=== PATIENT | female | born 1955 | race African-American/Black ===

== ENCOUNTER 2017-09-28 11:20 | Day surgery (SDC) | payer OTHER ==
--- OUTSIDE RECORDS SUMMARY | 2017-09-28 12:01 | XMS REPORT ---
:1955 Author Organization eClinicalWorks Care Team Providers Name Role Phone Landeros, Na Provider Role Unavailable Allergies, Adverse Reactions, Alerts Substance Reaction Event Type Sulfamethoxazole itch Drug Allergy Ciprofloxacin itch Drug Allergy Problems Problem Type Condition Code Onset Dates Condition Status Assessment Depression with anxiety F41.8 Active Assessment Diabetic neuropathy, painful E11.40 Active Assessment Urinary tract infection, site not N39.0 Active specified Assessment Rectal bleeding K62.5 Active Assessment Unspecified Escherichia coli [E. B96.20 Active coli] as the cause of diseases classified elsewhere Assessment Nicotine dependence F17.200 Active Assessment Allergic rhinitis J30.9 Active Assessment COPD (chronic obstructive pulmonary J44.9 Active disease) Assessment Hyperlipidemia E78.5 Active Problem Allergic rhinitis J30.9 Active Assessment Hypertension I10 Active Problem Hyperlipidemia E78.5 Active Assessment Type 2 diabetes E11.9 Active Problem Type 2 diabetes E11.9 Active Problem Snoring R06.83 Active Problem Glaucoma H40.9 Active Problem Rectal bleeding K62.5 Active Problem Urinary tract infection, site not N39.0 Active specified Problem Urinary incontinence R32 Active Problem Depression with anxiety F41.8 Active Problem Stress incontinence N39.3 Active Problem Degeneration of lumbar or M51.37 Active lumbosacral intervertebral disc Problem Encounter for screening colonoscopy Z12.11 Active Problem History of colon polyps Z86.010 Active Problem Diabetic neuropathy, painful E11.40 Active Problem Unspecified Escherichia coli [E. B96.20 Active coli] as the cause of diseases classified elsewhere Assessment History of colon polyps Z86.010 Active Problem Nicotine dependence F17.200 Active Assessment Encounter for screening colonoscopy Z12.11 Active Problem Dermatitis L30.9 Active Problem Microscopic hematuria R31.2 Active Problem ASCUS of cervix with negative high R87.610 Active risk HPV Problem COPD (chronic obstructive pulmonary J44.9 Active disease) Problem Hypertension I10 Active Problem Insomnia G47.00 Active Problem Vitamin D deficiency E55.9 Active Medications Medication Code Code Instructions Start End Date Status Dosage System Date Alcohol Prep NDC 0 twice a day MayAugust 16, Active as directed Pads 2017 2019 Glucometer ND 0 n/s n/s use as MayAugust 21, Active one directed 2017 Breo Ellipta ND 86027351919 100-25 MCG/INH Sep 20, Active 1 puff Inhalation Once 2017 a day Prometrium ND 93069185747 100 MG Orally Active 2 capsules Once a day at bedtime Cozaar ND 20236564905 100 MG Active 1 EACH ONCE A DAY ORALLY Effexor XR ND 35356654292 150 MG Orally Active 1 capsule Once a day with food blood glucose NDC 0 n/s n/s twice a MayAugust 16, Active one test strip day 2017 Lyrica ND 67988447805 75 MG Orally Active 1 capsule 1 Twice a day to 3 hours before bedtime in the evening Albuterol ND 90794887690 (5 MG/ML) 0.5% Active 1 ml as Sulfate Inhalation needed every 6 hrs Augmentin [facility] 82525617402 875-125 MG May Active 1 tablet Orally every 12 2017 hrs Chantix ND 94522209244 1 MG Orally MaySep 20, Active 1 tablet Continuing Twice a day 2017 Month Quinten Vitamin D3 ND 58070787948 50,000 PO once Active one tab a week Duexis [facility] 19181695685 800-26.6 MG Active 1 tablet Orally Three times a day Spiriva ND 24990059026 18 MCG Active 1 capsule HandiHaler Inhalation Once a day Metformin HCl ND 16407667917 850 MG Active 1 EACH 3 TIMES A DAY ORALLY Chantix [facility] 98973984501 0.5 MG X 11 & 1 Active not defined Starting Month MG X 42 Orally Quinten Simvastatin ND 08932899180 10 MG Orally Active 1 tablet in Once a day the evening ProAir HFA ND 70798299400 108 (90 Base) Active 2 puffs as MCG/ACT needed Inhalation every 6 hrs Lancets Super NDC 0 n/s finger May Active one Thin stick once 2017 HydrOXYzine ND 39678531750 25 MG Orally Active 1 capsule Pamoate every 8 hrs as needed Results No Known Results Summary Purpose eClinicalWorks Submission
--- OUTSIDE RECORDS SUMMARY | 2017-09-28 12:01 | XMS REPORT ---
:1955 Author Organization eClinicalWorks Care Team Providers Name Role Phone Zainab Hull Provider Role Unavailable Allergies, Adverse Reactions, Alerts Substance Reaction Event Type Sulfamethoxazole itch Drug Allergy Ciprofloxacin itch Drug Allergy Problems Problem Type Condition Code Onset Dates Condition Status Problem Allergic rhinitis J30.9 Active Assessment Stress incontinence N39.3 Active Problem Hyperlipidemia E78.5 Active Assessment Microhematuria R31.29 Active Problem Type 2 diabetes E11.9 Active [...] as the cause of diseases classified elsewhere Problem Nicotine dependence F17.200 Active Problem Dermatitis L30.9 Active Problem Microscopic hematuria R31.2 Active Problem ASCUS of cervix with negative high R87.610 Active risk HPV Problem COPD (chronic obstructive pulmonary J44.9 Active disease) Problem Hypertension I10 Active Problem Insomnia G47.00 Active Problem Vitamin D deficiency E55.9 Active Medications Medication Code Code Instructions Start End Status Dosage System Date Date Duexis [facility] 24653597280 800-26.6 MG Active 1 tablet Orally Three times a day Cozaar [facility] 72114508218 100 MG Active 1 EACH ONCE A DAY ORALLY HydrOXYzine ND 06083888354 25 MG Orally Active 1 capsule Pamoate every 8 hrs as needed Gabapentin ND 11723175410 300 MG Orally June 12, Active 1 capsule Twice a day 2018 before bedtime ProAir HFA [facility] 19656287768 108 (90 Base) Active 2 puffs as MCG/ACT needed Inhalation every 6 hrs Vitamin D3 [facility] 61558459408 50,000 PO once Active one tab a week Lancets Super NDC 0 n/s finger May Active one Thin stick once 2017 Chantix ND 11307181573 0.5 MG X 11 & 1 Active not defined Starting Month MG X 42 Orally Quinten Glucometer NDC 0 n/s n/s use as May Active one directed 2017 blood glucose NDC 0 n/s n/s twice a May Active one test strip day 2017 Breo Ellipta ND 14753965992 100-25 MCG/INH Sep 20, Active 1 puff Inhalation Once 2017 a day Spiriva ND 56849066250 18 MCG Active 1 capsule HandiHaler Inhalation Once a day Albuterol ND 47141441616 (5 MG/ML) 0.5% Active 1 ml as Sulfate Inhalation needed every 6 hrs Prometrium ND 97971797428 100 MG Orally Active 2 capsules Once a day at bedtime Chantix ND 88620361838 1 MG Orally MaySep 20, Active 1 tablet Continuing Twice a day 2017 Month Quinten Alcohol Prep NDC 0 twice a day May Active as directed Pads 2017 Effexor XR ND 44054384281 150 MG Orally Active 1 capsule Once a day with food Simvastatin ND 83838713725 10 MG Orally Active 1 tablet in Once a day the evening Metformin HCl ND 40746736318 850 MG Active 1 EACH 3 TIMES A DAY ORALLY Results Name Result Date Reference Range Unit Abnormality Flag URINALYSIS AUTO W/O SCOPE (15207) ----EDWARDO neg [id number] ----NIT neg [id number] ----PROTEIN neg [id number] ----pH 5.0 20170613 ----GLUCOSE neg [id number] ----KETONES neg [id number] ----SPECIFIC GRAVITY 1.020 [id number] ----BLO 2+ [id number] PVR ----PVR 12 [id number] Summary Purpose eClinicalWorks Submission
--- OUTSIDE RECORDS SUMMARY | 2017-09-28 12:01 | XMS REPORT ---
:1955 Author Organization eClinicalWorks Care Team Providers Name Role Phone Landeros, Na Provider Role Unavailable Allergies No Known Allergies Problems Problem Type Condition Code Onset Dates Condition Status Problem Type 2 diabetes E11.9 Active Problem Snoring R06.83 Active Problem Glaucoma H40.9 Active Problem Rectal bleeding K62.5 Active Problem Urinary incontinence R32 Active Problem Urinary tract infection, site not N39.0 Active specified Problem Depression with anxiety F41.8 Active Problem Degeneration of lumbar or M51.37 Active lumbosacral intervertebral disc Problem Stress incontinence N39.3 Active Problem Encounter for screening colonoscopy Z12.11 Active [...] I10 Active Problem Insomnia G47.00 Active Problem Allergic rhinitis J30.9 Active Assessment Diabetic neuropathy, painful E11.40 Active Problem Vitamin D deficiency E55.9 Active Problem Hyperlipidemia E78.5 Active Medications Medication Code Code Instructions Start End Date Status Dosage System Date Gabapentin ND 85841839936 300 MG Orally June 12, Active 1 capsule Twice a day 2018 before bedtime Lyrica ND 30102390605 75 MG Orally Inactive 1 capsule Twice a day 1 to 3 hours before bedtime in the evening Results No Known Results Summary Purpose eClinicalWorks Submission
--- OUTSIDE RECORDS SUMMARY | 2017-09-28 12:01 | XMS REPORT | Continuity of Care Document ---
:1955 Author Organization Interface Problems Problem Status Onset Date Classification Date Comments Source Reported Medications Medication Details Route Status Patient Ordering Order Source Instructions Provider Date Allergies, Adverse Reactions, Alerts Substance Category Reaction Severity Reaction Status Date Comments Source type Reported Immunizations Immunization Date Given Site Status Last Updated Comments Source Results Order Results Value Reference Date Interpretation Comments Source Name Range Vital Signs Vital Sign Value Date Comments Source Encounters Location Location Encounter Encounter Reason Attending ADM DC Status Source Details Type Number For Provider Date Date Visit Outpatient [id number] ZACK 07/12 [facility] [place] [id number] ZACK 08/18 [facility] [place] Procedures Procedure Code Date Perfomer Comments Source
--- OUTSIDE RECORDS SUMMARY | 2017-09-28 12:01 | XMS REPORT | Clinical Summary ---
:1955 Author Organization [facility] Address [address] [place] [address] Phone Care Team Providers Name Role Phone Unavailable Primary Care Provider Unavailable Allergies Active Allergy Reactions Severity Noted Date Comments Sulfa (Sulfonamide Antibiotics) Rash Low 05/06/2014 Current Medications Prescription Sig. Disp. Refills Start Date End Date Status simvastatin (ZOCOR) Take 20 mg by mouth Active 20 MG tablet nightly. metFORMIN Take 850 mg by mouth Active (GLUCOPHAGE) 850 MG 2 (two) times daily tablet with breakfast and dinner. gabapentin Take 300 mg by mouth Active (NEURONTIN) 300 MG 3 (three) times capsule daily. levofloxacin Take 750 mg by mouth Active (LEVAQUIN) 750 MG daily. tablet budesonide-formotero Inhale 2 puffs by Active l (SYMBICORT) 80-4.5 mouth via inhaler 2 mcg/actuation (two) times daily. inhaler albuterol HFA Inhale 1 puff by Active (VENTOLIN HFA) 90 mouth via inhaler mcg/actuation every 6 (six) hours inhaler as needed for Wheezing. venlafaxine Take 75 mg by mouth Active (EFFEXOR) 75 MG 2 (two) times daily. tablet lisinopril Take 5 mg by mouth Active (PRINIVIL,ZESTRIL) 5 daily. MG tablet ipratropium Take 500 mcg by Active (ATROVENT) 0.02 % nebulization 4 nebulizer solution (four) times daily. albuterol Take 2.5 mg by Active (PROVENTIL) 2.5 nebulization. mg/0.5 mL Nebu nebulizer solution albuterol HFA 2 puffs q 4 hrs for 1 Inhaler 0 05/07/2014 Active (PROAIR HFA) 90 two days, then prn mcg/actuation inhaler Active Problems Problem Noted Date COPD exacerbation (HCC) 05/06/2014 Social History Tobacco Use Types Packs/Day Years Used Date Current Every Day Smoker Cigarettes 0.5 Alcohol Use Drinks/Week oz/Week Comments No Sex Assigned at Date Recorded Not on file Last Filed Vital Signs Not on file Plan of Treatment Not on file Results Not on fileafter 09/27/2016
--- OUTSIDE RECORDS SUMMARY | 2017-09-28 12:02 | XMS REPORT ---
:1955 Author Organization eClinicalWorks Care Team Providers Name Role Phone Zainab Hull Provider Role Unavailable Allergies No Known Allergies [...] G47.00 Active Problem Allergic rhinitis J30.9 Active Problem Vitamin D deficiency E55.9 Active Problem Hyperlipidemia E78.5 Active Medications No Known Medications Results No Known Results Summary Purpose eClinicalWorks Submission
--- OUTSIDE RECORDS SUMMARY | 2017-09-28 12:02 | XMS REPORT ---
:1955 Author Organization eClinicalWorks Care Team Providers Name Role Phone Landeros, Na Provider Role Unavailable Allergies, Adverse Reactions, Alerts Substance Reaction Event Type Sulfamethoxazole itch Drug Allergy Ciprofloxacin itch Drug Allergy Problems Problem Type Condition Code Onset Dates Condition Status Assessment Depression with anxiety F41.8 Active Assessment Rectal bleeding K62.5 Active Assessment Nicotine dependence F17.200 Active Assessment Allergic rhinitis J30.9 Active Assessment Diabetic neuropathy, painful E11.40 Active Assessment COPD (chronic obstructive pulmonary J44.9 Active disease) Assessment Hyperlipidemia E78.5 Active Assessment Hypertension I10 Active Problem Allergic rhinitis J30.9 Active Assessment Type 2 diabetes E11.9 Active Problem Hyperlipidemia E78.5 Active Problem Type 2 diabetes E11.9 Active [...] Start End Status Dosage System Date Date Vitamin D3 NDC 77549959697 50,000 PO once Active one tab a week Metformin HCl ND 77777238981 850 MG Active 1 EACH 2 TIMES A DAY ORALLY Glucometer ND 0 n/s n/s use as May Active one directed 2017 Effexor XR ND 89932713121 150 MG Orally Active 1 capsule Once a day with food Alcohol Prep NDC 0 twice a day May Active as directed Pads 2017 Chantix ND 45986980099 1 MG Orally Active 1 tablet Continuing Twice a day Month Quinten Spiriva [facility] 83325403026 18 MCG Active 1 capsule HandiHaler Inhalation Once a day Duexis [facility] 24279982503 800-26.6 MG Active 1 tablet Orally Three times a day blood glucose ND 0 n/s n/s twice a May Active one test strip day 2017 Prometrium ND 87293157578 100 MG Orally Active 2 capsules Once a day at bedtime Gabapentin ND 38089190259 300 MG Orally June 12, Active 1 capsule Twice a day 2017 before bedtime Montelukast ND 80645170409 10 MG Orally August 21, Active 1 tablet in Sodium Once a day 2017 the evening Nasonex ND 85753345191 50 MCG/ACT August 21, Active 2 sprays in Nasally Once a 2017 each day nostril Cozaar [facility] 11742180782 100 MG Active 1 EACH ONCE A DAY ORALLY Lyrica ND 32142919924 75 MG Orally Active 1 capsule 1 Twice a day to 3 hours before bedtime in the evening HydrOXYzine ND 58923420978 25 MG Orally Active 1 capsule Pamoate every 8 hrs as needed Chantix [facility] 78283898247 0.5 MG X 11 & 1 Active not defined Starting Month MG X 42 Orally Quinten ProAir HFA [facility] 53992456180 108 (90 Base) Active 2 puffs as MCG/ACT needed Inhalation every 6 hrs Albuterol ND 95502746431 (5 MG/ML) 0.5% Active 1 ml as Sulfate Inhalation needed every 6 hrs Lancets Super ND 0 n/s finger May Active one Thin stick once 2017 Simvastatin ND 98273669037 10 MG Orally Active 1 tablet in Once a day the evening Breo Ellipta ND 45689688259 100-25 MCG/INH Active 1 puff Inhalation Once a day Results No Known Results Summary Purpose eClinicalWorks Submission
--- OUTSIDE RECORDS SUMMARY | 2017-09-28 12:02 | XMS REPORT ---
:1955 Author Organization eClinicalWorks Care Team Providers Name Role Phone Kurtis Zainab Provider Role Unavailable Allergies, Adverse Reactions, Alerts Substance Reaction Event Type Sulfamethoxazole itch Drug Allergy Ciprofloxacin itch Drug Allergy Problems Problem Type Condition Code Onset Dates Condition Status Assessment Stress incontinence N39.3 Active Problem Allergic rhinitis J30.9 Active Assessment Microhematuria R31.29 Active Problem Hyperlipidemia E78.5 Active Problem Type [...] Start End Status Dosage System Date Date Albuterol [facility] 52167433206 (5 MG/ML) 0.5% Active 1 ml as Sulfate Inhalation needed every 6 hrs Chantix ND 23120604535 0.5 MG X 11 & 1 Active not defined Starting Month MG X 42 Orally Quinten Vitamin D3 ND 64857409039 50,000 PO once Active one tab a week Alcohol Prep NDC 0 twice a day May Active as directed Pads 2017 Gabapentin ND 03073524880 300 MG Orally June 12, Active 1 capsule Twice a day 2017 before bedtime Chantix ND 20885908324 1 MG Orally Active 1 tablet Continuing Twice a day Month Quinten Lyrica [facility] 72766227688 75 MG Orally Active 1 capsule 1 Twice a day to 3 hours before bedtime in the evening HydrOXYzine [facility] 41504706628 25 MG Orally Active 1 capsule Pamoate every 8 hrs as needed ProAir HFA [facility] 72905070558 108 (90 Base) Active 2 puffs as MCG/ACT needed Inhalation every 6 hrs Simvastatin [facility] 86201397301 10 MG Orally Active 1 tablet in Once a day the evening Montelukast ND 43336795867 10 MG Orally August 21, Active 1 tablet in Sodium Once a day 2017 the evening Nasonex ND 27083269045 50 MCG/ACT August 21, Active 2 sprays in Nasally Once a 2017 each day nostril Cozaar [facility] 53565129889 100 MG Active 1 EACH ONCE A DAY ORALLY Effexor XR [facility] 91634766094 150 MG Orally Active 1 capsule Once a day with food Prometrium [facility] 94904954499 100 MG Orally Active 2 capsules Once a day at bedtime Duexis [facility] 93132604336 800-26.6 MG Active 1 tablet Orally Three times a day Spiriva [facility] 21176462727 18 MCG Active 1 capsule HandiHaler Inhalation Once a day Metformin HCl [facility] 14512071314 850 MG Active 1 EACH 2 TIMES A DAY ORALLY Lancets Super NDC 0 n/s finger May Active one Thin stick once 2017 blood glucose NDC 0 n/s n/s twice a May Active one test strip day 2017 Breo Ellipta [facility] 31438489047 100-25 MCG/INH Active 1 puff Inhalation Once a day Results Name Result Date Reference Range Unit Abnormality Flag URINALYSIS AUTO W/O SCOPE (85215) ----EDWARDO neg [id number] ----NIT neg [id number] ----PROTEIN neg [id number] ----pH 6.0 [id number] ----BLO 1+ [id number] ----GLUCOSE neg [id number] ----BILIRUBIN neg [id number] ----KETONES neg [id number] ----SPECIFIC GRAVITY <+1.005 [id number] Summary Purpose eClinicalWorks Submission
[2017-09-28] MEDS ORDERED: NA CHLORIDE 0.9% 1,000 ML ONE (12:23)
[2017-09-28] MEDS ORDERED: PROPOFOL 200 MG/20 ML VIAL IV ONE ×2 (14:16)
[2017-09-28 15:43] VITALS: BP 163/84; TEMP 97.9; O2SAT 96
--- NOTE | 2017-09-29 02:24 | OP ---
Surgeon: aDmian Latif MD Procedure To Be Performed: Esophagogastroduodenoscopy and colonoscopy. Indication For Procedure: For the upper, it is longstanding GERD, dyspepsia, diarrhea. For the lowe r, it is diarrhea, bowel habit change as well as a screening. Plan For Anesthesia: Monitored anesthesia care. Complexity: Average. Technique: After obtaining informed consent from the patient and explaining risks and complications which include, but are not limited to bleeding, perforation, infection, and anesthesia complication, the patient was placed in a left lateral position for the upper endoscopy and sedation was given. Th e scope was advanced into the mouth and carefully guided up to the fourth portion of the duodenum. A fter the completion of examination, the scope and equipment were withdrawn and upper endoscopy proced ure terminated in a safe manner. Findings: Normal upper and mid esophagus. In the distal esophagus, a small hiatal hernia was seen. Stomach: Mild patchy erythema seen in the body and antrum. Biopsies taken. Duodenum: The bulb, second, third, and fourth portion appeared normal. Small bowel biopsies were ta oma. Next, we proceeded with a colonoscopy. The patient's bed was rotated so that she is in the ideal col onoscopy position. Digital rectal exam was performed. The scope was advanced into the rectum. Subs equently, it was carefully guided up until the cecum. The cecum was identified by the appendiceal or ifice and ileocecal valve. The scope was gradually withdrawn while carefully examining the mucosa. The scope withdrawal time was 16 minutes. Quality of bowel prep was 2+2+2 is equal to 6 x 9. Findings: The entire colonic mucosa very mild pigmentation was seen, possible melanosis. Random bio psies were taken due to diarrhea to rule out microscopic colitis. Several small diverticula seen in the sigmoid. There were numerous polyps seen in the colon, 4 in the transverse colon, 2 at the hepat ic flexure, 2 flat polyps in the cecum. All of these range in size from 4 mm to 6 mm. These were re moved with hot biopsies. In the proximal ascending colon, a large sessile polyp around 1.5 cm to 1.7 cm was visualized. This was first injected by tattoo for lift and then complete resection was done with the help of snare polypectomy. The polypectomy site was clean, however, to prevent any risk of bleeding, a clip was prophylactically also placed successfully. Retroflexion revealed grade 1 paid intern al hemorrhoids. Complications: None. Tolerance To Anesthesia: Excellent. Postoperative Diagnoses: Multiple polyps, diverticulosis. Plan: 1.Await pathology results. 2.Follow up in the GI clinic in 2 weeks. 3.Avoid blood thinners, NSAIDs for the next 7 days. 4.We will need staged colonoscopy in 6 months due to multiple polyps for concern of residual polyp a nd missed polyps. US/MODL Voice ID: [id number] Report ID: [id number]
== END 2017-09-28 16:03 | disposition home or self-care (01) ==
LOC: OR 11:20
PROVIDERS: ATTEND Internal Medicine Gastroenterology
PROC: 0DBK8ZX Excision of Ascending Colon, Via Natural or Artificial Opening Endoscopic, Diagnostic (ICD-10-PCS; 2017-09-28)
PROC: 0DBE8ZX Excision of Large Intestine, Via Natural or Artificial Opening Endoscopic, Diagnostic (ICD-10-PCS; 2017-09-28)
PROC: 0DB98ZX Excision of Duodenum, Via Natural or Artificial Opening Endoscopic, Diagnostic (ICD-10-PCS; 2017-09-28)
PROC: 0DB78ZX Excision of Stomach, Pylorus, Via Natural or Artificial Opening Endoscopic, Diagnostic (ICD-10-PCS; 2017-09-28)
PROC: 0DBH8ZX Excision of Cecum, Via Natural or Artificial Opening Endoscopic, Diagnostic (ICD-10-PCS; principal; 2017-09-28 13:30)
PROC: 0DBL8ZX Excision of Transverse Colon, Via Natural or Artificial Opening Endoscopic, Diagnostic (ICD-10-PCS; 2017-09-28 13:30)
DX: D12.0 Benign neoplasm of cecum (principal); D12.2 Benign neoplasm of ascending colon; D12.3 Benign neoplasm of transverse colon; K29.70 Gastritis, unspecified, without bleeding; K44.9 Diaphragmatic hernia without obstruction or gangrene; K57.90 Diverticulosis of intestine, part unspecified, without perforation or abscess without bleeding; E66.9 Obesity, unspecified; K21.9 Gastro-esophageal reflux disease without esophagitis; R19.7 Diarrhea, unspecified; Z86.010 Personal history of colon polyps; R10.13 Epigastric pain; Z79.84 Long term (current) use of oral hypoglycemic drugs; R19.4 Change in bowel habit; K92.1 Melena; I10 Essential (primary) hypertension; E11.9 Type 2 diabetes mellitus without complications; E78.00 Pure hypercholesterolemia, unspecified; F17.210 Nicotine dependence, cigarettes, uncomplicated
CPT/HCPCS: 82962; 88305; 88312; J7030

== ENCOUNTER 2017-10-30 03:16 | Observation (INO) | payer OTHER ==
--- OUTSIDE RECORDS SUMMARY | 2017-10-30 03:19 | XMS REPORT ---
[...] Active one directed 2017 Breo Ellipta ND 31303453253 100-25 MCG/INH Sep 20, Active 1 puff Inhalation Once 2017 a day Prometrium ND 03828408195 100 MG Orally Active 2 capsules Once a day at bedtime Cozaar ND 99034906671 100 MG Active 1 EACH ONCE A DAY ORALLY Effexor XR ND 45475390870 150 MG Orally Active 1 capsule Once a day with food blood glucose NDC 0 n/s n/s twice a MayAugust 16, Active one test strip day 2017 Lyrica ND 31545520834 75 MG Orally Active 1 capsule 1 Twice a day to 3 hours before bedtime in the evening Albuterol ND 53237658961 (5 MG/ML) 0.5% Active 1 ml as Sulfate Inhalation needed every 6 hrs Augmentin [facility] 63070063501 875-125 MG May Active 1 tablet Orally every 12 2017 hrs Chantix ND 60749069134 1 MG Orally MaySep 20, Active 1 tablet Continuing Twice a day 2017 Month Quinten Vitamin D3 ND 77667658601 50,000 PO once Active one tab a week Duexis [facility] 51934577379 800-26.6 MG Active 1 tablet Orally Three times a day Spiriva ND 77337564405 18 MCG Active 1 capsule HandiHaler Inhalation Once a day Metformin HCl ND 50413010559 850 MG Active 1 EACH 3 TIMES A DAY ORALLY Chantix [facility] 65074728702 0.5 MG X 11 & 1 Active not defined Starting Month MG X 42 Orally Quinten Simvastatin ND 90446835247 10 MG Orally Active 1 tablet in Once a day the evening ProAir HFA ND 65982455334 108 (90 Base) Active 2 puffs as MCG/ACT needed Inhalation every 6 hrs Lancets Super NDC 0 n/s finger May Active one Thin stick once 2017 HydrOXYzine ND 11746986802 25 MG Orally Active 1 capsule Pamoate every 8 hrs as needed Results No Known Results Summary Purpose eClinicalWorks Submission
--- OUTSIDE RECORDS SUMMARY | 2017-10-30 03:19 | XMS REPORT | Continuity of Care Document ---
[...] Number For Provider Date Date Visit Outpatient [id number] ZACK 07/12 [facility] [place] Outpatient [id number] ZACK 08/18 [facility] [place] Procedures Procedure Code Date Perfomer Comments Source
--- OUTSIDE RECORDS SUMMARY | 2017-10-30 03:19 | XMS REPORT | Clinical Summary ---
:1955 Author Organization [facility] Address [address] [place] [address] Phone Care Team Providers Name Role Phone [...] Not on file Results Not on fileafter 10/29/2016
--- OUTSIDE RECORDS SUMMARY | 2017-10-30 03:19 | XMS REPORT ---
[...] Dosage System Date Date Vitamin D3 NDC 60011258583 50,000 PO once Active one tab a week Metformin HCl ND 91651370379 850 MG Active 1 EACH 2 TIMES A DAY ORALLY Glucometer ND 0 n/s n/s use as May Active one directed 2017 Effexor XR ND 81941367701 150 MG Orally Active 1 capsule Once a day with food Alcohol Prep NDC 0 twice a day May Active as directed Pads 2017 Chantix ND 10966473578 1 MG Orally Active 1 tablet Continuing Twice a day Month Quinten Spiriva [facility] 81273460010 18 MCG Active 1 capsule HandiHaler Inhalation Once a day Duexis [facility] 80396914377 800-26.6 MG Active 1 tablet Orally Three times a day blood glucose ND 0 n/s n/s twice a May Active one test strip day 2017 Prometrium ND 94367712191 100 MG Orally Active 2 capsules Once a day at bedtime Gabapentin ND 81359621987 300 MG Orally June 12, Active 1 capsule Twice a day 2017 before bedtime Montelukast ND 44678998464 10 MG Orally August 21, Active 1 tablet in Sodium Once a day 2017 the evening Nasonex ND 46335877726 50 MCG/ACT August 21, Active 2 sprays in Nasally Once a 2017 each day nostril Cozaar [facility] 15321608184 100 MG Active 1 EACH ONCE A DAY ORALLY Lyrica ND 93969275443 75 MG Orally Active 1 capsule 1 Twice a day to 3 hours before bedtime in the evening HydrOXYzine ND 58757530748 25 MG Orally Active 1 capsule Pamoate every 8 hrs as needed Chantix [facility] 87940143736 0.5 MG X 11 & 1 Active not defined Starting Month MG X 42 Orally Quinten ProAir HFA [facility] 62290822988 108 (90 Base) Active 2 puffs as MCG/ACT needed Inhalation every 6 hrs Albuterol ND 68198731971 (5 MG/ML) 0.5% Active 1 ml as Sulfate Inhalation needed every 6 hrs Lancets Super ND 0 n/s finger May Active one Thin stick once 2017 Simvastatin ND 38894404352 10 MG Orally Active 1 tablet in Once a day the evening Breo Ellipta ND 76134884198 100-25 MCG/INH Active 1 puff Inhalation Once a day Results No Known Results Summary Purpose eClinicalWorks Submission
--- OUTSIDE RECORDS SUMMARY | 2017-10-30 03:19 | XMS REPORT ---
[...] Date Status Dosage System Date Gabapentin ND 39081329996 300 MG Orally June 12, Active 1 capsule Twice a day 2018 before bedtime Lyrica ND 17467943833 75 MG Orally Inactive 1 capsule Twice a day 1 to 3 hours before bedtime in the evening Results No Known Results Summary Purpose eClinicalWorks Submission
--- OUTSIDE RECORDS SUMMARY | 2017-10-30 03:19 | XMS REPORT ---
[...] End Status Dosage System Date Date Duexis [facility] 25432924298 800-26.6 MG Active 1 tablet Orally Three times a day Cozaar [facility] 48586451090 100 MG Active 1 EACH ONCE A DAY ORALLY HydrOXYzine ND 97441548003 25 MG Orally Active 1 capsule Pamoate every 8 hrs as needed Gabapentin ND 51670672730 300 MG Orally June 12, Active 1 capsule Twice a day 2018 before bedtime ProAir HFA [facility] 71068036472 108 (90 Base) Active 2 puffs as MCG/ACT needed Inhalation every 6 hrs Vitamin D3 [facility] 15186544439 50,000 PO once Active one tab a week Lancets Super NDC 0 n/s finger May Active one Thin stick once 2017 Chantix ND 34591021823 0.5 MG X 11 & 1 Active not defined Starting Month MG X 42 Orally Quinten Glucometer NDC 0 n/s n/s use as May Active one directed 2017 blood glucose NDC 0 n/s n/s twice a May Active one test strip day 2017 Breo Ellipta ND 41110889585 100-25 MCG/INH Sep 20, Active 1 puff Inhalation Once 2017 a day Spiriva ND 78465328079 18 MCG Active 1 capsule HandiHaler Inhalation Once a day Albuterol ND 99770929142 (5 MG/ML) 0.5% Active 1 ml as Sulfate Inhalation needed every 6 hrs Prometrium ND 63884808202 100 MG Orally Active 2 capsules Once a day at bedtime Chantix ND 31975673166 1 MG Orally MaySep 20, Active 1 tablet Continuing Twice a day 2017 Month Quinten Alcohol Prep NDC 0 twice a day May Active as directed Pads 2017 Effexor XR ND 77154233249 150 MG Orally Active 1 capsule Once a day with food Simvastatin ND 92828487427 10 MG Orally Active 1 tablet in Once a day the evening Metformin HCl ND 20442834683 850 MG Active 1 EACH 3 TIMES A DAY ORALLY Results Name Result Date Reference Range Unit Abnormality Flag URINALYSIS AUTO W/O SCOPE (11517) ----EDWARDO neg [id number] ----NIT neg [id number] ----PROTEIN neg [id number] ----pH 5.0 20170613 ----GLUCOSE neg [id number] ----KETONES neg [id number] ----SPECIFIC GRAVITY 1.020 [id number] ----BLO 2+ [id number] PVR ----PVR 12 [id number] Summary Purpose eClinicalWorks Submission
--- OUTSIDE RECORDS SUMMARY | 2017-10-30 03:19 | XMS REPORT ---
[...] End Status Dosage System Date Date Albuterol [facility] 47977978683 (5 MG/ML) 0.5% Active 1 ml as Sulfate Inhalation needed every 6 hrs Chantix ND 46786176056 0.5 MG X 11 & 1 Active not defined Starting Month MG X 42 Orally Quinten Vitamin D3 ND 21386467082 50,000 PO once Active one tab a week Alcohol Prep NDC 0 twice a day May Active as directed Pads 2017 Gabapentin ND 68718669562 300 MG Orally June 12, Active 1 capsule Twice a day 2017 before bedtime Chantix ND 27677579839 1 MG Orally Active 1 tablet Continuing Twice a day Month Quinten Lyrica [facility] 43568420000 75 MG Orally Active 1 capsule 1 Twice a day to 3 hours before bedtime in the evening HydrOXYzine [facility] 62669934450 25 MG Orally Active 1 capsule Pamoate every 8 hrs as needed ProAir HFA [facility] 18561019651 108 (90 Base) Active 2 puffs as MCG/ACT needed Inhalation every 6 hrs Simvastatin [facility] 79991148402 10 MG Orally Active 1 tablet in Once a day the evening Montelukast ND 31736941996 10 MG Orally August 21, Active 1 tablet in Sodium Once a day 2017 the evening Nasonex ND 55938251804 50 MCG/ACT August 21, Active 2 sprays in Nasally Once a 2017 each day nostril Cozaar [facility] 05707561762 100 MG Active 1 EACH ONCE A DAY ORALLY Effexor XR [facility] 70922521461 150 MG Orally Active 1 capsule Once a day with food Prometrium [facility] 73753710670 100 MG Orally Active 2 capsules Once a day at bedtime Duexis [facility] 96245398573 800-26.6 MG Active 1 tablet Orally Three times a day Spiriva [facility] 36846245092 18 MCG Active 1 capsule HandiHaler Inhalation Once a day Metformin HCl [facility] 22639117037 850 MG Active 1 EACH 2 TIMES A DAY ORALLY Lancets Super NDC 0 n/s finger May Active one Thin stick once 2017 blood glucose NDC 0 n/s n/s twice a May Active one test strip day 2017 Breo Ellipta [facility] 18142598349 100-25 MCG/INH Active 1 puff Inhalation Once a day Results Name Result Date Reference Range Unit Abnormality Flag URINALYSIS AUTO W/O SCOPE (84945) ----EDWARDO neg [id number] ----NIT neg [id number] ----PROTEIN neg [id number] ----pH 6.0 20170912 ----BLO 1+ [id number] ----GLUCOSE neg [id number] ----BILIRUBIN neg [id number] ----KETONES neg [id number] ----SPECIFIC GRAVITY <+1.005 [id number] Summary Purpose eClinicalWorks Submission
--- OUTSIDE RECORDS SUMMARY | 2017-10-30 03:20 | XMS REPORT ---
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 lumbosacral intervertebral disc Problem Microscopic hematuria R31.2 Active Problem Depression with anxiety F41.8 Active Problem ASCUS of cervix with negative high R87.610 Active risk HPV Problem Encounter for screening colonoscopy Z12.11 Active Problem History of colon polyps Z86.010 Active Problem COPD with acute lower respiratory J44.0 Active infection Problem Stress incontinence N39.3 Active Problem Dermatitis L30.9 Active Problem Nicotine dependence F17.200 Active Problem SOB (shortness of breath) on R06.02 Active exertion Problem Urinary incontinence R32 Active Problem Diabetic neuropathy, painful E11.40 Active Problem Unspecified Escherichia coli [E. B96.20 Active coli] as the cause of diseases classified elsewhere Problem Rectal bleeding K62.5 Active Problem Urinary tract infection, site not N39.0 Active specified Problem COPD (chronic obstructive pulmonary J44.9 Active disease) Problem Hypertension I10 Active Problem Insomnia G47.00 Active Problem Vitamin D deficiency E55.9 Active Problem Glaucoma H40.9 Active Problem Snoring R06.83 Active Problem Allergic rhinitis J30.9 Active Problem Hyperlipidemia E78.5 Active Medications Medication Code Code Instructions Start End Status Dosage System Date Date Alcohol Prep NDC 0 twice a day May Active as directed Pads 2017 Gabapentin NDC 79398435994 300 MG Orally June 12, Active 1 capsule Twice a day 2017 before bedtime HydrOXYzine ND 96625235138 25 MG Orally Active 1 capsule Pamoate every 8 hrs as needed Duexis [facility] 11480684316 800-26.6 MG Active 1 tablet Orally Three times a day Nasonex ND 80514411068 50 MCG/ACT August 21, Active 2 sprays in Nasally Once a 2017 each day nostril Azithromycin ND 72218523432 500 MG Orally Oct 08Oct Active one tablet Once a day 2017 Ipratropium-Albu ND 41183670360 0.5-2.5 (3) Oct 08, Active 3 ml terol MG/3ML 2018 Inhalation every 6 hrs Lancets Super ND 0 n/s finger May Active one Thin stick once 2017 Albuterol ND 32433317896 (5 MG/ML) 0.5% Active 1 ml as Sulfate Inhalation needed every 6 hrs Simvastatin ND 97340179100 10 MG Orally Active 1 tablet in Once a day the evening Breo Ellipta ND 70669196003 100-25 MCG/INH Active 1 puff Inhalation Once a day ProAir HFA [facility] 45843033959 108 (90 Base) Active 2 puffs as MCG/ACT needed Inhalation every 6 hrs PredniSONE ND 67734208655 20 MG Orally Oct 08Oct Active 1 tablet Twice a day for 2017 06, 5 days and then 2017 daily for 5 days Doxycycline ND 64096839238 100 MG Orally Oct 08Oct Active 1 tablet Hyclate Twice a day 2017 blood glucose [facility] 0 n/s n/s twice a May Active one test strip day 2017 Chantix Starting [facility] 88684856011 0.5 MG X 11 & 1 Active not defined Month Quinten MG X 42 Orally Metformin HCl [facility] 80145305738 850 MG Active 1 EACH 2 TIMES A DAY ORALLY Prometrium ND 37568981428 100 MG Orally Active 2 capsules Once a day at bedtime Vitamin D3 ND 31898379597 50,000 PO once Active one tab a week Lyrica ND 01497957528 75 MG Orally Active 1 capsule 1 Twice a day to 3 hours before bedtime in the evening Cozaar ND 59559917794 100 MG Active 1 EACH ONCE A DAY ORALLY Chantix ND 32074286187 1 MG Orally Active 1 tablet Continuing Month Twice a day Quinten Spiriva ND 35713883873 18 MCG Active 1 capsule HandiHaler Inhalation Once a day Effexor XR [facility] 79359036799 150 MG Orally Active 1 capsule Once a day with food Montelukast [facility] 91827888843 10 MG Orally August 21, Active 1 tablet in Sodium Once a day 2017 the evening Results No Known Results Summary Purpose eClinicalWorks Submission
--- OUTSIDE RECORDS SUMMARY | 2017-10-30 03:20 | XMS REPORT ---
[...] J30.9 Active Problem Hyperlipidemia E78.5 Active Medications No Known Medications Results No Known Results Summary Purpose eClinicalWorks Submission
[2017-10-30 03:52] LABS: Absolute Lymphocytes (CBC) 3.9 K/uL (0.7-4.9); Absolute Monocytes 0.4 K/uL (0.1-1.3); Absolute Neutrophil 2.7 K/uL (1.8-8.0); Basophils % 1.1 % (0-1.3); Eosinophils % 1.7 % (0-4.4); Hematocrit 36.9 % (36.0-45.0); Lymphocytes % 54.3 % (15.3-44.8); MCH 31.2 pg (27.0-35.0); MCV 90.2 fL (80-100); MPV 10.9 fL (7.6-11.3); Monocytes % 5.8 % (3.3-12.3); RBC Red Blood Cell Count 4.09 M/uL (3.86-4.86)
[2017-10-30 03:55] LABS: Protime INR 0.93
[2017-10-30 04:10] LABS: ALT/SGPT 21 U/L (12-78); AST/SGOT 11 U/L (15-37); Albumin 3.4 g/dL (3.4-5.0); Alkaline Phosphatase 76 U/L (45-117); BUN Blood Urea Nitrogen 18 mg/dL (7-18); Bicarbonate 27 mmol/L (21-32); Bilirubin Direct < 0.1 mg/dL (0-0.2); Bilirubin Total 0.2 mg/dL (0.2-1.0); CKMB Creatine Kinase MB < 1.0 ng/mL (0.3-3.6); Creatine Phosphokinase 92 U/L (26-192); Glucose Level 211 mg/dL (74-106); Magnesium 1.8 mg/dL (1.8-2.4); NT PRO-BNP 52 pg/mL (<125); Potassium 3.5 mmol/L (3.5-5.1); Protein, Total 6.8 g/dL (6.4-8.2); Sodium Level 142 mmol/L (136-145); Troponin (Emerg Dept Use Only) < 0.02 ng/mL (0.0-0.045)
--- NOTE | 2017-10-30 06:46 | ER ---
Nurse's Notes [facility] Name: Patricia Shoemaker Age: 62 yrs Sex: Female : 1955 Arrival Date: 10/30/2017 Time: 03:19 Bed 6 Private MD: Diagnosis: Chest pain, unspecified Presentation: 10/30 03:19 Presenting complaint: Patient states: Chest pain started 0245. pt increased with deep ak1 breathing in. pt with wet cough X2. rates pain 5/10. Transition of care: patient was not received from another setting of care. Onset of symptoms was October 30, 2017. Risk Assessment: Do you want to hurt yourself or someone else? Patient reports no desire to harm self or others. Initial Sepsis Screen: Does the patient meet any 2 criteria? No. Patient's initial sepsis screen is negative. Does the patient have a suspected source of infection? No. Patient's initial sepsis screen is negative. Care prior to arrival: 324mg aspirin given in route by EMS. 03:19 Method Of Arrival: EMS: [facility] ak1 03:19 Acuity: MICKI 3 ak1 Triage Assessment: 03:22 General: Appears in no apparent distress. Behavior is calm, cooperative. Pain: ak1 Complains of pain in chest. EENT: No signs and/or symptoms were reported regarding the EENT system. Neuro: No deficits noted. Cardiovascular: Reports chest pain, Capillary refill < 3 seconds. Respiratory: Reports cough that is Onset: The symptoms/episode began/occurred yesterday. GI: No signs and/or symptoms were reported involving the gastrointestinal system. : No signs and/or symptoms were reported regarding the genitourinary system. Derm: No signs and/or symptoms reported regarding the dermatologic system. Musculoskeletal: No signs and/or symptoms reported regarding the musculoskeletal system. Historical: - Allergies: 03:22 Sulfa (Sulfonamide Antibiotics); ak1 - Home Meds: 04:26 Spiriva with HandiHaler 18 mcg inhalation CpDv 1 cap once daily [Active]; venlafaxine ak1 150 mg oral cp24 1 cap once daily [Active]; Zyrtec 10 mg Oral cap [Active]; pantoprazole 40 mg oral TbEC 1 tab once daily [Active]; simvastatin 20 mg Oral tab 1 tab once daily [Active]; Lyrica 75mg Oral 1 cap 2 times per day [Active]; metformin 850 mg Oral tab 1 tab 2 times per day [Active]; losartan 100 mg oral tab 1 tab once daily [Active]; hydroxyzine pamoate 25 mg Oral cap PRN [Active]; montelukast 10 mg oral tab 1 tab once daily [Active]; Breo Ellipta 100-25 mcg/dose inhalation dsdv 1 puff once daily [Active]; ProAir HFA inhalation inhalation [Active]; Albuterol Nebulizer [Active]; - PMHx: 03:22 Diabetes - NIDDM; COPD; Hyperlipidemia; Hypertension; ak1 - PSHx: 03:22 Tubal ligation; BACK; colonoscopy; ak1 - Immunization history:: Adult Immunizations unknown. - Social history:: Smoking status: unknown. - Ebola Screening: : No symptoms or risks identified at this time. Screenin:24 Abuse screen: Denies threats or abuse. Denies injuries from another. Nutritional ak1 screening: No deficits noted. Tuberculosis screening: No symptoms or risk factors identified. Fall Risk None identified. Assessment: 03:24 Pain: Pain does not radiate. ak1 03:54 Reassessment: Patient appears in no apparent distress at this time. Patient and/or ak1 family updated on plan of care and expected duration. Pain level reassessed. Patient is alert, oriented x 3, equal unlabored respirations, skin warm/dry/pink. pt sent family home to obtain medication list. pt requested ice chips. pt resp even, unlabored. chest pain has since resolved. will continue to monitor. Patient states symptoms have improved. Pain: Complains of pain in xyphoid area and mid-sternal area. 04:26 Reassessment: family at bedside with home medications. pt resp even, unlabored. pt ak1 denies pain at this time. will continue to monitor. . 04:44 Reassessment: pt informed of wait for 4 hours cardiac repeat lab work at 0730. ERP ak1 agreed to pt having breakfast. pt family to bring pt something to eat. will continue to monitor. 06:33 Reassessment: Patient appears in no apparent distress at this time. Patient and/or ak1 family updated on plan of care and expected duration. Pain level reassessed. Patient is alert, oriented x 3, equal unlabored respirations, skin warm/dry/pink. Patient denies pain at this time. Patient states symptoms have improved. 06:47 Reassessment: pt informed of admission status, hospitalist at bedside. . ak1 07:01 Reassessment: report given to Robson Cantrell RN and Barbra Bone RN. ak1 07:43 Reassessment: Patient appears in no apparent distress at this time. Patient and/or sg family updated on plan of care and expected duration. Pain level reassessed. attempt to call report, Shannan Bearden reports " we didn't know anything about getting a new patient. Let me find a nurse." pt updated on delay for admission, pt stated understanding. will attempt to call report in 10 mins. Vital Signs: 03:22 BP 136 / 93; Pulse 86; Resp 18; Temp 98.2(O); Pulse Ox 97% on R/A; Weight 127.01 kg ak1 (R); Height 5 ft. 5 in. (165.10 cm) (R); Pain 5/10; 04:09 BP 145 / 93; Pulse 96; Resp 18; Pulse Ox 96% on R/A; ak1 05:25 BP 126 / 68; Pulse 83; Resp 14; Pulse Ox 97% on R/A; Pain 0/10; ak1 06:34 BP 139 / 84; Pulse 75; Resp 14; Pulse Ox 98% on R/A; Pain 0/10; ak1 07:57 BP 135 / 80; Pulse 77; Resp 14; Temp 98.2; Pulse Ox 99% on R/A; Pain 0/10; sg 03:22 Body Mass Index 46.59 (127.01 kg, 165.10 cm) ak1 ED Course: 03:19 Patient arrived in ED. ak1 03:21 Triage completed. ak1 03:22 Arm band placed on Patient placed in an exam room, on a stretcher, on engine monitor, ak1 on pulse oximetry, Patient notified of wait time. 03:23 Antonio Wang MD is Attending Physician. tw4 03:24 Patient has correct armband on for positive identification. Bed in low position. Call ak1 light in reach. Side rails up X 1. playground monitor on. Pulse ox on. NIBP on. Door closed. Lights dimmed. Warm blanket given. 03:25 Fiorella Groves, RN is Primary Nurse. ak1 03:25 Maintain EMS IV. Dressing intact. Site clean \\T\\ dry. Gauge \\T\\ site: 20g left AC. Patient ak 1 maintains SpO2 saturation greater than 95% on room air. 03:40 X-ray completed. Portable x-ray completed in exam room. Patient tolerated procedure kw well. 04:27 XRAY Chest (1 view) Sent. ak1 04:45 No provider procedures requiring assistance completed. ak1 06:06 XRAY Chest (1 view) In Process Unspecified. EDMS 06:45 Ethan Walter DO is Hospitalizing Provider. tw4 06:47 Patient admitted, IV remains in place. ak1 07:42 Assisted to bathroom. sg 07:42 Repeat lab(s) drawn. by me, sent to lab. Urine collected: clean catch specimen, clear, sg sent to lab. Administered Medications: No medications were administered Outcome: 06:38 Condition: stable ak1 06:38 Instructed on the need for admit. 06:46 Decision to Hospitalize by Provider. tw4 08:00 Admitted to Tele accompanied by [facility], via wheelchair, room 415, with chart, Report sg called to JAVIER Segura 08:00 Condition: stable 08:00 Instructed on the need for admit, safety practices, Demonstrated understanding of instructions. 08:05 Patient left the ED. rn Signatures: Dispatcher [employer] Robson Cunningham, Kenji Correa RN, MD MD rn Whitley, Kimberlee kw Krenek, Amber, RN RN ak Antonio Wang MD MD tw4
--- NOTE | 2017-10-30 06:46 | EDPHYS ---
Physician Documentation [facility] Name: Patricia Shoemaker Age: 62 yrs Sex: Female : 1955 Arrival Date: 10/30/2017 Time: 03:19 Bed 6 Private MD: ED Physician Antonio Wang HPI: 10/30 04:45 This 62 yrs old Black Female presents to ER via EMS with complaints of Chest Pain. tw4 04:45 The patient or guardian reports chest pain that is located primarily in the anterior tw4 chest wall, left. Onset: just prior to arrival, today. The pain radiates to left back. Associated signs and symptoms: The patient has no apparent associated signs or symptoms. The chest pain is described as a pressure. Duration: The patient or guardian reports a single episode, that is now resolved. Modifying factors: The symptoms are alleviated by nothing. the symptoms are aggravated by nothing. Severity of pain: At its worst the pain was moderate in the emergency department the pain is unchanged. The patient has not experienced similar symptoms in the past. Historical: - Allergies: 03:22 Sulfa (Sulfonamide Antibiotics); ak1 - Home Meds: 04:26 Spiriva with HandiHaler 18 mcg inhalation CpDv 1 cap once daily [Active]; venlafaxine ak1 150 mg oral cp24 1 cap once daily [Active]; Zyrtec 10 mg Oral cap [Active]; pantoprazole 40 mg oral TbEC 1 tab once daily [Active]; simvastatin 20 mg Oral tab 1 tab once daily [Active]; Lyrica 75mg Oral 1 cap 2 times per day [Active]; metformin 850 mg Oral tab 1 tab 2 times per day [Active]; losartan 100 mg oral tab 1 tab once daily [Active]; hydroxyzine pamoate 25 mg Oral cap PRN [Active]; montelukast 10 mg oral tab 1 tab once daily [Active]; Breo Ellipta 100-25 mcg/dose inhalation dsdv 1 puff once daily [Active]; ProAir HFA inhalation inhalation [Active]; Albuterol Nebulizer [Active]; - PMHx: 03:22 Diabetes - NIDDM; COPD; Hyperlipidemia; Hypertension; ak1 - PSHx: 03:22 Tubal ligation; BACK; colonoscopy; ak1 - Immunization history:: Adult Immunizations unknown. - Social history:: Smoking status: unknown. - Ebola Screening: : No symptoms or risks identified at this time. ROS: 04:45 Constitutional: Negative for fever, chills, and weight loss, Respiratory: Negative for tw4 shortness of breath, cough, wheezing, and pleuritic chest pain, Abdomen/GI: Negative for abdominal pain, nausea, vomiting, diarrhea, and constipation, Back: Negative for injury and pain, MS/Extremity: Negative for injury and deformity, Skin: Negative for injury, rash, and discoloration, Neuro: Negative for headache, weakness, numbness, tingling, and seizure. 04:45 Cardiovascular: Positive for chest pain, Negative for edema, orthopnea, palpitations, paroxysmal nocturnal dyspnea. Exam: 04:45 Constitutional: This is a well developed, well nourished patient who is awake, alert, tw4 and in no acute distress. Head/Face: Normocephalic, atraumatic. Chest/axilla: Normal chest wall appearance and motion. Nontender with no deformity. No lesions are appreciated. Cardiovascular: Regular rate and rhythm with a normal S1 and S2. No gallops, murmurs, or rubs. Normal PMI, no JVD. No pulse deficits. Respiratory: Lungs have equal breath sounds bilaterally, clear to auscultation and percussion. No rales, rhonchi or wheezes noted. No increased work of breathing, no retractions or nasal flaring. Abdomen/GI: Soft, non-tender, with normal bowel sounds. No distension or tympany. No guarding or rebound. No evidence of tenderness throughout. Back: No spinal tenderness. No costovertebral tenderness. Full range of motion. MS/ Extremity: Pulses equal, no cyanosis. Neurovascular intact. Full, normal range of motion. Neuro: Awake and alert, GCS 15, oriented to person, place, time, and situation. Cranial nerves II-XII grossly intact. Motor strength 5/5 in all extremities. Sensory grossly intact. Cerebellar exam normal. Normal gait. Vital Signs: 03:22 BP 136 / 93; Pulse 86; Resp 18; Temp 98.2(O); Pulse Ox 97% on R/A; Weight 127.01 kg ak1 (R); Height 5 ft. 5 in. (165.10 cm) (R); Pain 5/10; 04:09 BP 145 / 93; Pulse 96; Resp 18; Pulse Ox 96% on R/A; ak1 05:25 BP 126 / 68; Pulse 83; Resp 14; Pulse Ox 97% on R/A; Pain 0/10; ak1 06:34 BP 139 / 84; Pulse 75; Resp 14; Pulse Ox 98% on R/A; Pain 0/10; ak1 07:57 BP 135 / 80; Pulse 77; Resp 14; Temp 98.2; Pulse Ox 99% on R/A; Pain 0/10; sg 03:22 Body Mass Index 46.59 (127.01 kg, 165.10 cm) ak1 MDM: 03:23 Patient medically screened. tw4 04:45 Differential diagnosis: acute myocardial infarction, acute pericarditis, anxiety, tw4 coronary artery disease pulmonary embolus, unstable angina. Data reviewed: vital signs, nurses notes. 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 Test interpretation: by ED physician or midlevel provider: ECG. Counseling: I had a detailed discussion with the patient and/or guardian regarding: the historical points, exam findings, and any diagnostic results supporting the discharge/admit diagnosis. 10/30 03:23 Order name: Basic Metabolic Panel; Complete Time: 04:15 10/30 03:23 Order name: CBC with Diff; Complete Time: 04:15 10/30 03:23 Order name: Ckmb; Complete Time: 04:15 10/30 03:23 Order name: CPK; Complete Time: 04:15 10/30 03:23 Order name: LFT's; Complete Time: 04:15 10/30 03:23 Order name: Magnesium; Complete Time: 04:15 10/30 03:23 Order name: NT PRO-BNP; Complete Time: 04:15 10/30 03:23 Order name: PT-INR; Complete Time: 04:15 10/30 03:23 Order name: Ptt, Activated; Complete Time: 04:15 10/30 03:23 Order name: Troponin (emerg Dept Use Only); Complete Time: 04:15 10/30 03:23 Order name: XRAY Chest (1 view) tw10/30 07:16 Order name: Troponin (emerg Dept Use Only) 10/30 07:43 Order name: Urine Dipstick--Ancillary (enter results) 10/30 08:01 Order name: Urine Dipstick-Ancillary [facility] 10/30 03:23 Order name: EKG; Complete Time: 03:24 tw4 10/30 03:23 Order name: Cardiac monitoring; Complete Time: 03:25 tw4 10/30 03:23 Order name: EKG - Nurse/Tech; Complete Time: 03:33 tw4 10/30 03:23 Order name: IV Saline Lock; Complete Time: 03:34 tw4 10/30 03:23 Order name: Labs collected and sent; Complete Time: 03:34 tw4 10/30 03:23 Order name: O2 Per Protocol; Complete Time: 03:25 tw4 10/30 03:23 Order name: O2 Sat Monitoring; Complete Time: 03:25 tw4 10/30 03:23 Order name: Urine Dipstick-Ancillary (obtain specimen); Complete Time: 07:38 tw4 EC:45 Rate is 80 beats/min. Rhythm is regular. QRS [place] is Normal. GA interval is normal. QRS tw4 interval is normal. QT interval is normal. No Q waves. T waves are Normal. No ST changes noted. Clinical impression: Normal ECG. Interpreted by me. Reviewed by me. Administered Medications: No medications were administered Disposition: 10/30/17 06:46 Hospitalization ordered by Ethan Walter for Observation. Preliminary diagnosis is Chest pain, unspecified. - Bed requested for Telemetry/MedSurg (observation). - Status is Observation. rn - Condition is Stable. - Problem is new. - Symptoms have improved. UTI on Admission? No Signatures: Dispatcher [employer] EDWA AvelinaKaren ortega Kenji Mclaughlin MD MD rn Krenek, Amber, RN RN ak1 Antonio Wang MD MD tw4 Corrections: (The following items were deleted from the chart) 07:16 06:46 Hospitalization Ordered by Ethan Walter DO for Observation. Preliminary bd diagnosis is Chest pain, unspecified. Bed requested for Telemetry/MedSurg (observation). Status is Observation. Condition is Stable. Problem is new. Symptoms have improved. UTI on Admission? No. tw4 08:05 07:16 10/30/2017 06:46 Hospitalization Ordered by Ethan Walter DO for Observation. rn Preliminary diagnosis is Chest pain, unspecified. Bed requested for Telemetry/MedSurg (observation). Status is Observation. Condition is Stable. Problem is new. Symptoms have improved. UTI on Admission? No. bd
[2017-10-30] MEDS ORDERED: IPRATROPIUM BROM 0.5MG/2.5ML NEB PRN (06:50)
[2017-10-30] MEDS ORDERED: ALBUTEROL 2.5 MG/3 ML NEB SOL NEB PRN (06:50)
[2017-10-30] MEDS ORDERED: NITROGLYCERIN 0.4 MG/TAB SL PRN (06:50)
[2017-10-30] MEDS ORDERED: ACETAMINOPHEN 500 MG TAB PO PRN (06:50)
[2017-10-30] MEDS ORDERED: ONDANSETRON 4 MG/2 ML VIAL IV PRN (06:50)
[2017-10-30] MEDS ORDERED: NA CHLORIDE 0.9% 1,000 ML IV SCH (07:00)
[2017-10-30] MEDS ORDERED: PANTOPRAZOLE 40MG TABLET PO SCH (07:00)
[2017-10-30] MEDS: INSULIN -REGULAR HUMAN 50 UNIT/0.5 ML ML SQ SCH ×2 (07:30→11:30)
[2017-10-30 08:00] LABS: Urine Blood 1+ (NEG); Urine Glucose TRACE (NEG); Urine Protein NEGATIVE (NEG); Urine Specific Gravity 1.025 (1.005-1.030); Urine pH 5.5 (5.0-7.0)
[2017-10-30] MEDS ORDERED: ARFORMOTEROL TARTRATE 15 MCG/2 ML VIAL.NEB NEB SCH (08:00)
--- NOTE | 2017-10-30 08:30 | RAD REPORT ---
EXAM DESCRIPTION: Lester Single View10/30/2017 6:05 am CLINICAL HISTORY: Chest pain COMPARISON: September 2017 FINDINGS: The lungs appear clear of acute infiltrate. The heart is normal size. Aorta is tortuous/e ctatic IMPRESSION: No acute abnormalities displayed
[2017-10-30] MEDS ORDERED: ENOXAPARIN 40 MG/0.4 ML SQ SCH (09:00)
[2017-10-30] MEDS ORDERED: NICOTINE 21 MG/PAT TD SCH (09:00)
[2017-10-30] MEDS ORDERED: PREGABALIN 75 MG CAP PO SCH (09:00)
[2017-10-30] MEDS ORDERED: VENLAFAXINE HCL XR 75 MG CAP PO SCH (09:00)
[2017-10-30] MEDS ORDERED: ASPIRIN EC 81 MG TAB PO SCH (09:00)
[2017-10-30] MEDS ORDERED: LOSARTAN POTASSIUM 50 MG TABLET PO SCH ×2 (09:00→17:00)
[2017-10-30 11:16] VITALS: BMI 31.6
--- NOTE | 2017-10-30 11:54 | P.HP ---
Certification for Inpatient Patient admitted to: Observation With expected LOS: <2 Midnights Patient will require the following post-hospital care: None Practitioner: I am a practitioner with admitting privileges, knowledge of patient current condition, hospital course, and medical plan of care. Services: Services provided to patient in accordance with Admission requirements found in Title 42 Section 412.3 of the Code of Federal Regulations Patient History Date of Service: 10/30/17 Primary Care Provider: Dr. Landeros Reason for admission: Chest pain History of Present Illness: 62-year-old female present urgency room with chest pain. Chest pain mainly to the substernal region and to the left side. Pain would radiate to the left shoulder. It was associated with shortness of breath, nausea and vomiting. No palpitations noted. Patient had reported some epigastric pain prior. Patient with multiple medical problems including diabetes, diabetic and neuropathy, hypertension, depression, hyperlipidemia, COPD, tobacco abuse. In the ER patient was evaluated. Blood pressure 139/84, heart rate 87. Initial cardiac enzymes unremarkable. EKG showed no significant ST changes. Sodium 142 , potassium 3.5, blood sugar 211. Patient was admitted for observation and further evaluation. When I saw the patient the ER, she had reported no chest pain. Patient appears compliant with medication. Patient smokes but is down to a half a pack a day. Allergies Sulfa (Sulfonamide Antibiotics) [Sulfa(Sulfonamide Antibiotics)] Allergy ( Intermediate, Verified 09/28/17 13:05) Itching SULFA (SULFONAMIDES) Allergy (Uncoded 09/28/17 13:05) Unknown Home medications list reviewed: Yes Home Medications: Losartan Potassium 100 mg PO DAILY 09/28/17 Metformin HCl 850 mg PO BID 09/28/17 Montelukast Sodium 10 mg PO DAILY 09/28/17 Pregabalin [Lyrica] 75 mg PO BID 09/28/17 Tiotropium [Spiriva Handihaler] 18 mcg IH DAILY 09/28/17 Venlafaxine HCl *Xr* [Effexor XR] 150 mg PO DAILY 09/28/17 Fluticasone/Vilanterol [Breo Ellipta 100-25 Mcg INH] 1 puff IH DAILY 10/30/17 Montelukast Sodium [Singulair] 10 mg PO DAILY 10/30/17 Pantoprazole Sodium [Protonix] 40 mg PO DAILY 10/30/17 hydrOXYzine pamoate [Hydroxyzine Pamoate] 25 mg PO DAILY PRN 10/30/17 - Past Medical/Surgical History Has patient received pneumonia vaccine in the past: Yes Diabetic: Yes -: COPD -: HTN -: Hyperlipidemia -: Spinal stenosis -: Diabetes mellitus type 2 -: Diabetic neuropathy -: GERD -: Tobacco abuse -: History of colon polyps -: Tubal ligation -: Back surgery -: Colonoscopy Psychosocial/ Personal History: The patient is . She has 2 children. 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 - Family History Mother -: Hypertension, Lung disease Father -: Heart disease, Hypertension Brother -: Heart disease, Hypertension, Lung disease Sister -: Hypertension, Other (see notes) Notes: "thyroid problems - cannot recall the name" - Social History Smoking Status: Current every day smoker Counseled patient to stop smoking for: less than 10 minutes Smoking therapy provided: Yes Patient receptive to therapy: Yes Alcohol use: No CD- Drugs: No Caffeine use: Yes Place of Residence: Home Review of Systems General: As per HPI Eyes: Unremarkable ENT: Unremarkable Respiratory: Shortness of Breath, As per HPI Cardiovascular: Chest Pain, As per HPI Gastrointestinal: Nausea, Vomiting, As per HPI Genitourinary: Unremarkable Musculoskeletal: Unremarkable Integumentary: Unremarkable Neurological: Unremarkable Lymphatics: Unremarkable Physical Examination - Vital Signs Temperature: 98.2 F Blood Pressure: 135/80 Pulse: 77 Respirations: 14 - Physical Exam General: Alert, In no apparent distress, Oriented x3, Cooperative HEENT: Atraumatic, Normocephalic, PERRLA, Mucous membr. moist/pink Neck: Supple, No Thyromegaly Respiratory: Clear to auscultation bilaterally, Normal air movement Cardiovascular: Normal pulses, Regular rate/rhythm Gastrointestinal: Normal bowel sounds, Soft and benign, Non-distended, No tenderness, No masses, No rebound, No guarding Musculoskeletal: No erythema, No tenderness, No warmth Integumentary: No tenderness/swelling, No erythema, No warmth, No cyanosis Neurological: Normal speech, Normal strength at 5/5 x4 extr, Normal tone, Normal affect Lymphatics: No axilla or inguinal lymphadenopathy - Studies Laboratory Data (last 24 hrs) 10/30/17 03:30: PT 11.0, INR 0.93, APTT 31.3 10/30/17 03:30: WBC 7.1, Hgb 12.8, Hct 36.9, Plt Count 177 10/30/17 03:30: Sodium 142, Potassium 3.5, BUN 18, Creatinine 1.00, Glucose 211 H, Magnesium 1.8, Total Bilirubin 0.2, AST 11 L, ALT 21, Alkaline Phosphatase 76 Assessment and Plan - Plan Assessment: Chest pain Diabetes mellitus type 2, controlled Hypertension, controlled Hyperlipidemia COPD Tobacco abuse GERD Depression Plan: Patient will be admitted for observation. Will monitor cardiac enzymes and telemetry. Spoke with Cardiology. Await echo cardiogram results. Patient will have exercise stress test to further assess. If unremarkable the patient can be discharged home later today. If negative patient may require GI evaluation for possible EGD in the future. Will continue with her prior medications for diabetes, hypertension, GERD, and hyperlipidemia. Will also continue with her COPD medication. Await results. Discharge Plan: Home Plan to discharge in: 24 Hours - Advance Directives Does patient have a Living Will: No Does patient have a Durable POA for Healthcare: No - Code Status/Comfort Care Code Status Assessed: Yes (Patient full code) Time Spent Managing Pts Care (In Minutes): 55
[2017-10-30 12:25] LABS: CKMB Creatine Kinase MB < 1.0 ng/mL (0.3-3.6); Creatine Phosphokinase 95 U/L (26-192); Troponin I < 0.02 ng/mL (0.0-0.045)
--- NOTE | 2017-10-30 15:38 | EKG ---
Test Date: 2017-10-30 Test Time: 03:29:10 Raw Cheese Worker: MARINA MEASUREMENT RESULTS: Intervals: Rate: 80 [place]: 164 QRSD: 74 QT: 372 QTc: 429 [place]: P: 61 NJ: 164 QRS: 24 T: 51 INTERPRETIVE STATEMENTS: Normal sinus rhythm Normal ECG Compared to ECG 04/21/2013 21:20:28 No significant changes Electronically Signed On 10-30-17 15:34:55 CDT by Michael Lam
--- NOTE | 2017-10-30 15:57 | ECHO ---
HEIGHT: 5 ft 5 in WEIGHT: 25 lb 12.8 oz DATE OF STUDY: 10/30/[address]: Ethan Walter DO 2-DIMENSIONAL: YES M.MODE: YES DOPPLER: YES COLOR FLOW: YES TDS: PORTABLE: DEFINITY: BUBBLE STUDY: DIAGNOSIS: CHEST PAIN, HISTORY OF HYPERTENSION, DIABETES MELLITUS, CHRONIC OBSTRUCTIVE PULMONARY DISEASE. CARDIAC HISTORY: CATHERIZATION: NO SURGERY: NO PROSTHETIC VALVE: NO PACEMAKER: NO MEASUREMENTS (cm) DIASTOLIC (NORMALS) SYSTOLIC (NORMALS) IVSd 0.8 (0.6-1.2) LA Diam 2.7 (1.9-4.0) LVEF 70% LVIDd 3.5 (3.5-5.7) LVIDs 2.2 (2.0-3.5) %FS 39% LVPWd 1.0 (0.6-1.2) Ao Diam 2.7 (2.0-3.7) 2 DIMENSIONAL ASSESSMENT: RIGHT ATRIUM: NORMAL LEFT ATRIUM: NORMAL RIGHT VENTRICLE: NORMAL LEFT VENTRICLE: NORMAL TRICUSPID VALVE: NORMAL MITRAL VALVE: NORMAL PULMONIC VALVE: NORMAL AORTIC VALVE: NORMAL PERICARDIAL EFFUSION: NONE AORTIC ROOT: NORMAL LEFT VENTRICULAR WALL MOTION: NORMAL DOPPLER/COLOR FLOW: MILD TRICUSPID REGURGITATION. COMMENTS: MILD TRICUSPID REGURGITATION. NORMAL WALL MOTION. NORMAL LEFT VENTRICULAR SIZE AND FUNCTION. TECHNOLOGIST: COLLIN CHAVEZ
[2017-10-30 16:00] VITALS: O2SAT 98
--- NOTE | 2017-10-30 16:05 | TREADMILL ---
70% H.R.: 112 85% H.R.: 136 90% H.R.: 144 100% H.R.: 160 DX: CHEST PAIN Date of Study: 10/30/2017 Ht: 5 5 Wt: 25 lb 12.8 oz Consulting Physician: DEJA MEDICATIONS: TYLENOL, PROVNETIL, ASPIRIN, LIPITOR, LOVENOX, ATROVENT, COZAAR, NITROSTAT, ZOFRAN HISTORY: 62 YEAR OLD FEMALE WITH COMPLAINTS OF CHEST PAIN. MEDICAL HISTORY OF DIABETES MELLITUS, HYPERTENSION, COPD, HYPERLIPIDEMIA, CURRENT SMOKER. PHYSICIAL EXAMINATION: RESTING B.P.: 136/82 RESTING H.R.: 98 RESTING EKG: NORMAL PROTOCOL: ANN ROUTINE EXERCISE TIME: 3:00 MAXIMUM HEART RATE: 150 93 % OF PREDICTED B.P. AT PEAK STRESS: 163/82 H.R. AT 1 MINUTE POST EXERCISE: 125 IMPRESSION: ROUTINE STRESS STOPPED DUE TO TARGET HEART RATE BEING REACHED ON SHORTNESS OF BREATH PER PROTOCOL. NO SUPRAVENTRICULAR OR VENTRICULAR TACHYCARDIA. ONE PREMATURE VENTRICULAR COMPLEX POST STRESS. NEGATIVE STRESS TEST.
[2017-10-30] MEDS ORDERED: HOME MED 1 EA UNK (Hydroxyzine Pamoate [Hydroxyzine Pamoate] 25 MG) PO PRN (16:21)
--- NOTE | 2017-10-30 16:27 | P.DS ---
Admission Date: 10/30/17 Discharge Date: 10/30/17 Primary Care Provider: Dr. Landeros Disposition: ROUTINE DISCHARGE Discharge Condition: GOOD Reason for Admission: Chest pain Consultations: Cardiology-Dr. Lam Procedures: Exercise stress test: No stress-induced ischemia noted. Patient reached target heart rate. Echocardiogram: Normal ejection fraction Medical problem list: Chest pain, noncardiac. Normal exercise stress test. Normal echocardiogram. Diabetes mellitus type 2 controlled Hypertension Hyperlipidemia COPD Tobacco abuse GERD Depression Brief History of Present Illness: 62-year-old female present urgency room with chest pain. Chest pain mainly to the substernal region and to the left side. Pain would radiate to the left shoulder. It was associated with shortness of breath, nausea and vomiting. No palpitations noted. Patient had reported some epigastric pain prior. Patient with multiple medical problems including diabetes, diabetic and neuropathy, hypertension, depression, hyperlipidemia, COPD, tobacco abuse. In the ER patient was evaluated. Blood pressure 139/84, heart rate 87. Initial cardiac enzymes unremarkable. EKG showed no significant ST changes. Sodium 142 , potassium 3.5, blood sugar 211. Patient was admitted for observation and further evaluation. When I saw the patient the ER, she had reported no chest pain. Patient appears compliant with medication. Patient smokes but is down to a half a pack a day. Hospital Course: Patient presented with chest pain. Cardiac enzymes unremarkable. Patient evaluated by Cardiology. Patient had normal exercise stress test. Normal echocardiogram was also identified. Chest pain likely noncardiac. Suspect GERD related. Patient will continue with Protonix 40 mg 1 pill once daily. Recommendation is for the patient follow up with GI as an outpatient to further monitor. Patient may continue with aspirin 81 mg daily. Patient with history of hypertension, diabetes, COPD, depression with anxiety. Patient will continue with her medications. Vital Signs/Physical Exam: Temp Pulse Resp BP Pulse Ox 97.8 F 78 16 135/75 100 10/30/17 12:00 10/30/17 12:00 10/30/17 12:00 10/30/17 12:10/30/17 12:00 General: Alert, In no apparent distress, Oriented x3, Cooperative HEENT: Atraumatic Neck: Supple Respiratory: Clear to auscultation bilaterally, Normal air movement Cardiovascular: Normal pulses, Regular rate/rhythm Gastrointestinal: Normal bowel sounds, Soft and benign, Non-distended Musculoskeletal: No erythema, No tenderness, No warmth Integumentary: No tenderness/swelling, No erythema, No warmth, No cyanosis Neurological: Normal speech, Normal strength at 5/5 x4 extr, Normal tone, Normal affect Lymphatics: No axilla or inguinal lymphadenopathy Laboratory Data at Discharge: WBC 7.1 K/uL (4.3-10.9) 10/30/17 03:30 Hgb 12.8 g/dL (12.0-15.0) 10/30/17 03:30 Hct 36.9 % (36.0-45.0) 10/30/17 03:30 Plt Count 177 K/uL (152-406) 10/30/17 03:30 PT 11.0 SECONDS (9.5-12.5) 10/30/17 03:30 INR 0.93 10/30/17 03:30 APTT 31.3 SECONDS (24.3-36.9) 10/30/17 03:30 Sodium 142 mmol/L (136-145) 10/30/17 03:30 Potassium 3.5 mmol/L (3.5-5.1) 10/30/17 03:30 BUN 18 mg/dL (7-18) 10/30/17 03:30 Creatinine 1.00 mg/dL (0.55-1.3) 10/30/17 03:30 Glucose 211 mg/dL (74-106) H 10/30/17 03:30 Magnesium 1.8 mg/dL (1.8-2.4) 10/30/17 03:30 Total Bilirubin 0.2 mg/dL (0.2-1.0) 10/30/17 03:30 AST 11 U/L (15-37) L 10/30/17 03:30 ALT 21 U/L (12-78) 10/30/17 03:30 Alkaline Phosphatase 76 U/L (45-117) 10/30/17 03:30 Troponin I < 0.02 ng/mL (0.0-0.045) 10/30/17 11:40 Home Medications: Losartan Potassium 100 mg PO DAILY 09/28/17 Metformin HCl 850 mg PO BID 09/28/17 Montelukast Sodium 10 mg PO DAILY 09/28/17 Pregabalin [Lyrica] 75 mg PO BID 09/28/17 Tiotropium [Spiriva Handihaler] 18 mcg IH DAILY 09/28/17 Venlafaxine HCl *Xr* [Effexor XR] 150 mg PO DAILY 09/28/17 Fluticasone/Vilanterol [Breo Ellipta 100-25 Mcg INH] 1 puff IH DAILY 10/30/17 Montelukast Sodium [Singulair] 10 mg PO DAILY 10/30/17 Pantoprazole Sodium [Protonix] 40 mg PO DAILY 10/30/17 Simvastatin 20 mg PO DAILY 10/30/17 hydrOXYzine pamoate [Hydroxyzine Pamoate] 25 mg PO DAILY PRN 10/30/17 Patient Discharge Instructions: 1. Patient will need to follow up with a PCP in 1 week to follow up this hospitalization. 2. Patient presented with chest pain. Cardiac enzymes unremarkable. Patient evaluated by Cardiology. Patient had normal exercise stress test. Normal echocardiogram was also identified. Chest pain likely noncardiac. Suspect GERD related. Patient will continue with Protonix 40 mg 1 pill once daily. Recommendation is for the patient follow up with GI as an outpatient to further monitor. Patient may continue with aspirin 81 mg daily. 3. Patient with history of hypertension, diabetes, COPD, depression with anxiety. Patient will continue with her medications. Diet: AHA Activity: Ad diann Time spent managing pt's care (in minutes): 55
[2017-10-30] MEDS ORDERED: hydrOXYzine HCl 25 MG TAB PO PRN ×2 (16:29→17:00)
[2017-10-30 17:29] VITALS: BP 163/80; TEMP 97.9
[2017-10-30] MEDS ORDERED: MONTELUKAST 10 MG TAB PO SCH (21:00)
[2017-10-30] MEDS ORDERED: ATORVASTATIN 10 MG TAB PO SCH ×2 (21:00)
[2017-10-30] MEDS ORDERED: METFORMIN HCL 850 MG TAB PO SCH (21:00)
[2017-10-31] MEDS ORDERED: HOME MED 1 EA UNK (Fluticasone/Vilanterol [Breo Ellipta 100-25 Mcg Inh] 1 PUFF) IH SCH (09:00)
[2017-10-31] MEDS ORDERED: HOME MED 1 EA UNK (Simvastatin [Simvastatin] 20 MG) PO SCH (09:00)
[2017-10-31] MEDS ORDERED: HOME MED 1 EA UNK (Losartan Potassium [Losartan Potassium] 100 MG) PO SCH (09:00)
[2017-10-31] MEDS ORDERED: TIOTROPIUM 5 SPRAYS/INHALER IH SCH (09:00)
== END 2017-10-30 17:48 | disposition home or self-care (01) ==
LOC: ER 03:16 → ERHOLD 06:46 → 4TH 07:58
PROVIDERS: ADMIT Family Medicine; ATTEND Family Medicine
DX: R07.9 Chest pain, unspecified (principal); E11.9 Type 2 diabetes mellitus without complications; I10 Essential (primary) hypertension; E78.5 Hyperlipidemia, unspecified; J44.9 Chronic obstructive pulmonary disease, unspecified; K21.9 Gastro-esophageal reflux disease without esophagitis; F32.9 Major depressive disorder, single episode, unspecified; F17.210 Nicotine dependence, cigarettes, uncomplicated; Z88.2 Allergy status to sulfonamides
CPT/HCPCS: 36415; 71045; 80048; 80076; 81003; 82550; 82553; 82962; 83735; 83880; 84484; 85025; 85610; 85730; 93005; 93017; 93306; 99285; G0378; J1650; J7030; J7605

== ENCOUNTER 2018-01-29 07:10 | Day surgery (SDC) | payer OTHER ==
[2018-01-29] MEDS ORDERED: NA CHLORIDE 0.9% 1,000 ML ONE (08:03)
[2018-01-29] MEDS ORDERED: PROPOFOL 200 MG/20 ML VIAL IV ONE ×2 (08:12→08:15)
[2018-01-29] MEDS ORDERED: LIDOCAINE 1% MPF 5 ML VIAL ONE (08:14)
--- OUTSIDE RECORDS SUMMARY | 2018-01-29 08:51 | XMS REPORT | Continuity of Care Document ---
[...] Number For Provider Date Date Visit Outpatient [id number] ZACK 07/12 [facility] [place] Outpatient [id number] ZACK 08/18 [facility] [place] Procedures Procedure Code Date Perfomer Comments Source
--- OUTSIDE RECORDS SUMMARY | 2018-01-29 08:51 | XMS REPORT | Clinical Summary ---
:1955 Author Organization [facility] Address [address] [place] [address] Care Team Providers Name Role Phone Sharpjessica Primary Care Provider Allergies Active Allergy Reactions Severity Noted Date Comments Sulfa (Sulfonamide Antibiotics) Rash Low 05/06/2014 Medications Medication Sig Dispensed Refills Start Date End Date Status simvastatin (ZOCOR) Take 20 mg by mouth 0 Active 20 MG tablet nightly. metFORMIN Take 850 mg by mouth 0 Active (GLUCOPHAGE) 850 MG 2 (two) times daily tablet with breakfast and dinner. gabapentin Take 300 mg by mouth 0 Active (NEURONTIN) 300 MG 3 (three) times capsule daily. levofloxacin Take 750 mg by mouth 0 Active (LEVAQUIN) 750 MG daily. tablet budesonide-formotero Inhale 2 puffs by 0 Active l (SYMBICORT) 80-4.5 mouth via inhaler 2 mcg/actuation (two) times daily. inhaler albuterol HFA Inhale 1 puff by 0 Active (VENTOLIN HFA) 90 mouth via inhaler mcg/actuation every 6 (six) hours inhaler as needed for Wheezing. venlafaxine Take 75 mg by mouth 0 Active (EFFEXOR) 75 MG 2 (two) times daily. tablet lisinopril Take 5 mg by mouth 0 Active (PRINIVIL,ZESTRIL) 5 daily. MG tablet ipratropium Take 500 mcg by 0 Active (ATROVENT) 0.02 % nebulization 4 nebulizer solution (four) times daily. albuterol Take 2.5 mg by 0 Active (PROVENTIL) 2.5 nebulization. mg/0.5 mL Nebu nebulizer solution albuterol HFA 2 puffs q 4 hrs for 1 Inhaler 0 05/07/2014 Active (PROAIR HFA) 90 two days, then prn mcg/actuation inhaler Active Problems Problem Noted Date COPD exacerbation 05/06/2014 Social History Tobacco Use Types Packs/Day Years Used Date Current Every Day Smoker Cigarettes 0.5 Alcohol Use Drinks/Week oz/Week Comments No Sex Assigned at Date Recorded Not on file Job Start Date Occupation Industry Not on file Not on file Not on file Travel History Travel Start Travel End No recent travel history available. Last Filed Vital Signs Not on file Plan of Treatment Not on file Results Not on fileafter 01/28/2017 Insurance Payer Benefit Plan / Group Subscriber ID Type Phone Address [facility] EXCHANGE xxxxxxxxx
--- OUTSIDE RECORDS SUMMARY | 2018-01-29 08:52 | XMS REPORT ---
[...] Active one directed 2017 Breo Ellipta ND 60784628695 100-25 MCG/INH Sep 20, Active 1 puff Inhalation Once 2017 a day Prometrium ND 58045326872 100 MG Orally Active 2 capsules Once a day at bedtime Cozaar ND 58938347567 100 MG Active 1 EACH ONCE A DAY ORALLY Effexor XR ND 65307955634 150 MG Orally Active 1 capsule Once a day with food blood glucose NDC 0 n/s n/s twice a MayAugust 16, Active one test strip day 2017 Lyrica ND 07019885873 75 MG Orally Active 1 capsule 1 Twice a day to 3 hours before bedtime in the evening Albuterol ND 22601446584 (5 MG/ML) 0.5% Active 1 ml as Sulfate Inhalation needed every 6 hrs Augmentin [facility] 40463751813 875-125 MG May Active 1 tablet Orally every 12 2017 hrs Chantix ND 10341148268 1 MG Orally MaySep 20, Active 1 tablet Continuing Twice a day 2017 Month Quinten Vitamin D3 ND 80309582925 50,000 PO once Active one tab a week Duexis [facility] 52242563844 800-26.6 MG Active 1 tablet Orally Three times a day Spiriva ND 99209091416 18 MCG Active 1 capsule HandiHaler Inhalation Once a day Metformin HCl ND 76683756157 850 MG Active 1 EACH 3 TIMES A DAY ORALLY Chantix [facility] 77983326733 0.5 MG X 11 & 1 Active not defined Starting Month MG X 42 Orally Quinten Simvastatin ND 96166917183 10 MG Orally Active 1 tablet in Once a day the evening ProAir HFA ND 33569035781 108 (90 Base) Active 2 puffs as MCG/ACT needed Inhalation every 6 hrs Lancets Super NDC 0 n/s finger May Active one Thin stick once 2017 HydrOXYzine ND 37317375402 25 MG Orally Active 1 capsule Pamoate every 8 hrs as needed Results No Known Results Summary Purpose eClinicalWorks Submission
--- OUTSIDE RECORDS SUMMARY | 2018-01-29 08:52 | XMS REPORT ---
[...] Date Status Dosage System Date Gabapentin ND 52429616704 300 MG Orally June 12, Active 1 capsule Twice a day 2018 before bedtime Lyrica ND 94488349118 75 MG Orally Inactive 1 capsule Twice a day 1 to 3 hours before bedtime in the evening Results No Known Results Summary Purpose eClinicalWorks Submission
--- OUTSIDE RECORDS SUMMARY | 2018-01-29 08:52 | XMS REPORT ---
[...] End Status Dosage System Date Date Albuterol [facility] 68994264731 (5 MG/ML) 0.5% Active 1 ml as Sulfate Inhalation needed every 6 hrs Chantix ND 36273172219 0.5 MG X 11 & 1 Active not defined Starting Month MG X 42 Orally Quinten Vitamin D3 ND 92261130492 50,000 PO once Active one tab a week Alcohol Prep NDC 0 twice a day May Active as directed Pads 2017 Gabapentin ND 16792225425 300 MG Orally June 12, Active 1 capsule Twice a day 2017 before bedtime Chantix ND 80915078015 1 MG Orally Active 1 tablet Continuing Twice a day Month Quinten Lyrica [facility] 17394990988 75 MG Orally Active 1 capsule 1 Twice a day to 3 hours before bedtime in the evening HydrOXYzine [facility] 03015543610 25 MG Orally Active 1 capsule Pamoate every 8 hrs as needed ProAir HFA [facility] 69905900550 108 (90 Base) Active 2 puffs as MCG/ACT needed Inhalation every 6 hrs Simvastatin [facility] 04423398337 10 MG Orally Active 1 tablet in Once a day the evening Montelukast ND 85319086529 10 MG Orally August 21, Active 1 tablet in Sodium Once a day 2017 the evening Nasonex ND 01840749679 50 MCG/ACT August 21, Active 2 sprays in Nasally Once a 2017 each day nostril Cozaar [facility] 67135143160 100 MG Active 1 EACH ONCE A DAY ORALLY Effexor XR [facility] 96959689308 150 MG Orally Active 1 capsule Once a day with food Prometrium [facility] 64673921527 100 MG Orally Active 2 capsules Once a day at bedtime Duexis [facility] 43880481754 800-26.6 MG Active 1 tablet Orally Three times a day Spiriva [facility] 48679835745 18 MCG Active 1 capsule HandiHaler Inhalation Once a day Metformin HCl [facility] 23605424392 850 MG Active 1 EACH 2 TIMES A DAY ORALLY Lancets Super NDC 0 n/s finger May Active one Thin stick once 2017 blood glucose NDC 0 n/s n/s twice a May Active one test strip day 2017 Breo Ellipta [facility] 86740960996 100-25 MCG/INH Active 1 puff Inhalation Once a day Results Name Result Date Reference Range Unit Abnormality Flag URINALYSIS AUTO W/O SCOPE (55229) ----EDWARDO neg [id number] ----NIT neg [id number] ----PROTEIN neg [id number] ----pH 6.0 20170912 ----BLO 1+ [id number] ----GLUCOSE neg [id number] ----BILIRUBIN neg [id number] ----KETONES neg [id number] ----SPECIFIC GRAVITY <+1.005 [id number] Summary Purpose eClinicalWorks Submission
--- OUTSIDE RECORDS SUMMARY | 2018-01-29 08:52 | XMS REPORT ---
[...] Problem Hyperlipidemia E78.5 Active Medications Medication Code System Code Instructions Start End Date Status Dosage Date Ipratropium-Alb [facility] 95209387654 0.5-2.5 (3) Active 3 ml uterol MG/3ML Inhalation every 6 hrs Results No Known Results Summary Purpose eClinicalWorks Submission
--- OUTSIDE RECORDS SUMMARY | 2018-01-29 08:52 | XMS REPORT ---
[...] End Status Dosage System Date Date Duexis [facility] 26416121424 800-26.6 MG Active 1 tablet Orally Three times a day Cozaar [facility] 50698032756 100 MG Active 1 EACH ONCE A DAY ORALLY HydrOXYzine ND 44454673897 25 MG Orally Active 1 capsule Pamoate every 8 hrs as needed Gabapentin ND 33639907273 300 MG Orally June 12, Active 1 capsule Twice a day 2018 before bedtime ProAir HFA [facility] 64905468004 108 (90 Base) Active 2 puffs as MCG/ACT needed Inhalation every 6 hrs Vitamin D3 [facility] 91978475254 50,000 PO once Active one tab a week Lancets Super NDC 0 n/s finger May Active one Thin stick once 2017 Chantix ND 39193218320 0.5 MG X 11 & 1 Active not defined Starting Month MG X 42 Orally Quinten Glucometer NDC 0 n/s n/s use as May Active one directed 2017 blood glucose NDC 0 n/s n/s twice a May Active one test strip day 2017 Breo Ellipta ND 83922613537 100-25 MCG/INH Sep 20, Active 1 puff Inhalation Once 2017 a day Spiriva ND 76632137811 18 MCG Active 1 capsule HandiHaler Inhalation Once a day Albuterol ND 50587568988 (5 MG/ML) 0.5% Active 1 ml as Sulfate Inhalation needed every 6 hrs Prometrium ND 32092945659 100 MG Orally Active 2 capsules Once a day at bedtime Chantix ND 19536200577 1 MG Orally MaySep 20, Active 1 tablet Continuing Twice a day 2017 Month Quinten Alcohol Prep NDC 0 twice a day May Active as directed Pads 2017 Effexor XR ND 39760436897 150 MG Orally Active 1 capsule Once a day with food Simvastatin ND 66446372745 10 MG Orally Active 1 tablet in Once a day the evening Metformin HCl ND 22241464249 850 MG Active 1 EACH 3 TIMES A DAY ORALLY Results Name Result Date Reference Range Unit Abnormality Flag URINALYSIS AUTO W/O SCOPE ([id number]) ----EDWARDO neg [id number] ----NIT neg [id number] ----PROTEIN neg [id number] ----pH 5.0 20170613 ----GLUCOSE neg [id number] ----KETONES neg [id number] ----SPECIFIC GRAVITY 1.020 20170613 ----BLO 2+ [id number] PVR ----PVR 12 [id number] Summary Purpose eClinicalWorks Submission
--- OUTSIDE RECORDS SUMMARY | 2018-01-29 08:52 | XMS REPORT ---
[...] Active as directed Pads 2017 Gabapentin NDC 06712479509 300 MG Orally June 12, Active 1 capsule Twice a day 2017 before bedtime HydrOXYzine ND 73029310863 25 MG Orally Active 1 capsule Pamoate every 8 hrs as needed Duexis [facility] 84620076325 800-26.6 MG Active 1 tablet Orally Three times a day Nasonex ND 63546877684 50 MCG/ACT August 21, Active 2 sprays in Nasally Once a 2017 each day nostril Azithromycin ND 47090321079 500 MG Orally Oct 08Oct Active one tablet Once a day 2017 Ipratropium-Albu ND 54888361524 0.5-2.5 (3) Oct 08, Active 3 ml terol MG/3ML 2018 Inhalation every 6 hrs Lancets Super ND 0 n/s finger May Active one Thin stick once 2017 Albuterol ND 30669435559 (5 MG/ML) 0.5% Active 1 ml as Sulfate Inhalation needed every 6 hrs Simvastatin ND 40451575446 10 MG Orally Active 1 tablet in Once a day the evening Breo Ellipta ND 88352298364 100-25 MCG/INH Active 1 puff Inhalation Once a day ProAir HFA [facility] 11109065011 108 (90 Base) Active 2 puffs as MCG/ACT needed Inhalation every 6 hrs PredniSONE ND 79806172784 20 MG Orally Oct 08Oct Active 1 tablet Twice a day for 2017 06, 5 days and then 2017 daily for 5 days Doxycycline ND 21751779628 100 MG Orally Oct 08Oct Active 1 tablet Hyclate Twice a day 2017 blood glucose [facility] 0 n/s n/s twice a May Active one test strip day 2017 Chantix Starting [facility] 65412796863 0.5 MG X 11 & 1 Active not defined Month Quinten MG X 42 Orally Metformin HCl [facility] 69701667820 850 MG Active 1 EACH 2 TIMES A DAY ORALLY Prometrium ND 86439180010 100 MG Orally Active 2 capsules Once a day at bedtime Vitamin D3 ND 72950838926 50,000 PO once Active one tab a week Lyrica ND 50299542194 75 MG Orally Active 1 capsule 1 Twice a day to 3 hours before bedtime in the evening Cozaar ND 71791004621 100 MG Active 1 EACH ONCE A DAY ORALLY Chantix ND 92807979837 1 MG Orally Active 1 tablet Continuing Month Twice a day Quinten Spiriva ND 55385700617 18 MCG Active 1 capsule HandiHaler Inhalation Once a day Effexor XR [facility] 23328722189 150 MG Orally Active 1 capsule Once a day with food Montelukast [facility] 44619028922 10 MG Orally August 21, Active 1 tablet in Sodium Once a day 2017 the evening Results No Known Results Summary Purpose eClinicalWorks Submission
--- OUTSIDE RECORDS SUMMARY | 2018-01-29 08:52 | XMS REPORT ---
[...] Dosage System Date Date Vitamin D3 NDC 80742218287 50,000 PO once Active one tab a week Metformin HCl ND 94391408736 850 MG Active 1 EACH 2 TIMES A DAY ORALLY Glucometer ND 0 n/s n/s use as May Active one directed 2017 Effexor XR ND 33808340385 150 MG Orally Active 1 capsule Once a day with food Alcohol Prep NDC 0 twice a day May Active as directed Pads 2017 Chantix ND 87342133644 1 MG Orally Active 1 tablet Continuing Twice a day Month Quinten Spiriva [facility] 84750154120 18 MCG Active 1 capsule HandiHaler Inhalation Once a day Duexis [facility] 79234735510 800-26.6 MG Active 1 tablet Orally Three times a day blood glucose ND 0 n/s n/s twice a May Active one test strip day 2017 Prometrium ND 94613773640 100 MG Orally Active 2 capsules Once a day at bedtime Gabapentin ND 71416639472 300 MG Orally June 12, Active 1 capsule Twice a day 2017 before bedtime Montelukast ND 87205945988 10 MG Orally August 21, Active 1 tablet in Sodium Once a day 2017 the evening Nasonex ND 98647241949 50 MCG/ACT August 21, Active 2 sprays in Nasally Once a 2017 each day nostril Cozaar [facility] 01173387794 100 MG Active 1 EACH ONCE A DAY ORALLY Lyrica ND 68399751262 75 MG Orally Active 1 capsule 1 Twice a day to 3 hours before bedtime in the evening HydrOXYzine ND 10443082425 25 MG Orally Active 1 capsule Pamoate every 8 hrs as needed Chantix [facility] 39308245156 0.5 MG X 11 & 1 Active not defined Starting Month MG X 42 Orally Quinten ProAir HFA [facility] 75046160856 108 (90 Base) Active 2 puffs as MCG/ACT needed Inhalation every 6 hrs Albuterol ND 84665183412 (5 MG/ML) 0.5% Active 1 ml as Sulfate Inhalation needed every 6 hrs Lancets Super ND 0 n/s finger May Active one Thin stick once 2017 Simvastatin ND 86985243438 10 MG Orally Active 1 tablet in Once a day the evening Breo Ellipta ND 58398613154 100-25 MCG/INH Active 1 puff Inhalation Once a day Results No Known Results Summary Purpose eClinicalWorks Submission
--- OUTSIDE RECORDS SUMMARY | 2018-01-29 08:53 | XMS REPORT ---
:1955 Author Organization eClinicalWorks Care Team Providers Name Role Phone Landeros, Na Provider Role Unavailable Allergies No Known Allergies Problems Problem Type Condition Code Onset Dates Condition Status Assessment COPD (chronic obstructive pulmonary J44.9 Active disease) Assessment Allergic rhinitis J30.9 Active Problem Degeneration of lumbar or M51.37 Active lumbosacral intervertebral disc Problem Depression with anxiety F41.8 Active Problem Urinary incontinence R32 Active Problem Dermatitis L30.9 Active Problem Insomnia G47.00 Active Problem Unspecified Escherichia coli [E. B96.20 Active coli] as the cause of diseases classified elsewhere Problem Vitamin D deficiency E55.9 Active Problem Diabetic neuropathy, painful E11.40 Active Problem COPD (chronic obstructive pulmonary J44.9 Active disease) Problem Urinary tract infection, site not N39.0 Active specified Problem Stress incontinence N39.3 Active Problem Rectal bleeding K62.5 Active Problem Diarrhea due to drug K52.1 Active Problem Gastroesophageal reflux disease K21.9 Active without esophagitis Problem Hyperlipidemia E78.5 Active Problem Allergic rhinitis J30.9 Active Problem Hospital discharge follow-up Z09 Active Problem Hypertension I10 Active Problem COPD with acute lower respiratory J44.0 Active infection Problem SOB (shortness of breath) on R06.02 Active exertion Problem Other obesity due to excess E66.09 Active calories Problem Body mass index (BMI) of 31.0-31.9 Z68.31 Active in adult Problem Type 2 diabetes E11.9 Active Problem Microscopic hematuria R31.2 Active Problem Glaucoma H40.9 Active Problem Snoring R06.83 Active Problem History of colon polyps Z86.010 Active Problem Encounter for screening colonoscopy Z12.11 Active Problem ASCUS of cervix with negative high R87.610 Active risk HPV Problem Nicotine dependence F17.200 Active Medications Medication Code Code Instructions Start End Date Status Dosage System Date Montelukast [facility] 76837141245 10 MG Orally August 21, Active 1 tablet Sodium Once a day 2017 in the evening Breo Ellipta [facility] 80681511484 100-25 MCG/INH May Active 1 puff Inhalation Once 03, 2019 a day Results No Known Results Summary Purpose eClinicalWorks Submission
--- OUTSIDE RECORDS SUMMARY | 2018-01-29 08:53 | XMS REPORT ---
:1955 Author Organization eClinicalWorks Care Team Providers Name Role Phone Landeros, Na Provider Role Unavailable Allergies No Known Allergies Problems Problem Type Condition Code Onset Dates Condition Status Assessment Hypertension I10 Active Assessment Depression with anxiety F41.8 Active Assessment Hyperlipidemia E78.5 Active Assessment Allergic rhinitis J30.9 Active Assessment COPD (chronic obstructive pulmonary J44.9 Active disease) Problem Degeneration of lumbar or M51.37 Active lumbosacral intervertebral disc Problem Microscopic hematuria R31.2 Active Problem Depression with anxiety F41.8 Active Problem ASCUS of cervix with negative high R87.610 Active risk HPV Problem Urinary incontinence R32 Active Problem History of colon polyps Z86.010 Active Problem Unspecified Escherichia coli [E. B96.20 Active coli] as the cause of diseases classified elsewhere Problem Encounter for screening colonoscopy Z12.11 Active Problem COPD with acute lower respiratory J44.0 Active infection Problem SOB (shortness of breath) on R06.02 Active exertion Problem Insomnia G47.00 Active Problem Dermatitis L30.9 Active Problem Gastroesophageal reflux disease K21.9 Active without esophagitis Problem Nicotine dependence F17.200 Active Problem Urinary tract infection, site not N39.0 Active specified Problem Diabetic neuropathy, painful E11.40 Active Problem Stress incontinence N39.3 Active Problem Rectal bleeding K62.5 Active Problem Hypertension I10 Active Problem Allergic rhinitis J30.9 Active Problem Vitamin D deficiency E55.9 Active Problem COPD (chronic obstructive pulmonary J44.9 Active disease) Problem Snoring R06.83 Active Problem Type 2 diabetes E11.9 Active Problem Hyperlipidemia E78.5 Active Problem Glaucoma H40.9 Active Medications Medication Code Code Instructions Start End Date Status Dosage System Date Spiriva [facility] 36807471369 18 MCG May Active 1 capsule HandiHaler Inhalation Once 2018 a day Montelukast ND 77058906051 10 MG Orally August 21, Active 1 tablet Sodium Once a day 2018 in the evening Effexor XR ND 86284425833 150 MG Orally Active 1 capsule Once a day with food Cozaar ND 79371346286 100 MG Orally Active 1 EACH Once a day ONCE A DAY ORALLY Breo Ellipta [facility] 37308069214 100-25 MCG/INH May Active 1 puff Inhalation Once 2018 a day Simvastatin [facility] 52338792462 10 MG Orally Active 1 tablet Once a day in the evening Results No Known Results Summary Purpose eClinicalWorks Submission
--- OUTSIDE RECORDS SUMMARY | 2018-01-29 08:53 | XMS REPORT ---
:1955 Author Organization eClinicalWorks Care Team Providers Name Role Phone Landeros, Na Provider Role Unavailable Allergies, Adverse Reactions, Alerts Substance Reaction Event Type Sulfamethoxazole itch Drug Allergy Ciprofloxacin itch Drug Allergy Problems Problem Type Condition Code Onset Dates Condition Status Assessment Type 2 diabetes E11.9 Active Assessment COPD (chronic obstructive pulmonary J44.9 Active disease) Assessment Hospital discharge follow-up Z09 Active Problem Degeneration of lumbar or M51.37 [...] Active Problem Allergic rhinitis J30.9 Active Assessment Other obesity due to excess E66.09 Active calories Problem Hospital discharge follow-up Z09 Active Problem Hypertension I10 Active Assessment Body mass index (BMI) of 31.0-31.9 Z68.31 Active in adult Problem COPD with acute lower respiratory J44.0 Active infection Problem SOB (shortness of breath) on R06.02 Active exertion Problem Other obesity due to excess E66.09 Active calories Problem Body mass index (BMI) of 31.0-31.9 Z68.31 Active in adult Assessment Hyperlipidemia E78.5 Active Problem Type 2 diabetes E11.9 Active Assessment Hypertension I10 Active Problem Microscopic hematuria R31.2 Active Assessment Gastroesophageal reflux disease K21.9 Active without esophagitis Problem Glaucoma H40.9 Active Assessment Diarrhea due to drug K52.1 Active Problem Snoring R06.83 Active Assessment Nicotine dependence F17.200 Active Problem History of colon polyps Z86.010 Active Assessment Tobacco abuse counseling Z71.6 Active Problem Encounter for screening colonoscopy Z12.11 Active Problem ASCUS of cervix with negative high R87.610 Active risk HPV Problem Nicotine dependence F17.200 Active Medications Medication Code Code Instructions Start End Status Dosage System Date Date Gabapentin ND 44377099875 300 MG Orally June 12, Active 1 capsule Twice a day 2017 before bedtime Alcohol Prep ND 0 twice a day May Active as directed Pads 2017 Lyrica ND 00901966038 75 MG Orally Active 1 capsule 1 Twice a day to 3 hours before bedtime in the evening Effexor XR [facility] 31524589777 150 MG Orally Active 1 capsule Once a day with food ProAir HFA [facility] 47352376730 108 (90 Base) Active 2 puffs as MCG/ACT needed Inhalation every 6 hrs Metformin HCl [facility] 75607338053 850 MG Inactive 1 EACH 2 TIMES A DAY ORALLY Duexis [facility] 22210719894 800-26.6 MG Active 1 tablet Orally Three times a day Albuterol [facility] 22407963853 (5 MG/ML) 0.5% Active 1 ml as Sulfate Inhalation needed every 6 hrs Lancets Super ND 0 n/s finger May Active one Thin stick once 2017 Montelukast [facility] 36326766280 10 MG Orally August 21, Active 1 tablet in Sodium Once a day 2017 the evening Prometrium ND 54676573278 100 MG Orally Active 2 capsules Once a day at bedtime Ipratropium-Al [facility] 03670361463 0.5-2.5 (3) Active 3 ml buterol MG/3ML Inhalation every 6 hrs Vitamin D3 [facility] 79435304622 50,000 PO once Active one tab a week HydrOXYzine ND 00336883855 25 MG Orally Active 1 capsule Pamoate every 8 hrs as needed Simvastatin ND 30887734863 10 MG Orally Active 1 tablet in Once a day the evening Nicotine Step ND 67206068766 21 MG/24HR Nov 08, Active 1 patch to 1 Transdermal 2018 skin Once a day Nasonex ND 67605066771 50 MCG/ACT August 21, Active 2 sprays in Nasally Once a 2018 each day nostril Chantix ND 41440004821 1 MG Orally Active 1 tablet Continuing Twice a day Month Quinten Garcia [facility] 01666454990 100 MG Active 1 EACH ONCE A DAY ORALLY Chantix [facility] 20379541835 0.5 MG X 11 & 1 Active not defined Starting Month MG X 42 Orally Quinten Hines [facility] 01364311534 100-25 MCG/INH Active 1 puff Inhalation Once a day blood glucose [facility] 0 n/s n/s twice a May Active one test strip 2017 Spiriva [facility] 68839929662 18 MCG Active 1 capsule HandiHaler Inhalation Once a day Januvia [facility] 84278111139 100 MG Orally Nov 08, Active 1 tablet Once a day 2017 Results No Known Results Summary Purpose eClinicalWorks Submission
[2018-01-29 09:18] VITALS: TEMP 98.4
[2018-01-29 09:19] VITALS: BP 129/70; O2SAT 100
--- NOTE | 2018-01-29 19:43 | OP ---
Surgeon: Damian Latif MD Procedure Performed: Colonoscopy. Indication For Procedure: Staged colonoscopy due to large polyps and multiple polyps. Plan For Anesthesia: Monitored anesthesia care. Complexity: Average. Technique: After obtaining informed consent from the patient explaining risks and complications whic h include, but are not limited to bleeding, infection, perforation, and anesthesia complications, the patient was placed in the left lateral position and sedation was given. From then on, a digital rec jannie exam was performed and scope inserted into rectum and carefully guided up to the cecum. After th e completion of examination and all diagnostic maneuvers, the scope and equipment were withdrawn and procedure terminated in a safe manner. Findings: Grade 1 internal hemorrhoids were seen in the rectum on retroflexion. A few small diverti cula seen in the sigmoid. At the splenic flexure two 4-5 mm polyps were seen, these were removed by hot biopsy. In the transverse colon, 3 polyps, 3-4 mm in size were seen, these were removed by hot b iopsy. In the proximal ascending colon, the site of the prior polypectomy was seen. No definitive p olyp tissue was visualized. However, there was some granulation and scarring from prior polypectomy, hot biopsy were taken to rule out adenomatous tissue. In the cecum, 2 mm polyp was seen, this was r emoved with cold forceps. Complications: None. Tolerance To Anesthesia: Excellent. Postoperative Diagnoses: Diverticulosis, polyps. Plan: 1.Await pathology results. 2.Follow up in the GI clinic in 2 weeks. Due to high risk nature, patient should repeat her colonoscopy in 2 years, if proximal ascending colo n biopsies do not show any adenomatous tissue. If it does, then will repeat in 1 year. US/MODL Voice ID: [id number] Report ID: [id number]
== END 2018-01-29 09:15 | disposition home or self-care (01) ==
LOC: OR 07:10
PROVIDERS: ATTEND Internal Medicine Gastroenterology
PROC: 0DBL8ZX Excision of Transverse Colon, Via Natural or Artificial Opening Endoscopic, Diagnostic (ICD-10-PCS; 2018-01-29)
PROC: 0DBH8ZX Excision of Cecum, Via Natural or Artificial Opening Endoscopic, Diagnostic (ICD-10-PCS; 2018-01-29)
PROC: 0DBK8ZX Excision of Ascending Colon, Via Natural or Artificial Opening Endoscopic, Diagnostic (ICD-10-PCS; principal; 2018-01-29 08:00)
DX: D12.3 Benign neoplasm of transverse colon (principal); K63.5 Polyp of colon; K64.0 First degree hemorrhoids; E11.9 Type 2 diabetes mellitus without complications; I10 Essential (primary) hypertension; J44.9 Chronic obstructive pulmonary disease, unspecified; E78.00 Pure hypercholesterolemia, unspecified; F17.200 Nicotine dependence, unspecified, uncomplicated; Z79.84 Long term (current) use of oral hypoglycemic drugs; Z79.899 Other long term (current) drug therapy
CPT/HCPCS: 82962; 88305; J2704; J7030

== ENCOUNTER 2018-02-18 19:25 | Emergency (ER) | payer OTHER ==
--- OUTSIDE RECORDS SUMMARY | 2018-02-18 19:27 | XMS REPORT | Continuity of Care Document ---
[...] Number For Provider Date Date Visit Outpatient [id number] ZACK 07/12 [facility] Outpatient [id number] ZACK 08/18 [facility] Bryson Procedures Procedure Code Date Perfomer Comments Source
--- OUTSIDE RECORDS SUMMARY | 2018-02-18 19:27 | XMS REPORT ---
[...] End Status Dosage System Date Date Duexis [facility] 66748434251 800-26.6 MG Active 1 tablet Orally Three times a day Cozaar [facility] 62005516378 100 MG Active 1 EACH ONCE A DAY ORALLY HydrOXYzine ND 23631069147 25 MG Orally Active 1 capsule Pamoate every 8 hrs as needed Gabapentin ND 72882942081 300 MG Orally June 12, Active 1 capsule Twice a day 2018 before bedtime ProAir HFA [facility] 06347646489 108 (90 Base) Active 2 puffs as MCG/ACT needed Inhalation every 6 hrs Vitamin D3 [facility] 26311728549 50,000 PO once Active one tab a week Lancets Super NDC 0 n/s finger May Active one Thin stick once 2017 Chantix ND 69888375889 0.5 MG X 11 & 1 Active not defined Starting Month MG X 42 Orally Quinten Glucometer NDC 0 n/s n/s use as May Active one directed 2017 blood glucose NDC 0 n/s n/s twice a May Active one test strip day 2017 Breo Ellipta ND 88209104317 100-25 MCG/INH Sep 20, Active 1 puff Inhalation Once 2017 a day Spiriva ND 65093272660 18 MCG Active 1 capsule HandiHaler Inhalation Once a day Albuterol ND 28559913924 (5 MG/ML) 0.5% Active 1 ml as Sulfate Inhalation needed every 6 hrs Prometrium ND 79494943080 100 MG Orally Active 2 capsules Once a day at bedtime Chantix ND 18902529053 1 MG Orally MaySep 20, Active 1 tablet Continuing Twice a day 2017 Month Quinten Alcohol Prep NDC 0 twice a day May Active as directed Pads 2017 Effexor XR ND 65795034989 150 MG Orally Active 1 capsule Once a day with food Simvastatin ND 73983721996 10 MG Orally Active 1 tablet in Once a day the evening Metformin HCl ND 50773609201 850 MG Active 1 EACH 3 TIMES A DAY ORALLY Results Name Result Date Reference Range Unit Abnormality Flag URINALYSIS AUTO W/O SCOPE (24520) ----EDWARDO neg [id number] ----NIT neg [id number] ----PROTEIN neg [id number] ----pH 5.0 20170613 ----GLUCOSE neg [id number] ----KETONES neg [id number] ----SPECIFIC GRAVITY 1.020 [id number] ----BLO 2+ [id number] PVR ----PVR 12 [id number] Summary Purpose eClinicalWorks Submission
--- OUTSIDE RECORDS SUMMARY | 2018-02-18 19:27 | XMS REPORT | Clinical Summary ---
:1955 Author Organization [facility] Address [address] [place] [address] Care Team Providers Name Role Phone Sharpjessica [...] Not on file Results Not on fileafter 02/17/2017 Insurance Payer Benefit Plan / Group Subscriber ID Type Phone Address [facility] [employer]ANGE xxxxxxxxx
--- OUTSIDE RECORDS SUMMARY | 2018-02-18 19:27 | XMS REPORT ---
[...] Active one directed 2017 Breo Ellipta ND 41288674707 100-25 MCG/INH Sep 20, Active 1 puff Inhalation Once 2017 a day Prometrium ND 15193267780 100 MG Orally Active 2 capsules Once a day at bedtime Cozaar ND 11667877824 100 MG Active 1 EACH ONCE A DAY ORALLY Effexor XR ND 50691897517 150 MG Orally Active 1 capsule Once a day with food blood glucose NDC 0 n/s n/s twice a MayAugust 16, Active one test strip day 2017 Lyrica ND 73124501533 75 MG Orally Active 1 capsule 1 Twice a day to 3 hours before bedtime in the evening Albuterol ND 59044454304 (5 MG/ML) 0.5% Active 1 ml as Sulfate Inhalation needed every 6 hrs Augmentin [facility] 43495593758 875-125 MG May Active 1 tablet Orally every 12 2017 hrs Chantix ND 20114996090 1 MG Orally MaySep 20, Active 1 tablet Continuing Twice a day 2017 Month Quinten Vitamin D3 ND 23360084557 50,000 PO once Active one tab a week Duexis [facility] 76833788346 800-26.6 MG Active 1 tablet Orally Three times a day Spiriva ND 80256212231 18 MCG Active 1 capsule HandiHaler Inhalation Once a day Metformin HCl ND 09352149888 850 MG Active 1 EACH 3 TIMES A DAY ORALLY Chantix [facility] 65755305065 0.5 MG X 11 & 1 Active not defined Starting Month MG X 42 Orally Quinten Simvastatin ND 80455590588 10 MG Orally Active 1 tablet in Once a day the evening ProAir HFA ND 98999998775 108 (90 Base) Active 2 puffs as MCG/ACT needed Inhalation every 6 hrs Lancets Super NDC 0 n/s finger May Active one Thin stick once 2017 HydrOXYzine ND 63779707369 25 MG Orally Active 1 capsule Pamoate every 8 hrs as needed Results No Known Results Summary Purpose eClinicalWorks Submission
--- OUTSIDE RECORDS SUMMARY | 2018-02-18 19:27 | XMS REPORT ---
[...] Date Status Dosage System Date Gabapentin ND 98314247173 300 MG Orally June 12, Active 1 capsule Twice a day 2018 before bedtime Lyrica ND 64901072253 75 MG Orally Inactive 1 capsule Twice a day 1 to 3 hours before bedtime in the evening Results No Known Results Summary Purpose eClinicalWorks Submission
--- OUTSIDE RECORDS SUMMARY | 2018-02-18 19:28 | XMS REPORT ---
[...] Active as directed Pads 2017 Gabapentin NDC 34038396316 300 MG Orally June 12, Active 1 capsule Twice a day 2017 before bedtime HydrOXYzine ND 91647678409 25 MG Orally Active 1 capsule Pamoate every 8 hrs as needed Duexis [facility] 46261346652 800-26.6 MG Active 1 tablet Orally Three times a day Nasonex ND 99109867799 50 MCG/ACT August 21, Active 2 sprays in Nasally Once a 2017 each day nostril Azithromycin ND 48713688548 500 MG Orally Oct 08Oct Active one tablet Once a day 2017 Ipratropium-Albu ND 39168959947 0.5-2.5 (3) Oct 08, Active 3 ml terol MG/3ML 2018 Inhalation every 6 hrs Lancets Super ND 0 n/s finger May Active one Thin stick once 2017 Albuterol ND 61901427654 (5 MG/ML) 0.5% Active 1 ml as Sulfate Inhalation needed every 6 hrs Simvastatin ND 71012124532 10 MG Orally Active 1 tablet in Once a day the evening Breo Ellipta ND 31576178290 100-25 MCG/INH Active 1 puff Inhalation Once a day ProAir HFA [facility] 21372515542 108 (90 Base) Active 2 puffs as MCG/ACT needed Inhalation every 6 hrs PredniSONE ND 29839061704 20 MG Orally Oct 08Oct Active 1 tablet Twice a day for 2017 06, 5 days and then 2017 daily for 5 days Doxycycline ND 18230620476 100 MG Orally Oct 08Oct Active 1 tablet Hyclate Twice a day 2017 blood glucose [facility] 0 n/s n/s twice a May Active one test strip day 2017 Chantix Starting [facility] 15247982246 0.5 MG X 11 & 1 Active not defined Month Quinten MG X 42 Orally Metformin HCl [facility] 50611149703 850 MG Active 1 EACH 2 TIMES A DAY ORALLY Prometrium ND 47121816549 100 MG Orally Active 2 capsules Once a day at bedtime Vitamin D3 ND 09798082777 50,000 PO once Active one tab a week Lyrica ND 84911704172 75 MG Orally Active 1 capsule 1 Twice a day to 3 hours before bedtime in the evening Cozaar ND 12362962918 100 MG Active 1 EACH ONCE A DAY ORALLY Chantix ND 08825405149 1 MG Orally Active 1 tablet Continuing Month Twice a day Quinten Spiriva ND 29276217859 18 MCG Active 1 capsule HandiHaler Inhalation Once a day Effexor XR [facility] 82219785272 150 MG Orally Active 1 capsule Once a day with food Montelukast [facility] 79902161325 10 MG Orally August 21, Active 1 tablet in Sodium Once a day 2017 the evening Results No Known Results Summary Purpose eClinicalWorks Submission
--- OUTSIDE RECORDS SUMMARY | 2018-02-18 19:28 | XMS REPORT ---
[...] End Date Status Dosage System Date Spiriva [facility] 82759784104 18 MCG May Active 1 capsule HandiHaler Inhalation Once 2018 a day Montelukast ND 77112126987 10 MG Orally August 21, Active 1 tablet Sodium Once a day 2018 in the evening Effexor XR ND 10460567099 150 MG Orally Active 1 capsule Once a day with food Cozaar ND 79638667237 100 MG Orally Active 1 EACH Once a day ONCE A DAY ORALLY Breo Ellipta [facility] 45927719877 100-25 MCG/INH May Active 1 puff Inhalation Once 2018 a day Simvastatin [facility] 65057299769 10 MG Orally Active 1 tablet Once a day in the evening Results No Known Results Summary Purpose eClinicalWorks Submission
--- OUTSIDE RECORDS SUMMARY | 2018-02-18 19:28 | XMS REPORT ---
[...] Start End Date Status Dosage Date Ipratropium-Alb [facility] 90418874088 0.5-2.5 (3) Active 3 ml uterol MG/3ML Inhalation every 6 hrs Results No Known Results Summary Purpose eClinicalWorks Submission
--- OUTSIDE RECORDS SUMMARY | 2018-02-18 19:28 | XMS REPORT ---
[...] Dosage System Date Date Vitamin D3 NDC 68778860062 50,000 PO once Active one tab a week Metformin HCl ND 25429773867 850 MG Active 1 EACH 2 TIMES A DAY ORALLY Glucometer ND 0 n/s n/s use as May Active one directed 2017 Effexor XR ND 93925189849 150 MG Orally Active 1 capsule Once a day with food Alcohol Prep NDC 0 twice a day May Active as directed Pads 2017 Chantix ND 81933928411 1 MG Orally Active 1 tablet Continuing Twice a day Month Quinten Spiriva [facility] 46805358336 18 MCG Active 1 capsule HandiHaler Inhalation Once a day Duexis [facility] 40095253199 800-26.6 MG Active 1 tablet Orally Three times a day blood glucose ND 0 n/s n/s twice a May Active one test strip day 2017 Prometrium ND 30046980983 100 MG Orally Active 2 capsules Once a day at bedtime Gabapentin ND 01293504588 300 MG Orally June 12, Active 1 capsule Twice a day 2017 before bedtime Montelukast ND 02808806109 10 MG Orally August 21, Active 1 tablet in Sodium Once a day 2017 the evening Nasonex ND 76232756116 50 MCG/ACT August 21, Active 2 sprays in Nasally Once a 2017 each day nostril Cozaar [facility] 37883503014 100 MG Active 1 EACH ONCE A DAY ORALLY Lyrica ND 69499289405 75 MG Orally Active 1 capsule 1 Twice a day to 3 hours before bedtime in the evening HydrOXYzine ND 97719849688 25 MG Orally Active 1 capsule Pamoate every 8 hrs as needed Chantix [facility] 20150904527 0.5 MG X 11 & 1 Active not defined Starting Month MG X 42 Orally Quinten ProAir HFA [facility] 23463610219 108 (90 Base) Active 2 puffs as MCG/ACT needed Inhalation every 6 hrs Albuterol ND 40013214212 (5 MG/ML) 0.5% Active 1 ml as Sulfate Inhalation needed every 6 hrs Lancets Super ND 0 n/s finger May Active one Thin stick once 2017 Simvastatin ND 58808197824 10 MG Orally Active 1 tablet in Once a day the evening Breo Ellipta ND 90192426214 100-25 MCG/INH Active 1 puff Inhalation Once a day Results No Known Results Summary Purpose eClinicalWorks Submission
--- OUTSIDE RECORDS SUMMARY | 2018-02-18 19:28 | XMS REPORT ---
[...] End Status Dosage System Date Date Albuterol [facility] 88070475261 (5 MG/ML) 0.5% Active 1 ml as Sulfate Inhalation needed every 6 hrs Chantix ND 71559383009 0.5 MG X 11 & 1 Active not defined Starting Month MG X 42 Orally Quinten Vitamin D3 ND 82396885179 50,000 PO once Active one tab a week Alcohol Prep NDC 0 twice a day May Active as directed Pads 2017 Gabapentin ND 48019488158 300 MG Orally June 12, Active 1 capsule Twice a day 2017 before bedtime Chantix ND 10297678451 1 MG Orally Active 1 tablet Continuing Twice a day Month Quinten Lyrica [facility] 33504400378 75 MG Orally Active 1 capsule 1 Twice a day to 3 hours before bedtime in the evening HydrOXYzine [facility] 97874333292 25 MG Orally Active 1 capsule Pamoate every 8 hrs as needed ProAir HFA [facility] 73809589521 108 (90 Base) Active 2 puffs as MCG/ACT needed Inhalation every 6 hrs Simvastatin [facility] 62659908863 10 MG Orally Active 1 tablet in Once a day the evening Montelukast ND 50044683231 10 MG Orally August 21, Active 1 tablet in Sodium Once a day 2017 the evening Nasonex ND 10105906026 50 MCG/ACT August 21, Active 2 sprays in Nasally Once a 2017 each day nostril Cozaar [facility] 11183591500 100 MG Active 1 EACH ONCE A DAY ORALLY Effexor XR [facility] 50423638227 150 MG Orally Active 1 capsule Once a day with food Prometrium [facility] 90706878110 100 MG Orally Active 2 capsules Once a day at bedtime Duexis [facility] 89988282432 800-26.6 MG Active 1 tablet Orally Three times a day Spiriva [facility] 47874546978 18 MCG Active 1 capsule HandiHaler Inhalation Once a day Metformin HCl [facility] 63758794840 850 MG Active 1 EACH 2 TIMES A DAY ORALLY Lancets Super NDC 0 n/s finger May Active one Thin stick once 2017 blood glucose NDC 0 n/s n/s twice a May Active one test strip day 2017 Breo Ellipta [facility] 73528463288 100-25 MCG/INH Active 1 puff Inhalation Once a day Results Name Result Date Reference Range Unit Abnormality Flag URINALYSIS AUTO W/O SCOPE (86519) ----EDWARDO neg [id number] ----NIT neg [id number] ----PROTEIN neg [id number] ----pH 6.0 20170912 ----BLO 1+ [id number] ----GLUCOSE neg [id number] ----BILIRUBIN neg [id number] ----KETONES neg [id number] ----SPECIFIC GRAVITY <+1.005 [id number] Summary Purpose eClinicalWorks Submission
--- OUTSIDE RECORDS SUMMARY | 2018-02-18 19:28 | XMS REPORT ---
[...] Status Dosage System Date Date Gabapentin ND 87302745636 300 MG Orally June 12, Active 1 capsule Twice a day 2017 before bedtime Alcohol Prep ND 0 twice a day May Active as directed Pads 2017 Lyrica ND 11804187242 75 MG Orally Active 1 capsule 1 Twice a day to 3 hours before bedtime in the evening Effexor XR [facility] 57897944884 150 MG Orally Active 1 capsule Once a day with food ProAir HFA [facility] 37178820421 108 (90 Base) Active 2 puffs as MCG/ACT needed Inhalation every 6 hrs Metformin HCl [facility] 34151719355 850 MG Inactive 1 EACH 2 TIMES A DAY ORALLY Duexis [facility] 58535638228 800-26.6 MG Active 1 tablet Orally Three times a day Albuterol [facility] 29913531464 (5 MG/ML) 0.5% Active 1 ml as Sulfate Inhalation needed every 6 hrs Lancets Super ND 0 n/s finger May Active one Thin stick once 2017 Montelukast [facility] 10648714222 10 MG Orally August 21, Active 1 tablet in Sodium Once a day 2017 the evening Prometrium ND 12821429919 100 MG Orally Active 2 capsules Once a day at bedtime Ipratropium-Al [facility] 08359237745 0.5-2.5 (3) Active 3 ml buterol MG/3ML Inhalation every 6 hrs Vitamin D3 [facility] 62001615613 50,000 PO once Active one tab a week HydrOXYzine ND 33552760283 25 MG Orally Active 1 capsule Pamoate every 8 hrs as needed Simvastatin ND 21876829341 10 MG Orally Active 1 tablet in Once a day the evening Nicotine Step ND 85094822018 21 MG/24HR Nov 08, Active 1 patch to 1 Transdermal 2018 skin Once a day Nasonex ND 99503640812 50 MCG/ACT August 21, Active 2 sprays in Nasally Once a 2018 each day nostril Chantix ND 39423374233 1 MG Orally Active 1 tablet Continuing Twice a day Month Quinten Garcia [facility] 13594815342 100 MG Active 1 EACH ONCE A DAY ORALLY Chantix [facility] 86778393454 0.5 MG X 11 & 1 Active not defined Starting Month MG X 42 Orally Quinten Hines [facility] 80938166344 100-25 MCG/INH Active 1 puff Inhalation Once a day blood glucose [facility] 0 n/s n/s twice a May Active one test strip 2017 Spiriva [facility] 99030898707 18 MCG Active 1 capsule HandiHaler Inhalation Once a day Januvia [facility] 59089580094 100 MG Orally Nov 08, Active 1 tablet Once a day 2017 Results No Known Results Summary Purpose eClinicalWorks Submission
--- OUTSIDE RECORDS SUMMARY | 2018-02-18 19:29 | XMS REPORT ---
[...] End Date Status Dosage System Date Montelukast [facility] 49226313614 10 MG Orally August 21, Active 1 tablet Sodium Once a day 2017 in the evening Breo Ellipta [facility] 31234732258 100-25 MCG/INH May Active 1 puff Inhalation Once 03, 2019 a day Results No Known Results Summary Purpose eClinicalWorks Submission
[2018-02-18 20:13] LABS: Absolute Lymphocytes (CBC) 2.7 K/uL (0.7-4.9); Absolute Monocytes 0.6 K/uL (0.1-1.3); Absolute Neutrophil 3.9 K/uL (1.8-8.0); Basophils % 0.8 % (0-1.3); Eosinophils % 0.4 % (0-4.4); Hematocrit 38.4 % (36.0-45.0); Lymphocytes % 37.3 % (15.3-44.8); MPV 11.5 fL (7.6-11.3); Monocytes % 8.1 % (3.3-12.3); RBC Red Blood Cell Count 4.26 M/uL (3.86-4.86)
[2018-02-18 20:22] LABS: Protime INR 1.07
[2018-02-18] MEDS ORDERED: METHYLPREDNISOLONE 125 MG INJ ONE (20:23)
[2018-02-18] MEDS ORDERED: Levofloxacin500mg IV 500 MG/100 ML BAG IV ONE (20:24)
[2018-02-18] MEDS ORDERED: IPRATROPIUM BROM 0.5MG/2.5ML ONE (20:24)
[2018-02-18] MEDS ORDERED: HYDROCODONE/CHLORPHEN 5 ML/OSYR ONE (20:24)
[2018-02-18] MEDS ORDERED: NA CHLORIDE 0.9% 1,000 ML ONE (20:24)
[2018-02-18] MEDS ORDERED: LEVALBUTEROL 1.25 MG/3 ML NEB ONE ×2 (20:25→22:13)
[2018-02-18 20:31] LABS: ALT/SGPT 22 U/L (12-78); AST/SGOT 11 U/L (15-37); Albumin 3.9 g/dL (3.4-5.0); Alkaline Phosphatase 83 U/L (45-117); BUN Blood Urea Nitrogen 11 mg/dL (7-18); Bicarbonate 24 mmol/L (21-32); Bilirubin Direct < 0.1 mg/dL (0-0.2); Bilirubin Total 0.2 mg/dL (0.2-1.0); Glucose Level 152 mg/dL (74-106); Lipase 187 U/L (73-393); Magnesium 2.1 mg/dL (1.8-2.4); NT PRO-BNP 22 pg/mL (<125); Potassium 3.5 mmol/L (3.5-5.1); Protein, Total 7.7 g/dL (6.4-8.2); Sodium Level 143 mmol/L (136-145); Troponin (Emerg Dept Use Only) < 0.02 ng/mL (0.0-0.045)
--- NOTE | 2018-02-18 20:49 | RAD REPORT ---
EXAM DESCRIPTION: RAD - Chest Single View - 02/18/2018 8:34 pm CLINICAL HISTORY: COPD Chest pain. COMPARISON: Chest Single View dated 10/30/2017; Chest Pa And Lat (2 Views) dated 10/08/2017; CHEST SIN GLE VIEW dated 04/22/2013; CHEST PA AND LAT 2 VIEW dated 04/09/2010 FINDINGS: Portable technique limits examination quality. The lungs are grossly clear. The heart is normal in size. No displaced fractures. IMPRESSION: No acute intrathoracic process suspected.
[2018-02-18] MEDS ORDERED: ONDANSETRON 4 MG/2 ML VIAL ONE (20:55)
--- NOTE | 2018-02-18 21:28 | RAD REPORT ---
EXAM DESCRIPTION: CT - Chest For Pe Angio - 02/18/2018 9:19 pm CLINICAL HISTORY: Chest pain. PE COMPARISON: No comparisons TECHNIQUE: CT angiogram of the pulmonary arteries was performed with MIP. All CT scans are performed using dose optimization technique as appropriate and may include automated exposure control or mA/KV adjustment according to patient size. FINDINGS: No evidence of pulmonary thromboembolism. No acute aortic finding demonstrated. Diffuse mild COPD is present. No significant pericardial or pleural fluid. No concerning bony finding. IMPRESSION: No evidence of pulmonary thromboembolism. Mild diffuse COPD.
[2018-02-18] MEDS ORDERED: predniSONE 20 MG TAB ONE (22:13)
--- NOTE | 2018-02-18 22:56 | EDPHYS ---
Physician Documentation [facility] Name: Patricia Shoemaker Age: 62 yrs Sex: Female : 1955 Arrival Date: 02/18/2018 Time: 19:28 Bed 2 Private MD: Maile Landeros ED Physician Satish Smiley HPI: 02/18 20:03 This 62 yrs old Black Female presents to ER via Ambulatory with complaints of monica Congestion, Breathing Difficulty, Asthma Exacerbation. 20:03 The patient has shortness of breath at rest, with light activity. Onset: The monica symptoms/episode began/occurred just prior to arrival. Duration: The symptoms are continuous, and are unchanged since they started. Associated signs and symptoms: The patient has no apparent associated signs or symptoms. The patient has not experienced similar symptoms in the past. Historical: - Allergies: 19:35 Sulfa (Sulfonamide Antibiotics); la1 - Home Meds: 20:35 Albuterol Inhl [Active]; Breo Ellipta 100-25 mcg/dose inhalation dsdv 1 puff once daily ak1 [Active]; hydroxyzine pamoate 25 mg Oral cap PRN [Active]; losartan 100 mg Oral tab 1 tab once daily [Active]; Lyrica 75mg Oral 1 cap 2 times per day [Active]; metformin 850 mg Oral tab 1 tab 2 times per day [Active]; montelukast 10 mg Oral tab 1 tab once daily [Active]; pantoprazole 40 mg Oral TbEC 1 tab once daily [Active]; ProAir HFA inhalation [Active]; simvastatin 20 mg Oral tab 1 tab once daily [Active]; Spiriva with HandiHaler 18 mcg inhalation CpDv 1 cap once daily [Active]; venlafaxine 150 mg Oral cp24 1 cap once daily [Active]; Zyrtec 10 mg Oral cap [Active]; - PMHx: 19:35 COPD; Diabetes - NIDDM; Hyperlipidemia; Hypertension; GERD; la1 - PSHx: 20:35 Tubal ligation; BACK; colonoscopy; ak1 - Immunization history:: Adult Immunizations up to date. - Social history:: Smoking status: Patient uses tobacco products, smokes one-half pack cigarettes per day. - Ebola Screening: : No symptoms or risks identified at this time. ROS: 20:04 Constitutional: Negative for fever, chills, and weight loss, Eyes: Negative for injury, monica pain, redness, and discharge, ENT: Negative for injury, pain, and discharge, Neck: Negative for injury, pain, and swelling, Cardiovascular: Negative for chest pain, palpitations, and edema, Abdomen/GI: Negative for abdominal pain, nausea, vomiting, diarrhea, and constipation, Back: Negative for injury and pain, : Negative for injury, bleeding, discharge, and swelling, MS/Extremity: Negative for injury and deformity, Skin: Negative for injury, rash, and discoloration, Neuro: Negative for headache, weakness, numbness, tingling, and seizure. 20:04 Respiratory: Positive for cough, wheezing, inspiratory, expiratory. Exam: 20:05 Constitutional: This is a well developed, well nourished patient who is awake, alert, monica and in no acute distress. Head/Face: Normocephalic, atraumatic. Eyes: Pupils equal round and reactive to light, extra-ocular motions intact. Lids and lashes normal. Conjunctiva and sclera are non-icteric and not injected. Cornea within normal limits. Periorbital areas with no swelling, redness, or edema. ENT: Nares patent. No nasal discharge, no septal abnormalities noted. Tympanic membranes are normal and external auditory canals are clear. Oropharynx with no redness, swelling, or masses, exudates, or evidence of obstruction, uvula midline. Mucous membranes moist. Neck: Trachea midline, no thyromegaly or masses palpated, and no cervical lymphadenopathy. Supple, full range of motion without nuchal rigidity, or vertebral point tenderness. No Meningismus. Chest/axilla: Normal chest wall appearance and motion. Nontender with no deformity. No lesions are appreciated. Cardiovascular: Regular rate and rhythm with a normal S1 and S2. No gallops, murmurs, or rubs. Normal PMI, no JVD. No pulse deficits. Abdomen/GI: Soft, non-tender, with normal bowel sounds. No distension or tympany. No guarding or rebound. No evidence of tenderness throughout. Back: No spinal tenderness. No costovertebral tenderness. Full range of motion. Female : Normal external genitalia. Skin: Warm, dry with normal turgor. Normal color with no rashes, no lesions, and no evidence of cellulitis. MS/ Extremity: Pulses equal, no cyanosis. Neurovascular intact. Full, normal range of motion. Neuro: Awake and alert, GCS 15, oriented to person, place, time, and situation. Cranial nerves II-XII grossly intact. Motor strength 5/5 in all extremities. Sensory grossly intact. Cerebellar exam normal. Normal gait. Psych: Awake, alert, with orientation to person, place and time. Behavior, mood, and affect are within normal limits. 20:05 Respiratory: mild respiratory distress is noted, Respirations: labored breathing, that is mild, Breath sounds: rhonchi, wheezing: expiratory Vital Signs: 19:36 BP 137 / 86; Pulse 120; Resp 26; Pulse Ox 100% on R/A; Weight 84.37 kg; Height 5 ft. 5 la1 in. (165.10 cm); 20:11 Temp 98.4(O); lp1 20:29 BP 147 / 82; Pulse 112; Resp 20; Pulse Ox 100% on R/A; ak1 21:28 BP 127 / 57; Pulse 114; Resp 20; Pulse Ox 100% on R/A; ak1 22:36 BP 123 / 61; Pulse 112; Resp 18; Temp 98.6; Pulse Ox 98% on R/A; Pain 3/10; ak1 23:18 BP 127 / 64; Pulse 111; Resp 18; Temp 98.6; Pulse Ox 100% on R/A; ak1 19:36 Body Mass Index 30.95 (84.37 kg, 165.10 cm) la1 MDM: 19:31 Patient medically screened. [facility] 20:04 Data reviewed: vital signs, nurses notes, lab test result(s), EKG, radiologic studies, [facility] CT scan, plain films. 02/18 19:56 Order name: Basic Metabolic Panel; Complete Time: 21:54 02/18 19:56 Order name: CBC with Diff; Complete Time: 21:54 02/18 19:56 Order name: LFT's; Complete Time: 21:54 02/18 19:56 Order name: Magnesium; Complete Time: 21:54 02/18 19:56 Order name: NT PRO-BNP; Complete Time: 21:54 02/18 19:56 Order name: PT-INR; Complete Time: 21:54 02/18 19:56 Order name: Troponin (emerg Dept Use Only); Complete Time: 21:54 02/18 19:56 Order name: XRAY Chest (1 view); Complete Time: 21:54 02/18 20:03 Order name: Blood Culture Adult (2) [facility] 02/18 20:03 Order name: CT Chest For PE Angio; Complete Time: 21:54 monica 02/18 20:03 Order name: Flu; Complete Time: 21:54 monica 02/18 20:18 Order name: Lipase; Complete Time: 21:54 EDMS 02/18 19:56 Order name: EKG; Complete Time: 19:57 02/18 19:56 Order name: Cardiac monitoring; Complete Time: 20:08 02/18 19:56 Order name: EKG - Nurse/Tech; Complete Time: 20:09 02/18 19:56 Order name: IV Saline Lock; Complete Time: 20:09 02/18 19:56 Order name: Labs collected and sent; Complete Time: 20:09 02/18 19:56 Order name: O2 Per Protocol; Complete Time: 20:09 02/18 19:56 Order name: O2 Sat Monitoring; Complete Time: 20:09 bb Administered Medications: 20:27 Drug: NS 0.9% 500 ml Route: IV; Rate: bolus; Site: right antecubital; ak1 20:58 Follow up: IV Status: Completed infusion; IV Intake: 500ml ak1 20:27 Drug: SOLU-Medrol 125 mg Route: IVP; Site: right antecubital; ak1 20:42 Follow up: Response: No adverse reaction ak1 20:28 Drug: Xopenex 3.75 mg Route: Inhalation; ak1 20:28 Drug: AtroVENT Aerosol 0.5 mg Route: Inhalation; ak1 20:28 Drug: levofloxacin 500 mg Volume: 100 ml; Route: IVPB; Infused Over: 60 mins; Site: ak1 right antecubital; 23:26 Follow up: IV Status: Completed infusion ak1 20:41 Drug: Tussionex Pennkinetic ER 5 ml Route: PO; ak1 20:42 Follow up: Response: No adverse reaction ak1 20:48 Drug: Zofran 4 mg Route: IVP; Site: right antecubital; ak1 20:58 Follow up: Response: No adverse reaction; Nausea is decreased ak1 20:58 Drug: NS 0.9% 1000 ml Route: IV; Rate: 125 ml/hr; Site: right antecubital; ak1 23:29 Follow up: IV Status: Completed infusion ak1 22:02 Drug: NS 0.9% 500 ml Route: IV; Rate: bolus; Site: right antecubital; ak1 23:25 Follow up: IV Status: Completed infusion ak1 22:07 Drug: predniSONE 40 mg Route: PO; ak1 23:26 Follow up: Response: No adverse reaction ak1 22:07 Drug: Xopenex 1.25 mg Route: Inhalation; ak1 Disposition: 02/18/18 22:55 Discharged to Home. Impression: Chronic obstructive pulmonary disease with (acute) exacerbation - mild, Dyspnea. - Condition is Stable. - Discharge Instructions: Asthma, Adult, Chronic Bronchitis, Chronic Obstructive Pulmonary Disease, How to Use an Inhaler, Chronic Obstructive Pulmonary Disease Exacerbation, Chronic Obstructive Pulmonary Disease, Sdie-es-Kbbd, Asthma, Adult, Beot-pk-Qotq, Cough, Adult, Xyzo-td-Juve, How to Use a Nebulizer. - Prescriptions for Levaquin 500 mg Oral Tablet - take 1 tablet by ORAL route once daily for 7 days; 7 tablet. Albuterol Sulfate 2.5 mg /3 mL (0.083 %) Inhalation Solution for Nebulization - inhale 1 unit by NEBULIZATION route every 8 hours As needed; 1 box. Prednisone 20 mg Oral Tablet - take 2 tablet by ORAL route once daily for 5 days; 10 tablet. Albuterol Sulfate 90 mcg/actuation - inhale 1-2 puff by INHALATION route every 4-6 hours; 1 Inhaler. - Medication Reconciliation Form, Thank You Letter, Antibiotic Education, Prescription Opioid Use, Work release form form. - Follow up: Maile Landeros MD; When: 1 - 2 days; Reason: Recheck today's complaints, Continuance of care, Re-evaluation by your physician. - Problem is new. - Symptoms have improved. Signatures: Dispatcher [employer] EDSatish Coppola MD MD cha Ballard, Brenda, RN RN Troy Moses RN RN la1 Fiorella Groves, RN RN ak1 Corrections: (The following items were deleted from the chart) 20:18 20:03 LIPASE+C.LAB.BRZ ordered. EDMS EDMS 23:42 22:55 02/18/2018 22:55 Discharged to Home. Impression: Chronic obstructive pulmonary ak1 disease with (acute) exacerbation - mild; Dyspnea. Condition is Stable. Forms are Medication Reconciliation Form, Thank You Letter, Antibiotic Education, Prescription Opioid Use. Follow up: Maile Landeros; When: 1 - 2 days; Reason: Recheck today's complaints, Continuance of care, Re-evaluation by your physician. Problem is new. Symptoms have improved. monica
--- NOTE | 2018-02-18 22:56 | ER ---
Nurse's Notes [facility] Name: Patricia Shoemaker Age: 62 yrs Sex: Female : 1955 Arrival Date: 02/18/2018 Time: 19:28 Bed 2 Private MD: Maile Landeros Diagnosis: Chronic obstructive pulmonary disease with (acute) exacerbation-mild;Dyspnea Presentation: 02/18 19:34 Presenting complaint: Patient states: Shortness of breath, worsening since 1400 today, la1 hx of copd. Transition of care: patient was not received from another setting of care. Resp Distress? Moderate respiratory distress is noted. Onset of symptoms was February 18, 2018. Risk Assessment: Do you want to hurt yourself or someone else? Patient reports no desire to harm self or others. Initial Sepsis Screen: Does the patient meet any 2 criteria?. 19:34 Method Of Arrival: Ambulatory la1 19:34 Acuity: MICKI 2 la1 20:31 Initial Sepsis Screen: Does the patient have a suspected source of infection? No. ak1 Patient's initial sepsis screen is negative. Care prior to arrival: None. Historical: - Allergies: 19:35 Sulfa (Sulfonamide Antibiotics); la1 - Home Meds: 20:35 Albuterol Inhl [Active]; Breo Ellipta 100-25 mcg/dose inhalation dsdv 1 puff once daily ak1 [Active]; hydroxyzine pamoate 25 mg Oral cap PRN [Active]; losartan 100 mg Oral tab 1 tab once daily [Active]; Lyrica 75mg Oral 1 cap 2 times per day [Active]; metformin 850 mg Oral tab 1 tab 2 times per day [Active]; montelukast 10 mg Oral tab 1 tab once daily [Active]; pantoprazole 40 mg Oral TbEC 1 tab once daily [Active]; ProAir HFA inhalation [Active]; simvastatin 20 mg Oral tab 1 tab once daily [Active]; Spiriva with HandiHaler 18 mcg inhalation CpDv 1 cap once daily [Active]; venlafaxine 150 mg Oral cp24 1 cap once daily [Active]; Zyrtec 10 mg Oral cap [Active]; - PMHx: 19:35 COPD; Diabetes - NIDDM; Hyperlipidemia; Hypertension; GERD; la1 - PSHx: 20:35 Tubal ligation; BACK; colonoscopy; ak1 - Immunization history:: Adult Immunizations up to date. - Social history:: Smoking status: Patient uses tobacco products, smokes one-half pack cigarettes per day. - Ebola Screening: : No symptoms or risks identified at this time. Screenin:32 Abuse screen: Denies threats or abuse. Denies injuries from another. Nutritional ak1 screening: No deficits noted. Tuberculosis screening: No symptoms or risk factors identified. Fall Risk None identified. Assessment: 20:29 General: Appears distressed, uncomfortable, Behavior is calm, cooperative. Pain: ak1 Complains of pain in back and chest. Neuro: No deficits noted. Cardiovascular: Patient's skin is warm and dry. Rhythm is sinus tachycardia. 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 GI: No signs and/or symptoms were reported involving the gastrointestinal system. : No signs and/or symptoms were reported regarding the genitourinary system. EENT: No signs and/or symptoms were reported regarding the EENT system. Derm: No signs and/or symptoms reported regarding the dermatologic system. Musculoskeletal: No signs and/or symptoms reported regarding the musculoskeletal system. 22:36 Reassessment: Patient appears in no apparent distress at this time. Patient and/or ak1 family updated on plan of care and expected duration. Pain level reassessed. Patient is alert, oriented x 3, equal unlabored respirations, skin warm/dry/pink. Patient states symptoms have improved. coughing has decreased. . 23:18 Reassessment: Patient appears in no apparent distress at this time. No changes from ak1 previously documented assessment. pt ambulated to restroom with steady gait. Vital Signs: 19:36 BP 137 / 86; Pulse 120; Resp 26; Pulse Ox 100% on R/A; Weight 84.37 kg; Height 5 ft. 5 la1 in. (165.10 cm); 20:11 Temp 98.4(O); lp1 20:29 BP 147 / 82; Pulse 112; Resp 20; Pulse Ox 100% on R/A; ak1 21:28 BP 127 / 57; Pulse 114; Resp 20; Pulse Ox 100% on R/A; ak1 22:36 BP 123 / 61; Pulse 112; Resp 18; Temp 98.6; Pulse Ox 98% on R/A; Pain 3/10; ak1 23:18 BP 127 / 64; Pulse 111; Resp 18; Temp 98.6; Pulse Ox 100% on R/A; ak1 19:36 Body Mass Index 30.95 (84.37 kg, 165.10 cm) la1 ED Course: 19:28 Patient arrived in ED. es 19:28 Maile Landeros MD is Private Physician. es 19:31 Satish Smiley MD is Attending Physician. monica 19:35 Triage completed. la1 19:36 Arm band placed on left wrist. EKG completed in triage. Results shown to MD. la1 19:45 Initial lab(s) drawn, by me, sent to lab. Inserted saline lock: 22 gauge in right ms antecubital area, using aseptic technique. Blood collected. 19:45 First set of blood cultures drawn by mi. ms 20:05 Radiology exam delayed due to lab results not completed at this time. (BUN/Creatinine) nj IV insertion attempt and/or patient not having appropriate IV at this time. 20:07 Fiorella Groves, RN is Primary Nurse. ak1 20:21 Radiology exam delayed due to lab results not completed at this time. (BUN/Creatinine). nj 20:30 Patient has correct armband on for positive identification. Placed in gown. Bed in low ak1 position. Call light in reach. Side rails up X 1. youth nutritional monitor on. Pulse ox on. NIBP on. 20:35 XRAY Chest (1 view) In Process Unspecified. EDMS 21:19 CT Chest For PE Angio In Process Unspecified. EDMS 22:54 Maile Landeros MD is Referral Physician. monica 23:19 No provider procedures requiring assistance completed. IV discontinued, intact, ak1 bleeding controlled, No redness/swelling at site. Pressure dressing applied. Administered Medications: 20:27 Drug: NS 0.9% 500 ml Route: IV; Rate: bolus; Site: right antecubital; ak1 20:58 Follow up: IV Status: Completed infusion; IV Intake: 500ml ak1 20:27 Drug: SOLU-Medrol 125 mg Route: IVP; Site: right antecubital; ak1 20:42 Follow up: Response: No adverse reaction ak1 20:28 Drug: Xopenex 3.75 mg Route: Inhalation; ak1 20:28 Drug: AtroVENT Aerosol 0.5 mg Route: Inhalation; ak1 20:28 Drug: levofloxacin 500 mg Volume: 100 ml; Route: IVPB; Infused Over: 60 mins; Site: ak1 right antecubital; 23:26 Follow up: IV Status: Completed infusion ak1 20:41 Drug: Tussionex Pennkinetic ER 5 ml Route: PO; ak1 20:42 Follow up: Response: No adverse reaction ak1 20:48 Drug: Zofran 4 mg Route: IVP; Site: right antecubital; ak1 20:58 Follow up: Response: No adverse reaction; Nausea is decreased ak1 20:58 Drug: NS 0.9% 1000 ml Route: IV; Rate: 125 ml/hr; Site: right antecubital; ak1 23:29 Follow up: IV Status: Completed infusion ak1 22:02 Drug: NS 0.9% 500 ml Route: IV; Rate: bolus; Site: right antecubital; ak1 23:25 Follow up: IV Status: Completed infusion ak1 22:07 Drug: predniSONE 40 mg Route: PO; ak1 23:26 Follow up: Response: No adverse reaction ak1 22:07 Drug: Xopenex 1.25 mg Route: Inhalation; ak1 Intake: 20:58 IV: 500ml; Total: 500ml. ak1 Outcome: 22:55 Discharge ordered by . monica 23:19 Discharged to home ambulatory. ak1 23:19 Condition: improved 23:19 Discharge instructions given to patient, Instructed on discharge instructions, follow up and referral plans. no drinking with medication, no driving heavy equipment, medication usage, Demonstrated understanding of instructions, follow-up care, medications. 23:28 Instructed on Prescriptions given X 5 ak1 23:42 Patient left the ED. ak1 Signatures: Dispatcher [employer] Satish Yates MD MD cha Salyer, Edna es Solis, Maria ms Pena, Laura RN RN [email or web address] Troy Castro RN RN [email or web address] Fiorella Groves RN RN ak1 Cosmo Fuller
--- NOTE | 2018-02-19 07:37 | EKG ---
Test Date: 2018-02-18 Test Time: 19:34:17 Lead Sales Consultant: ROMA MEASUREMENT RESULTS: Intervals: Rate: 104 [place]: 138 QRSD: 68 QT: 352 QTc: 462 [place]: P: 68 [place]: 138 QRS: 53 T: 68 INTERPRETIVE STATEMENTS: Sinus tachycardia Otherwise normal ECG Compared to ECG 10/30/2017 03:29:10 Sinus rhythm no longer present Electronically Signed On 02-19-18 07:36:23 BORE MINER OPERATOR by Eddie Baumann
[2018-02-19 09:21] VITALS: TEMP 98.6
[2018-02-19 09:22] VITALS: BP 127/64; O2SAT 100
== END 2018-02-18 23:42 | disposition home or self-care (01) ==
LOC: ER 19:25
DX: J44.1 Chronic obstructive pulmonary disease with (acute) exacerbation (principal); E11.9 Type 2 diabetes mellitus without complications; I10 Essential (primary) hypertension; K21.9 Gastro-esophageal reflux disease without esophagitis; Z79.84 Long term (current) use of oral hypoglycemic drugs; F17.210 Nicotine dependence, cigarettes, uncomplicated; Z79.899 Other long term (current) drug therapy
CPT/HCPCS: 36415; 71045; 71275; 80048; 80076; 83690; 83735; 83880; 84484; 85025; 85610; 87040; 87804; 93005; 96365; 96366; 96375; 99285; J2405; J2930; J7030; J7512; Q9967

== ENCOUNTER 2018-03-26 06:27 | Day surgery (SDC) | payer OTHER ==
--- OUTSIDE RECORDS SUMMARY | 2018-03-26 07:03 | XMS REPORT ---
[...] Active one directed 2017 Breo Ellipta ND 08502210070 100-25 MCG/INH Sep 20, Active 1 puff Inhalation Once 2017 a day Prometrium ND 09118504621 100 MG Orally Active 2 capsules Once a day at bedtime Cozaar ND 00901613899 100 MG Active 1 EACH ONCE A DAY ORALLY Effexor XR ND 58295858631 150 MG Orally Active 1 capsule Once a day with food blood glucose NDC 0 n/s n/s twice a MayAugust 16, Active one test strip day 2017 Lyrica ND 40444604779 75 MG Orally Active 1 capsule 1 Twice a day to 3 hours before bedtime in the evening Albuterol ND 82880520015 (5 MG/ML) 0.5% Active 1 ml as Sulfate Inhalation needed every 6 hrs Augmentin [facility] 07453061255 875-125 MG May Active 1 tablet Orally every 12 2017 hrs Chantix ND 58792389910 1 MG Orally MaySep 20, Active 1 tablet Continuing Twice a day 2017 Month Quinten Vitamin D3 ND 22389134857 50,000 PO once Active one tab a week Duexis [facility] 79419712266 800-26.6 MG Active 1 tablet Orally Three times a day Spiriva ND 98132078000 18 MCG Active 1 capsule HandiHaler Inhalation Once a day Metformin HCl ND 56215679133 850 MG Active 1 EACH 3 TIMES A DAY ORALLY Chantix [facility] 26725798558 0.5 MG X 11 & 1 Active not defined Starting Month MG X 42 Orally Quinten Simvastatin ND 66970305308 10 MG Orally Active 1 tablet in Once a day the evening ProAir HFA ND 33973815419 108 (90 Base) Active 2 puffs as MCG/ACT needed Inhalation every 6 hrs Lancets Super NDC 0 n/s finger May Active one Thin stick once 2017 HydrOXYzine ND 75098007098 25 MG Orally Active 1 capsule Pamoate every 8 hrs as needed Results No Known Results Summary Purpose eClinicalWorks Submission
--- OUTSIDE RECORDS SUMMARY | 2018-03-26 07:03 | XMS REPORT ---
[...] End Status Dosage System Date Date Duexis [facility] 35069778440 800-26.6 MG Active 1 tablet Orally Three times a day Cozaar [facility] 34297130864 100 MG Active 1 EACH ONCE A DAY ORALLY HydrOXYzine ND 95891894337 25 MG Orally Active 1 capsule Pamoate every 8 hrs as needed Gabapentin ND 95158819589 300 MG Orally June 12, Active 1 capsule Twice a day 2018 before bedtime ProAir HFA [facility] 20335265530 108 (90 Base) Active 2 puffs as MCG/ACT needed Inhalation every 6 hrs Vitamin D3 [facility] 77610915516 50,000 PO once Active one tab a week Lancets Super NDC 0 n/s finger May Active one Thin stick once 2017 Chantix ND 65307163172 0.5 MG X 11 & 1 Active not defined Starting Month MG X 42 Orally Quinten Glucometer NDC 0 n/s n/s use as May Active one directed 2017 blood glucose NDC 0 n/s n/s twice a May Active one test strip day 2017 Breo Ellipta ND 88388017444 100-25 MCG/INH Sep 20, Active 1 puff Inhalation Once 2017 a day Spiriva ND 31162102472 18 MCG Active 1 capsule HandiHaler Inhalation Once a day Albuterol ND 57561405707 (5 MG/ML) 0.5% Active 1 ml as Sulfate Inhalation needed every 6 hrs Prometrium ND 68067690055 100 MG Orally Active 2 capsules Once a day at bedtime Chantix ND 04338251245 1 MG Orally MaySep 20, Active 1 tablet Continuing Twice a day 2017 Month Quinten Alcohol Prep NDC 0 twice a day May Active as directed Pads 2017 Effexor XR ND 12612609738 150 MG Orally Active 1 capsule Once a day with food Simvastatin ND 61287914634 10 MG Orally Active 1 tablet in Once a day the evening Metformin HCl ND 78094278343 850 MG Active 1 EACH 3 TIMES A DAY ORALLY Results Name Result Date Reference Range Unit Abnormality Flag URINALYSIS AUTO W/O SCOPE (78126) ----EDWARDO neg [id number] ----NIT neg [id number] ----PROTEIN neg [id number] ----pH 5.0 20170613 ----GLUCOSE neg [id number] ----KETONES neg [id number] ----SPECIFIC GRAVITY 1.020 [id number] ----BLO 2+ [id number] PVR ----PVR 12 [id number] Summary Purpose eClinicalWorks Submission
--- OUTSIDE RECORDS SUMMARY | 2018-03-26 07:03 | XMS REPORT ---
[...] End Status Dosage System Date Date Albuterol [facility] 28288314040 (5 MG/ML) 0.5% Active 1 ml as Sulfate Inhalation needed every 6 hrs Chantix ND 75818156634 0.5 MG X 11 & 1 Active not defined Starting Month MG X 42 Orally Quinten Vitamin D3 ND 92394562529 50,000 PO once Active one tab a week Alcohol Prep NDC 0 twice a day May Active as directed Pads 2017 Gabapentin ND 21515361022 300 MG Orally June 12, Active 1 capsule Twice a day 2017 before bedtime Chantix ND 77052363285 1 MG Orally Active 1 tablet Continuing Twice a day Month Quinten Lyrica [facility] 41416501088 75 MG Orally Active 1 capsule 1 Twice a day to 3 hours before bedtime in the evening HydrOXYzine [facility] 26016209638 25 MG Orally Active 1 capsule Pamoate every 8 hrs as needed ProAir HFA [facility] 76092483299 108 (90 Base) Active 2 puffs as MCG/ACT needed Inhalation every 6 hrs Simvastatin [facility] 89331212741 10 MG Orally Active 1 tablet in Once a day the evening Montelukast ND 33395765053 10 MG Orally August 21, Active 1 tablet in Sodium Once a day 2017 the evening Nasonex ND 21333819251 50 MCG/ACT August 21, Active 2 sprays in Nasally Once a 2017 each day nostril Cozaar [facility] 46765479856 100 MG Active 1 EACH ONCE A DAY ORALLY Effexor XR [facility] 89345577411 150 MG Orally Active 1 capsule Once a day with food Prometrium [facility] 01109136420 100 MG Orally Active 2 capsules Once a day at bedtime Duexis [facility] 05439510756 800-26.6 MG Active 1 tablet Orally Three times a day Spiriva [facility] 80383321667 18 MCG Active 1 capsule HandiHaler Inhalation Once a day Metformin HCl [facility] 17841808385 850 MG Active 1 EACH 2 TIMES A DAY ORALLY Lancets Super NDC 0 n/s finger May Active one Thin stick once 2017 blood glucose NDC 0 n/s n/s twice a May Active one test strip day 2017 Breo Ellipta [facility] 11932311032 100-25 MCG/INH Active 1 puff Inhalation Once a day Results Name Result Date Reference Range Unit Abnormality Flag URINALYSIS AUTO W/O SCOPE (90655) ----EDWARDO neg [id number] ----NIT neg [id number] ----PROTEIN neg [id number] ----pH 6.0 [id number] ----BLO 1+ [id number] ----GLUCOSE neg [id number] ----BILIRUBIN neg [id number] ----KETONES neg [id number] ----SPECIFIC GRAVITY <+1.005 [id number] Summary Purpose eClinicalWorks Submission
--- OUTSIDE RECORDS SUMMARY | 2018-03-26 07:03 | XMS REPORT | Clinical Summary ---
:1955 Author Organization [facility] Address [address] [place] [address] Care Team Providers Name Role Phone Sharpjessica [...] Not on file Results Not on fileafter 03/25/2017 Insurance Payer Benefit Plan / Group Subscriber ID Type Phone Address [facility] EXCHANGE xxxxxxxxx
--- OUTSIDE RECORDS SUMMARY | 2018-03-26 07:03 | XMS REPORT | Continuity of Care Document ---
[...] Number For Provider Date Date Visit Outpatient [id number] [facility] 07[facility] [address] [place] Out[facility] [id number] ZACK 08/18 [facility] [place] Procedures Procedure Code Date Perfomer Comments Source
--- OUTSIDE RECORDS SUMMARY | 2018-03-26 07:03 | XMS REPORT ---
[...] Date Status Dosage System Date Gabapentin ND 56165982097 300 MG Orally June 12, Active 1 capsule Twice a day 2018 before bedtime Lyrica ND 16116371528 75 MG Orally Inactive 1 capsule Twice a day 1 to 3 hours before bedtime in the evening Results No Known Results Summary Purpose eClinicalWorks Submission
--- OUTSIDE RECORDS SUMMARY | 2018-03-26 07:03 | XMS REPORT ---
[...] Dosage System Date Date Vitamin D3 NDC 37910016028 50,000 PO once Active one tab a week Metformin HCl ND 34363323934 850 MG Active 1 EACH 2 TIMES A DAY ORALLY Glucometer ND 0 n/s n/s use as May Active one directed 2017 Effexor XR ND 46433462615 150 MG Orally Active 1 capsule Once a day with food Alcohol Prep NDC 0 twice a day May Active as directed Pads 2017 Chantix ND 80401606310 1 MG Orally Active 1 tablet Continuing Twice a day Month Quinten Spiriva [facility] 80200088721 18 MCG Active 1 capsule HandiHaler Inhalation Once a day Duexis [facility] 92040434383 800-26.6 MG Active 1 tablet Orally Three times a day blood glucose ND 0 n/s n/s twice a May Active one test strip day 2017 Prometrium ND 22287291340 100 MG Orally Active 2 capsules Once a day at bedtime Gabapentin ND 52594366631 300 MG Orally June 12, Active 1 capsule Twice a day 2017 before bedtime Montelukast ND 26985150401 10 MG Orally August 21, Active 1 tablet in Sodium Once a day 2017 the evening Nasonex ND 36449888287 50 MCG/ACT August 21, Active 2 sprays in Nasally Once a 2017 each day nostril Cozaar [facility] 22769981362 100 MG Active 1 EACH ONCE A DAY ORALLY Lyrica ND 71856939683 75 MG Orally Active 1 capsule 1 Twice a day to 3 hours before bedtime in the evening HydrOXYzine ND 37788477753 25 MG Orally Active 1 capsule Pamoate every 8 hrs as needed Chantix [facility] 26274460104 0.5 MG X 11 & 1 Active not defined Starting Month MG X 42 Orally Quinten ProAir HFA [facility] 00435004192 108 (90 Base) Active 2 puffs as MCG/ACT needed Inhalation every 6 hrs Albuterol ND 54853764740 (5 MG/ML) 0.5% Active 1 ml as Sulfate Inhalation needed every 6 hrs Lancets Super ND 0 n/s finger May Active one Thin stick once 2017 Simvastatin ND 17644514770 10 MG Orally Active 1 tablet in Once a day the evening Breo Ellipta ND 00666311723 100-25 MCG/INH Active 1 puff Inhalation Once a day Results No Known Results Summary Purpose eClinicalWorks Submission
--- OUTSIDE RECORDS SUMMARY | 2018-03-26 07:04 | XMS REPORT ---
[...] End Date Status Dosage System Date Spiriva [facility] 68639621027 18 MCG May Active 1 capsule HandiHaler Inhalation Once 2018 a day Montelukast ND 08841504169 10 MG Orally August 21, Active 1 tablet Sodium Once a day 2018 in the evening Effexor XR ND 85586807860 150 MG Orally Active 1 capsule Once a day with food Cozaar ND 68979462528 100 MG Orally Active 1 EACH Once a day ONCE A DAY ORALLY Breo Ellipta [facility] 49800681243 100-25 MCG/INH May Active 1 puff Inhalation Once 2018 a day Simvastatin [facility] 88355865906 10 MG Orally Active 1 tablet Once a day in the evening Results No Known Results Summary Purpose eClinicalWorks Submission
--- OUTSIDE RECORDS SUMMARY | 2018-03-26 07:04 | XMS REPORT ---
[...] Active as directed Pads 2017 Gabapentin NDC 03747054760 300 MG Orally June 12, Active 1 capsule Twice a day 2017 before bedtime HydrOXYzine ND 48410384747 25 MG Orally Active 1 capsule Pamoate every 8 hrs as needed Duexis [facility] 68118110490 800-26.6 MG Active 1 tablet Orally Three times a day Nasonex ND 97540440229 50 MCG/ACT August 21, Active 2 sprays in Nasally Once a 2017 each day nostril Azithromycin ND 44652796458 500 MG Orally Oct 08Oct Active one tablet Once a day 2017 Ipratropium-Albu ND 89474569126 0.5-2.5 (3) Oct 08, Active 3 ml terol MG/3ML 2018 Inhalation every 6 hrs Lancets Super ND 0 n/s finger May Active one Thin stick once 2017 Albuterol ND 13326137177 (5 MG/ML) 0.5% Active 1 ml as Sulfate Inhalation needed every 6 hrs Simvastatin ND 70513040328 10 MG Orally Active 1 tablet in Once a day the evening Breo Ellipta ND 87332349291 100-25 MCG/INH Active 1 puff Inhalation Once a day ProAir HFA [facility] 57046407214 108 (90 Base) Active 2 puffs as MCG/ACT needed Inhalation every 6 hrs PredniSONE ND 56755718927 20 MG Orally Oct 08Oct Active 1 tablet Twice a day for 2017 06, 5 days and then 2017 daily for 5 days Doxycycline ND 76200170024 100 MG Orally Oct 08Oct Active 1 tablet Hyclate Twice a day 2017 blood glucose [facility] 0 n/s n/s twice a May Active one test strip day 2017 Chantix Starting [facility] 90278812366 0.5 MG X 11 & 1 Active not defined Month Quinten MG X 42 Orally Metformin HCl [facility] 79769770149 850 MG Active 1 EACH 2 TIMES A DAY ORALLY Prometrium ND 10427752881 100 MG Orally Active 2 capsules Once a day at bedtime Vitamin D3 ND 73797650637 50,000 PO once Active one tab a week Lyrica ND 64162546336 75 MG Orally Active 1 capsule 1 Twice a day to 3 hours before bedtime in the evening Cozaar ND 38402420924 100 MG Active 1 EACH ONCE A DAY ORALLY Chantix ND 40054359309 1 MG Orally Active 1 tablet Continuing Month Twice a day Quinten Spiriva ND 16305197892 18 MCG Active 1 capsule HandiHaler Inhalation Once a day Effexor XR [facility] 36941231331 150 MG Orally Active 1 capsule Once a day with food Montelukast [facility] 22949807698 10 MG Orally August 21, Active 1 tablet in Sodium Once a day 2017 the evening Results No Known Results Summary Purpose eClinicalWorks Submission
--- OUTSIDE RECORDS SUMMARY | 2018-03-26 07:04 | XMS REPORT ---
[...] End Date Status Dosage System Date Montelukast [facility] 11607501171 10 MG Orally August 21, Active 1 tablet Sodium Once a day 2017 in the evening Breo Ellipta [facility] 47992675067 100-25 MCG/INH May Active 1 puff Inhalation Once 03, 2019 a day Results No Known Results Summary Purpose eClinicalWorks Submission
--- OUTSIDE RECORDS SUMMARY | 2018-03-26 07:04 | XMS REPORT ---
[...] Start End Date Status Dosage Date Ipratropium-Alb [facility] 82411240544 0.5-2.5 (3) Active 3 ml uterol MG/3ML Inhalation every 6 hrs Results No Known Results Summary Purpose eClinicalWorks Submission
--- OUTSIDE RECORDS SUMMARY | 2018-03-26 07:04 | XMS REPORT ---
[...] Status Dosage System Date Date Gabapentin ND 69531186145 300 MG Orally June 12, Active 1 capsule Twice a day 2017 before bedtime Alcohol Prep ND 0 twice a day May Active as directed Pads 2017 Lyrica ND 87952751983 75 MG Orally Active 1 capsule 1 Twice a day to 3 hours before bedtime in the evening Effexor XR [facility] 14414324768 150 MG Orally Active 1 capsule Once a day with food ProAir HFA [facility] 58598767823 108 (90 Base) Active 2 puffs as MCG/ACT needed Inhalation every 6 hrs Metformin HCl [facility] 47950228412 850 MG Inactive 1 EACH 2 TIMES A DAY ORALLY Duexis [facility] 02629132128 800-26.6 MG Active 1 tablet Orally Three times a day Albuterol [facility] 51710247633 (5 MG/ML) 0.5% Active 1 ml as Sulfate Inhalation needed every 6 hrs Lancets Super ND 0 n/s finger May Active one Thin stick once 2017 Montelukast [facility] 69593165984 10 MG Orally August 21, Active 1 tablet in Sodium Once a day 2017 the evening Prometrium ND 95712671761 100 MG Orally Active 2 capsules Once a day at bedtime Ipratropium-Al [facility] 35779282257 0.5-2.5 (3) Active 3 ml buterol MG/3ML Inhalation every 6 hrs Vitamin D3 [facility] 88880894332 50,000 PO once Active one tab a week HydrOXYzine ND 48487135838 25 MG Orally Active 1 capsule Pamoate every 8 hrs as needed Simvastatin ND 84783416923 10 MG Orally Active 1 tablet in Once a day the evening Nicotine Step ND 22520431132 21 MG/24HR Nov 08, Active 1 patch to 1 Transdermal 2018 skin Once a day Nasonex ND 83272124815 50 MCG/ACT August 21, Active 2 sprays in Nasally Once a 2018 each day nostril Chantix ND 22492139033 1 MG Orally Active 1 tablet Continuing Twice a day Month Quinten Garcia [facility] 23941187544 100 MG Active 1 EACH ONCE A DAY ORALLY Chantix [facility] 06412549130 0.5 MG X 11 & 1 Active not defined Starting Month MG X 42 Orally Quinten Hines [facility] 48339807848 100-25 MCG/INH Active 1 puff Inhalation Once a day blood glucose [facility] 0 n/s n/s twice a May Active one test strip 2017 Spiriva [facility] 96641866394 18 MCG Active 1 capsule HandiHaler Inhalation Once a day Januvia [facility] 81463117556 100 MG Orally Nov 08, Active 1 tablet Once a day 2017 Results No Known Results Summary Purpose eClinicalWorks Submission
--- OUTSIDE RECORDS SUMMARY | 2018-03-26 07:04 | XMS REPORT ---
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 B96.20 Active coli] as the cause of diseases classified elsewhere Problem Diabetic neuropathy, painful E11.40 Active Problem [...] Nicotine dependence F17.200 Active Medications Medication Code System Code Instructions Start End Date Status Dosage Date Flonase [facility] 48377316779 50 MCG/DOSE Dec 17, Active 2 spray in Nasally Once a 2018 each day nostril Results No Known Results Summary Purpose eClinicalWorks Submission
--- OUTSIDE RECORDS SUMMARY | 2018-03-26 07:05 | XMS REPORT ---
:1955 Author Organization eClinicalWorks Care Team Providers Name Role Phone Landeros, Na Provider Role Unavailable Allergies No Known Allergies Problems Problem Type Condition Code Onset Dates Condition Status Problem Degeneration of lumbar or M51.37 Active [...] HPV Problem Nicotine dependence F17.200 Active Medications No Known Medications Results No Known Results Summary Purpose eClinicalWorks Submission
--- OUTSIDE RECORDS SUMMARY | 2018-03-26 07:05 | XMS REPORT ---
[...] Start End Date Status Dosage Date Flonase [facility] 27603116926 50 MCG/DOSE Dec 17, Active 2 spray in Nasally Once a 2018 each day nostril Results No Known Results Summary Purpose eClinicalWorks Submission
[2018-03-26] MEDS ORDERED: NA CHLORIDE 0.9% 1,000 ML ONE ×2 (07:13→07:24)
[2018-03-26 07:19] VITALS: O2SAT 96
[2018-03-26] MEDS ORDERED: LIDOCAINE 2% MPF 5 ML VIAL ONE (07:47)
[2018-03-26] MEDS ORDERED: PROPOFOL 200 MG/20 ML VIAL IV ONE (07:47)
[2018-03-26] MEDS ORDERED: FENTANYL CITR 100 MCG/2 ML ONE (07:47)
[2018-03-26] MEDS ORDERED: MIDAZOLAM HCL 2 MG/2 ML INJ ONE (07:47)
[2018-03-26] MEDS: LIDOCAINE 1.5% W/EPI AMP 5 ML ONE ×2 (07:51→08:31)
[2018-03-26] MEDS ORDERED: KETOROLAC 30 MG/ML INJ ONE (08:20)
[2018-03-26 08:40] VITALS: TEMP 98
[2018-03-26 08:41] VITALS: BP 140/85
--- NOTE | 2018-03-26 20:42 | OP ---
Date of Procedure: 03/26/2018 Surgeon: Rylee Jiménez MD Postoperative Diagnoses: 1.Thickened endometrium. 2.Left lower quadrant pain. Postoperative Diagnoses: 1.Thickened endometrium. 2.Left lower quadrant pain. 3.The patient also had history of asymptomatic microscopic hematuria that was being worked up and th ere was a question of whether there was postmenopausal bleeding. Procedures Performed: 1.Hysteroscopy. 2.Dilation and curettage. Anesthesia: MAC plus paracervical block. Specimens: Extremely scant endometrial sample. Condition: Stable. Complications: No complications. Drains: None. Findings: Uterine sounding length was 6 cm thick cervical canal, extremely stenotic. On entering th e possible uterine cavity, the endometrium was not well visualized, either this was a false passage o r there were intrauterine adhesions. The lining appeared to not be consistent with the normal endome trium. However, there was no other passage or potential passage that could of been present, so I rose t ahead and did an endometrial sampling, which was handed out for permanent pathology. Description Of Procedure: After informed consent was verified, the patient was taken back to the OR, placed in a supine fashion on the operating table. After MAC was given, she was placed in a dorsal lithotomy position. Pelvic exam was performed, uterus found to be anteflexed and freely mobile. Cer vix injected with 1.5% lidocaine mixed with 1:200,000 epinephrine, 6 cc in the anterior lip and 6 cc each on the 4 and 8 o'clock positions at the cervicovaginal junction for a paracervical block. Prep x3 with Betadine was done. Slimline diagnostic hysteroscope was used to enter the cervical canal. E xternal os had to be dilated with the tip of a hemostat in order to insert my slimline tip. The tape red tip was inserted gradually and systematically making sure that there was no other passage, opened the cervical canal, after about 3.5 cm this appeared to be entering the uterine cavity, however, the re was interlacing tissue and resistance to advancement. The scope was pulled out, and the scope was reinserted to re-evaluate the canal for any false passage. However, there was not much difference o n reinserting the camera. Proceeded with advancing the tip of the scope carefully in the direction o f the fundus as determined by the pelvic exam, and once I advanced to about 6 cm, stopped here, pulle d back, and re-evaluated. There did not appear to be any normal endometrial tissue, however, this wa s in the uterus itself, so went ahead and sampled this with a #0 endometrial curette. These could b e intrauterine adhesions, because they were paler, there was not much bleeding at this time at all. So, once this was done, the instruments, needle, and sponge counts were done, which were correct in t his case. The patient was recovered from anesthesia and taken to PACU in stable condition. There was still no bleeding at the end of the case other than the tiny spotting consistent with a cervical dil ation. She will follow up with me in 1 week and we will have a discussion about her findings and her patholo gy report. MILTON/SCOTT Voice ID: [id number] Report ID: [id number]
== END 2018-03-26 09:04 | disposition home or self-care (01) ==
LOC: OR 06:27
PROVIDERS: ATTEND Obstetrics & Gynecology
PROC: 0UDB8ZX Extraction of Endometrium, Via Natural or Artificial Opening Endoscopic, Diagnostic (ICD-10-PCS; principal; 2018-03-26 07:30)
DX: R93.89 Abnormal findings on diagnostic imaging of other specified body structures (principal); R10.32 Left lower quadrant pain; E11.9 Type 2 diabetes mellitus without complications; E78.00 Pure hypercholesterolemia, unspecified; I10 Essential (primary) hypertension; K21.9 Gastro-esophageal reflux disease without esophagitis; F32.9 Major depressive disorder, single episode, unspecified; F17.210 Nicotine dependence, cigarettes, uncomplicated; Z79.84 Long term (current) use of oral hypoglycemic drugs; Z79.899 Other long term (current) drug therapy
CPT/HCPCS: 82962; 88305; J2001; J2250; J2704; J3010; J7030

== ENCOUNTER 2019-03-27 12:50 | Emergency (ER) | payer OTHER, SELFPAY ==
[2019-03-27 14:11] LABS: Absolute Lymphocytes (CBC) 3.1 K/uL (0.7-4.9); Basophils % 1.2 % (0-1.3); Hematocrit 39.7 % (36.0-45.0); Lymphocytes % 48.9 % (15.3-44.8); MPV 10.6 fL (7.6-11.3); RBC Red Blood Cell Count 4.38 M/uL (3.86-4.86)
[2019-03-27 14:14] LABS: Protime INR 1.06
--- NOTE | 2019-03-27 14:19 | RAD REPORT ---
EXAM DESCRIPTION: RAD - Chest Single View - 03/27/2019 2:11 pm CLINICAL HISTORY: l arm pain;Chest pain Chest pain. COMPARISON: Chest Single View dated 02/18/2018; Chest Single View dated 10/30/2017; Chest Pa And Lat (2 Views) dated 10/08/2017; CHEST SINGLE VIEW dated 04/22/2013 FINDINGS: Portable technique limits examination quality. The lungs are grossly clear. The heart is normal in size. No displaced fractures.Mildly tortuous thor acic aorta. IMPRESSION: No acute intrathoracic process suspected.
[2019-03-27 14:29] LABS: ALT/SGPT 16 U/L (12-78); AST/SGOT 14 U/L (15-37); Albumin 3.8 g/dL (3.4-5.0); Alkaline Phosphatase 74 U/L (45-117); BUN Blood Urea Nitrogen 12 mg/dL (7-18); Bicarbonate 27 mmol/L (21-32); Bilirubin Direct < 0.1 mg/dL (0-0.2); Bilirubin Total 0.3 mg/dL (0.2-1.0); Glucose Level 87 mg/dL (74-106); NT PRO-BNP 68 pg/mL (<125); Potassium 4.2 mmol/L (3.5-5.1); Protein, Total 7.2 g/dL (6.4-8.2); Sodium Level 142 mmol/L (136-145); Troponin (Emerg Dept Use Only) < 0.02 ng/mL (0.0-0.045)
--- NOTE | 2019-03-27 17:28 | ER ---
Nurse's Notes [facility] Name: Patricia Waldrop Age: 63 yrs Sex: Female : 1955 Arrival Date: 03/27/2019 Time: 12:51 Bed 7 Private MD: Diagnosis: Chest pain, unspecified Presentation: 03/27 13:15 Presenting complaint: Patient states: pain down left arm radiating up to left jaw, iw feels like tightness and is also SOB, started at 0400 this morning. Transition of care: patient was not received from another setting of care. Onset of symptoms was March 27, 2019. Risk Assessment: Do you want to hurt yourself or someone else? Patient reports no desire to harm self or others. Initial Sepsis Screen: Does the patient meet any 2 criteria? No. Patient's initial sepsis screen is negative. Does the patient have a suspected source of infection? No. Patient's initial sepsis screen is negative. Care prior to arrival: None. 13:15 Method Of Arrival: Wheelchair iw 13:15 Acuity: MICKI 2 iw Historical: - Allergies: 13:18 Sulfa (Sulfonamide Antibiotics); iw - Home Meds: 13:25 metformin 850 mg Oral tab 1 tab 2 times per day [Active]; simvastatin 20 mg Oral tab 1 iw tab once daily [Active]; losartan 100 mg Oral tab 1 tab once daily [Active]; venlafaxine 150 mg Oral cp24 1 cap once daily [Active]; Januvia oral oral once daily [Active]; Albuterol Inhl [Active]; - PMHx: 13:18 COPD; Diabetes - NIDDM; GERD; Hyperlipidemia; Hypertension; iw - PSHx: 13:18 Tubal ligation; BACK; colonoscopy; iw - Immunization history:: Adult Immunizations not up to date. - Coronavirus screen:: The patient has NOT traveled to [place] in the past 14 days. Proceed with normal triage process as indicated. - Social history:: Smoking status: Patient reports the use of cigarette tobacco products, smokes one-half pack cigarettes per day. - Ebola Screening: : Patient negative for fever greater than or equal to 101.5 degrees Fahrenheit, and additional compatible Ebola Virus Disease symptoms Patient denies exposure to infectious person Patient denies travel to an Ebola-affected area in the 21 days before illness onset No symptoms or risks identified at this time. Screenin:30 Abuse screen: Denies threats or abuse. Nutritional screening: No deficits noted. rb1 Tuberculosis screening: No symptoms or risk factors identified. Fall Risk None identified. Assessment: 13:30 General: Appears in no apparent distress. comfortable, Behavior is calm, cooperative, rb1 Denies fever. Pain: Complains of pain in left jaw, left arm, left shoulder Pain currently is 7 out of 10 on a pain scale. Quality of pain is described as dull, Pain began 0400 today. Neuro: Level of Consciousness is awake, alert, obeys commands, Oriented to person, place, time, situation. Cardiovascular: Capillary refill < 3 seconds is brisk in bilateral fingers. Cardiovascular: Denies chest pain. Respiratory: Airway is patent Respiratory effort is even, unlabored, Respiratory pattern is regular, symmetrical. GI: No signs and/or symptoms were reported involving the gastrointestinal system. : No signs and/or symptoms were reported regarding the genitourinary system. Derm: Skin is dry, Skin is normal, Skin temperature is warm. Musculoskeletal: Range of motion: intact in all extremities. 14:30 Reassessment: Patient appears in no apparent distress at this time. Patient and/or rb1 family updated on plan of care and expected duration. Pain level reassessed. Patient is alert, oriented x 3, equal unlabored respirations, skin warm/dry/pink. Pain 3/10. 15:30 Reassessment: Patient appears in no apparent distress at this time. Patient and/or rb1 family updated on plan of care and expected duration. Pain level reassessed. Patient is alert, oriented x 3, equal unlabored respirations, skin warm/dry/pink. Denies pain at this time. 16:30 Reassessment: Patient appears in no apparent distress at this time. No changes from rb1 previously documented assessment. 16:44 Reassessment: Patient appears in no apparent distress at this time. Pt. waiting for [place] [facility] [place] on lab results. Dr. Mitchell notified. Patient denies pain at this time. 17:22 Reassessment: Patient appears in no apparent distress at this time. Patient and/or rb1 family updated on plan of care and expected duration. Pain level reassessed. Patient is alert, oriented x 3, equal unlabored respirations, skin warm/dry/pink. Patient denies pain at this time. 17:40 Reassessment: Pt. discontinued her own IV before being discharged. IV was found in the rb1 trash and was intact. Bleeding controlled and dressing was applied. Vital Signs: 13:18 BP 142 / 86; Pulse 91; Resp 16 S; Temp 98.0; Pulse Ox 99% on R/A; Weight 127.01 kg; iw Height 5 ft. 5 in. (165.10 cm); Pain 5/10; 14:15 BP 134 / 70; Pulse 75; Resp 17; Pulse Ox 98% ; rb1 15:15 BP 134 / 63; Pulse 79; Resp 16; Pulse Ox 100% on R/A; Pain 0/10; rb1 16:15 BP 132 / 65; Pulse 77; Resp 17; Pulse Ox 99% on R/A; Pain 0/10; rb1 17:15 BP 145 / 70; Pulse 70; Resp 16; Pulse Ox 99% on R/A; Pain 0/10; rb1 13:18 Body Mass Index 46.59 (127.01 kg, 165.10 cm) iw ED Course: 12:51 Patient arrived in ED. as 12:58 Leida Haney, RN is Primary Nurse. rb1 13:18 Triage completed. iw 13:18 Arm band placed on. iw 13:28 Akin Mitchell MD is Attending Physician. kdr 13:30 Patient has correct armband on for positive identification. Placed in gown. Bed in low rb1 position. Call light in reach. Side rails up X 1. monitor technician on. Pulse ox on. NIBP on. Warm blanket given. 14:02 Initial lab(s) drawn, by ky, sent to lab. Inserted saline lock: 20 gauge in right dh3 antecubital area, using aseptic technique. Blood collected. 17:45 No provider procedures requiring assistance completed. IV discontinued, intact, rb1 bleeding controlled, No redness/swelling at site. Pressure dressing applied. Administered Medications: No medications were administered Outcome: 17:26 Discharge ordered by . kdr 17:50 Discharged to home ambulatory. rb1 17:50 Condition: stable 17:50 Discharge instructions given to patient, Instructed on discharge instructions, follow up and referral plans. medication usage, Demonstrated understanding of instructions, follow-up care, medications, Prescriptions given X 1. 17:50 Patient left the ED. rb1 Signatures: RittgAkin sheriff MD MD kdr Martinez, Amelia as Williams, Irene, RN RN iw Leida Haney RN RN [facility] Zuleika Conrad formerly [facility]
--- NOTE | 2019-03-27 17:29 | EDPHYS ---
Physician Documentation [facility] Name: Patricia Waldrop Age: 63 yrs Sex: Female : 1955 Arrival Date: 03/27/2019 Time: 12:51 Bed 7 Private MD: ED Physician Akin Mitchell HPI: 03/27 15:29 This 63 yrs old Black Female presents to ER via Wheelchair with complaints of Jaw Pain, kdr Arm Pain, lightheaded. 15:29 The patient or guardian complains of pain. kdr Historical: - Allergies: 13:18 Sulfa (Sulfonamide Antibiotics); iw - Home Meds: 13:25 metformin 850 mg Oral tab 1 tab 2 times per day [Active]; simvastatin 20 mg Oral tab 1 iw tab once daily [Active]; losartan 100 mg Oral tab 1 tab once daily [Active]; venlafaxine 150 mg Oral cp24 1 cap once daily [Active]; Januvia oral oral once daily [Active]; Albuterol Inhl [Active]; - PMHx: 13:18 COPD; Diabetes - NIDDM; GERD; Hyperlipidemia; Hypertension; iw - PSHx: 13:18 Tubal ligation; BACK; colonoscopy; iw - Immunization history:: Adult Immunizations not up to date. - Coronavirus screen:: The patient has NOT traveled to [place] in the past 14 days. Proceed with normal triage process as indicated. - Social history:: Smoking status: Patient reports the use of cigarette tobacco products, smokes one-half pack cigarettes per day. - Ebola Screening: : Patient negative for fever greater than or equal to 101.5 degrees Fahrenheit, and additional compatible Ebola Virus Disease symptoms Patient denies exposure to infectious person Patient denies travel to an Ebola-affected area in the 21 days before illness onset No symptoms or risks identified at this time. ROS: 18:53 Constitutional: Negative for fever, chills, and weight loss, Eyes: Negative for injury, kdr pain, redness, and discharge, ENT: Negative for injury, pain, and discharge, Neck: Negative for injury, pain, and swelling, Respiratory: Negative for shortness of breath, cough, wheezing, and pleuritic chest pain, Abdomen/GI: Negative for abdominal pain, nausea, vomiting, diarrhea, and constipation, Back: Negative for injury and pain, : Negative for injury, bleeding, discharge, and swelling, MS/Extremity: Negative for injury and deformity, Skin: Negative for injury, rash, and discoloration, Neuro: Negative for headache, weakness, numbness, tingling, and seizure activity. Psych: Negative for depression, anxiety, suicide ideation, homicidal ideation, and hallucinations, Allergy/Immunology: Negative for hives, rash, and allergies, Endocrine: Negative for neck swelling, polydipsia, polyuria, polyphagia, and marked weight changes, Hematologic/Lymphatic: Negative for swollen nodes, abnormal bleeding, and unusual bruising. 18:53 Cardiovascular: Positive for chest pain, Negative for edema, orthopnea, palpitations, paroxysmal nocturnal dyspnea. Exam: 13:54 ECG was reviewed by the Attending Physician. kdr 18:53 Constitutional: This is a well developed, well nourished patient who is awake, alert, kdr and in no acute distress. Head/Face: Normocephalic, atraumatic. Eyes: Pupils equal round and reactive to light, extra-ocular motions intact. Lids and lashes normal. Conjunctiva and sclera are non-icteric and not injected. Cornea within normal limits. Periorbital areas with no swelling, redness, or edema. Neck: Trachea midline, no thyromegaly or masses palpated, and no cervical lymphadenopathy. Supple, full range of motion without nuchal rigidity, or vertebral point tenderness. No Meningismus. Chest/axilla: Normal chest wall appearance and motion. Nontender with no deformity. No lesions are appreciated. Cardiovascular: Regular rate and rhythm with a normal S1 and S2. No gallops, murmurs, or rubs. Normal PMI, no JVD. No pulse deficits. Respiratory: Lungs have equal breath sounds bilaterally, clear to auscultation and percussion. No rales, rhonchi or wheezes noted. No increased work of breathing, no retractions or nasal flaring. Abdomen/GI: Soft, non-tender, with normal bowel sounds. No distension or tympany. No guarding or rebound. No evidence of tenderness throughout. Back: No spinal tenderness. No costovertebral tenderness. Full range of motion. Skin: Warm, dry with normal turgor. Normal color with no rashes, no lesions, and no evidence of cellulitis. MS/ Extremity: Pulses equal, no cyanosis. Neurovascular intact. Full, normal range of motion. Neuro: Awake and alert, GCS 15, oriented to person, place, time, and situation. Cranial nerves II-XII grossly intact. Motor strength 5/5 in all extremities. Sensory grossly intact. Cerebellar exam normal. Normal gait. Psych: Awake, alert, with orientation to person, place and time. Behavior, mood, and affect are within normal limits. Vital Signs: 13:18 BP 142 / 86; Pulse 91; Resp 16 S; Temp 98.0; Pulse Ox 99% on R/A; Weight 127.01 kg; iw Height 5 ft. 5 in. (165.10 cm); Pain 5/10; 14:15 BP 134 / 70; Pulse 75; Resp 17; Pulse Ox 98% ; rb1 15:15 BP 134 / 63; Pulse 79; Resp 16; Pulse Ox 100% on R/A; Pain 0/10; rb1 16:15 BP 132 / 65; Pulse 77; Resp 17; Pulse Ox 99% on R/A; Pain 0/10; rb1 17:15 BP 145 / 70; Pulse 70; Resp 16; Pulse Ox 99% on R/A; Pain 0/10; rb1 13:18 Body Mass Index 46.59 (127.01 kg, 165.10 cm) iw MDM: 17:26 Patient medically screened. kdr 18:53 Data reviewed: vital signs, nurses notes, lab test result(s), EKG, radiologic studies. kdr Counseling: I had a detailed discussion with the patient and/or guardian regarding: the historical points, exam findings, and any diagnostic results supporting the discharge/admit diagnosis, lab results, radiology results, the need for outpatient follow up. 03/27 13:53 Order name: Basic Metabolic Panel kdr 03/27 13:53 Order name: CBC with Diff kdr 03/27 13:53 Order name: LFT's kdr 03/27 13:53 Order name: Magnesium kdr 03/27 13:53 Order name: NT PRO-BNP kdr 03/27 13:53 Order name: PT-INR kdr 03/27 13:53 Order name: Troponin (emerg Dept Use Only) kdr 03/27 15:19 Order name: Protime (+INR); Complete Time: 15:46 EDMS 03/27 15:21 Order name: Basic Metabolic Panel; Complete Time: 15:46 EDMS 03/27 15:21 Order name: Liver (Hepatic) Function; Complete Time: 15:46 EDMS 03/27 15:21 Order name: Troponin (Emerg Dept Use Only); Complete Time: 15:46 EDMS 03/27 15:21 Order name: NT PRO-BNP; Complete Time: 15:46 EDMS 03/27 15:21 Order name: Magnesium; Complete Time: 15:46 EDMS 03/27 15:24 Order name: CBC with Automated Diff EDMS 03/27 13:53 Order name: XRAY Chest (1 view) kdr 03/27 13:53 Order name: EKG; Complete Time: 13:55 kdr 03/27 13:53 Order name: Cardiac monitoring; Complete Time: 14:05 kdr 03/27 13:53 Order name: EKG - Nurse/Tech; Complete Time: 14:05 kdr 03/27 13:53 Order name: IV Saline Lock; Complete Time: 14:05 kdr 03/27 13:53 Order name: Labs collected and sent; Complete Time: 14:05 kdr 03/27 13:53 Order name: O2 Per Protocol; Complete Time: 14:05 kdr 03/27 13:53 Order name: O2 Sat Monitoring; Complete Time: 14:05 kdr 03/27 15:46 Order name: Troponin (emerg Dept Use Only) kdr 03/27 15:52 Order name: RAD; Complete Time: 16:07 EDMS 03/27 16:43 Order name: Troponin (Emerg Dept Use Only); Complete Time: 17:25 EDMS EC:54 Rate is 83 beats/min. Rhythm is regular, Normal Sinus Rhythm with No ectopy. QRS [place] kdr is Normal. NV interval is normal. QRS interval is normal. Clinical impression: Normal ECG. Administered Medications: No medications were administered Disposition: 03/27/19 17:26 Discharged to Home. Impression: Chest pain, unspecified. - Condition is Stable. - Discharge Instructions: Musculoskeletal Pain, Nonspecific Chest Pain, [id number]. - Prescriptions for Tramadol 50 mg Oral Tablet - take 1 tablet by ORAL route every 8 hours as needed; 12 tablet. - Medication Reconciliation Form, Thank You Letter, Prescription Opioid Use form. - Follow up: Private Physician; When: 2 - 3 days; Reason: If symptoms return, Further diagnostic work-up, Recheck today's complaints, Continuance of care, Re-evaluation by your physician. - Problem is new. - Symptoms have improved. Signatures: Dispatcher [employer] EDMS Akin Mitchell MD MD kdr Natasha Lizama RN RN iw Leida Haney, RN RN rb1 Corrections: (The following items were deleted from the chart) 17:50 17:26 03/27/2019 17:26 Discharged to Home. Impression: Chest pain, unspecified. rb1 Condition is Stable. Forms are Medication Reconciliation Form, Thank You Letter, Antibiotic Education, Prescription Opioid Use. Follow up: Private Physician; When: 2 - 3 days; Reason: If symptoms return, Further diagnostic work-up, Recheck today's complaints, Continuance of care, Re-evaluation by your physician. Problem is new. Symptoms have improved. kdr
--- NOTE | 2019-03-27 17:46 | EKG ---
Test Date: 2019-03-27 Test Time: 13:23:06 Disability Hearing Officer: SANIA MEASUREMENT RESULTS: Intervals: Rate: 83 DE: 152 QRSD: 66 QT: 376 QTc: 441 [place]: P: 48 DE: 152 QRS: 12 T: 50 INTERPRETIVE STATEMENTS: Normal sinus rhythm Normal ECG No previous ECG available for comparison Electronically Signed On 03-27-19 17:46:15 PICKLER HELPER by Eddie Baumann
[2019-03-27 18:02] LABS: Platelet Estimate ADEQ
[2019-03-27 18:15] LABS: Blood Morphology Comment NOT SEEN (NOT SEEN)
[2019-03-28 10:58] VITALS: TEMP 98
[2019-03-28 11:02] VITALS: O2SAT 99
[2019-03-28 11:04] VITALS: BP 145/70
== END 2019-03-27 17:50 | disposition home or self-care (01) ==
LOC: ER 12:50
DX: R07.9 Chest pain, unspecified (principal); I10 Essential (primary) hypertension; E11.9 Type 2 diabetes mellitus without complications; E78.5 Hyperlipidemia, unspecified; F17.210 Nicotine dependence, cigarettes, uncomplicated; Z88.2 Allergy status to sulfonamides
CPT/HCPCS: 36415; 71045; 80048; 80076; 83735; 83880; 84484; 85025; 85610; 93005; 99284

== ENCOUNTER 2024-01-29 05:54 | Day surgery (SDC) | payer OTHER ==
--- NOTE | 2024-01-25 11:23 | RAD REPORT ---
Procedure: Chest Pa And Lat (2 Views) HISTORY: Preop for hip arthroplasty. COMPARISON: 2019 FINDINGS: The lungs appear clear of acute infiltrate. No significant pleural effusion noted. The heart is normal size. IMPRESSION: No acute abnormality is displayed.
[2024-01-25 11:25] LABS: Absolute Eosinophils 0.1 K/uL (0-0.5); Absolute Lymphocytes (CBC) 3.5 K/uL (0.7-4.9); Absolute Monocytes 0.5 K/uL (0.1-1.3); Absolute Neutrophil 2.5 K/uL (1.8-8.0); Basophils % 0.4 % (0-1.3); Eosinophils % 1.1 % (0-4.4); Hematocrit 42.5 % (36.0-45.0); Hemoglobin 13.7 g/dL (12.0-15.0); MCH 29.8 pg (27.0-35.0); MCHC 32.2 g/dL (32.0-36.0); MCV 92.7 fL (80-100); MPV 10.4 fL (7.6-11.3); Monocytes % 7.4 % (3.3-12.3); Neutrophils % 38.1 % (41.7-73.7); Platelets 191 thou/uL (152-406); RBC Red Blood Cell Count 4.58 M/uL (3.86-4.86); Red Cell Distribution Width 14.8 % (12.1-15.2)
[2024-01-25 11:31] LABS: PT Prothrombin Time 11.6 SECONDS (9.4-12.5); PTT, Activated Partial Thromb 32.5 SECONDS (24.3-36.9); Protime INR 1.04
[2024-01-25 11:41] LABS: Albumin 3.9 g/dL (3.4-5.0); Anion Gap 4.8 mEq/L (5.0-15.0); Bilirubin Total 0.3 mg/dL (0.2-1.0); Globulin 3.9 g/dL (2.3-3.5); Potassium 4.8 mEq/L (3.5-5.1); Protein, Total 7.8 g/dL (6.4-8.2); Specific Gravity 1.009 (1.005-1.030); Sqamous Epithelial None Seen /HPF (None Seen); Urine Bacteria None Seen /HPF (<20); Urine Bilirubin NEGATIVE (Negative); Urine Blood Trace (Negative); Urine Clarity Clear (Clear); Urine Color Colorless (Yellow); Urine Culture Reflex Order NOT NEEDED; Urine Glucose NEGATIVE (Negative); Urine Ketones NEGATIVE (Negative); Urine Microscopic Reflex YN ORDER UMIC; Urine Mucus Slight /HPF (None Seen); Urine Nitrite NEGATIVE (Negative); Urine Protein NEGATIVE (Negative); Urine RBC <5 /HPF (None Seen); Urine Urobilinogen Normal (Normal); Urine WBC <5 /HPF (<5); Urine pH 6.5 (5.0-7.0)
--- NOTE | 2024-01-25 14:44 | EKG ---
Test Date: 2024-01-25 Test Time: 11:55:07 Lens Polisher: RODGER MEASUREMENT RESULTS: Intervals: Rate: 71 [place]: 154 QRSD: 64 QT: 370 QTc: 402 [place]: P: 56 [place]: 154 QRS: 30 T: 56 INTERPRETIVE STATEMENTS: Normal sinus rhythm Possible Left atrial enlargement Borderline ECG Compared to ECG 03/27/2019 13:23:06 No significant changes Electronically Signed On 01-25-24 14:43:50 MACHINE MOLDER SQUEEZE by Valentino Benitez
[2024-01-29] MEDS ORDERED: dexAMETHasone 10 MG/ML VIAL ONE ×2 (05:55→06:01)
[2024-01-29] MEDS ORDERED: EPINEPHRINE 1 MG/ML VIAL ONE ×2 (05:56→06:01)
[2024-01-29] MEDS ORDERED: FENTANYL CITR 100 MCG/2 ML ONE ×2 (05:56→06:01)
[2024-01-29] MEDS ORDERED: DEXMEDETOMIDINE HCL 200 MCG/2 ML VIAL ONE ×2 (05:56→06:01)
[2024-01-29] MEDS ORDERED: MIDAZOLAM HCL 2 MG/2 ML INJ ONE ×2 (05:56→06:01)
[2024-01-29] MEDS ORDERED: MORPHINE SULFATE/PF 1 MG/ML (10 ML AMP) ONE ×2 (05:56→06:01)
[2024-01-29] MEDS ORDERED: MAGNESIUM SULFATE 1 gm IVPB 1 GM/100 ML BAG IV ONE ×2 (05:57→06:01)
[2024-01-29] MEDS ORDERED: ROPLVACAINE HCL 0 ML ONE (05:57)
[2024-01-29] MEDS ORDERED: ROPIVACAINE HCL 20 ML ONE ×2 (05:57→06:01)
[2024-01-29] MEDS ORDERED: KETOROLAC 30 MG/ML INJ ONE (06:01)
[2024-01-29] MEDS ORDERED: ONDANSETRON 4 MG/2 ML VIAL ONE (06:01)
[2024-01-29] MEDS ORDERED: LIDOCAINE 2% MPF 5 ML VIAL ONE (06:01)
[2024-01-29] MEDS ORDERED: dexAMETHasone 4 MG/ML VIAL ONE (06:01)
[2024-01-29] MEDS ORDERED: ROPLVACAINE HCL 20 ML ONE (06:01)
[2024-01-29] MEDS ORDERED: KETAMINE HCL IN 0.9 % NACL 50 MG/5 ML SYRINGE IV ONE (06:02)
[2024-01-29] MEDS ORDERED: propofoL 200 MG/20 ML VIAL IV ONE (06:02)
[2024-01-29] MEDS ORDERED: ROCURONIUM 50 MG/5 ML VIAL IV ONE (06:04)
[2024-01-29] MEDS ORDERED: LIDOCAINE 1% MPF 5 ML VIAL ONE (06:10)
[2024-01-29] MEDS: ACETAMINOPHEN 500 MG TAB ONE (06:30)
[2024-01-29] MEDS: CELECOXIB 100 MG CAPSULE ONE (06:30)
[2024-01-29] MEDS: Oxycodone HCl/Acetaminophen 5/325 MG TAB ONE (06:30)
[2024-01-29] MEDS: GABAPENTIN 100 MG CAP ONE (06:30)
[2024-01-29] MEDS ORDERED: BUPIVACAINE 0.75% (PF) 2 ML SP ONE (06:33)
[2024-01-29] MEDS: NA CHLORIDE 0.9% 1,000 ML ONE ×4 (06:35→11:44)
[2024-01-29] MEDS ORDERED: TRANEXAMIC ACID 1,000 MG/10 ML VIAL IV ONE (06:45)
[2024-01-29] MEDS: CEFAZOLIN SODIUM 2 GM/VIAL ONE (07:00)
[2024-01-29] MEDS ORDERED: EPHEDRINE SULF 50 MG/ML VIAL ONE (07:40)
[2024-01-29] MEDS ORDERED: ALBUMIN HUM 5% 500 ML IV ONE (08:00)
[2024-01-29] MEDS ORDERED: Phenylephrine HCl 10 MG/ML 1 ML VIAL ONE (08:05)
--- NOTE | 2024-01-29 08:52 | RAD REPORT ---
EXAMINATION: XR LEFT HIP CLINICAL INDICATION: . LEFT TOTAL HIP TECHNIQUE: Multiple views of the left hip were obtained. COMPARISON: No prior exam. FINDINGS: Intraoperative radiographs submitted of left total hip arthroplasty in progress. Hardware alignment is as expected.
[2024-01-29] MEDS ORDERED: ONDANSETRON 4 MG/2 ML VIAL IV PRN (09:21)
[2024-01-29] MEDS ORDERED: DOCUSATE NA 100 MG CAP PO PRN (09:21)
--- NOTE | 2024-01-29 09:28 | P.BOP ---
Preoperative diagnosis: left hip arthritis Postoperative diagnosis: same Primary procedure: left total hip arthoplasty Estimated blood loss: 100 ccs Anesthesia: General Transferred to: Recovery Room Condition: Good
[2024-01-29 10:24] LABS: Hemoglobin 11.1 g/dL (12.0-15.0)
[2024-01-29] MEDS ORDERED: NALOXONE 0.4 MG/ML VIAL IV PRN (11:08)
--- NOTE | 2024-01-29 11:10 | OP ---
Date of Procedure: 01/29/2024 Surgeon: Robson Amador MD Preoperative Diagnosis: Left hip degenerative joint disease with continued hip pain, unresolved with conservative measures. Postoperative Diagnosis: Left hip degenerative joint disease with continued hip pain, unresolved wit h conservative measures. Procedure: Left total hip arthroplasty using the Thayer system. Estimated Blood Loss: 100 cc. Complications: There were no complications. Indications For Operation: Ms. Waldrop is a 68-year-old female who may have multiple reasons for hip p ain, including the possibility of low back pain as well as other contributions, but she does have sym ptoms related to her groin and symptoms of pain with manipulation and movement of the hip. X-rays de monstrated definite arthritic changes of the hip, which were unresolved with conservative measures. Risks, benefits, and alternatives of different methods of treating this were discussed with her. She states she understands things as presented and opts for total hip arthroplasty. Description Of Procedure: The patient was taken to the operating room. Spinal anesthesia was obtain ed by Anesthesia staff. Following this, she was then rolled right side down with an axillary roll. Was appropriately positioned using hip positioners and general anesthesia. After this, left lower ex tremity was then prepped and draped in the usual sterile fashion for the procedure. A standard poste rior lateral incision was taken down carefully through skin and soft tissues. Meticulous hemostasis being maintained using Bovie electrocautery. After this, the fascia was encountered. A small stab i ncision was made in the fascia and the gluteal tendon was palpated to ensure its correct position. I t was then followed slowly up to near the tip of the greater trochanter where the gluteal muscles wer e encountered. It was then curved gently backward in the direction of the gluteal fibers and the glu teus muscle itself was spread using finger pressure. The sciatic nerve was then palpated and protect ed as the Charnley was then placed. After this, the external rotators and capsule were then removed from the posterior aspect of the hip and tagged for later repair. The hip was then dislocated and a slightly shorter than standard neck cut was then made. The head was then sized using ring gauges. T he acetabulum was inspected. Any soft tissues were removed as well as removal of the labrum. The ac etabulum was then sequentially reamed until there was good bleeding bone. A multi-hole cup was then placed, and the cup appeared to be extremely solid. Attention was then turned to the femur. Box cut ter was used to lateralize and then canal-finding reamer followed by broaching. X-rays were taken at this point, which demonstrates appropriately sized broach as well as good position of the acetabulum . The acetabulum was again checked to ensure that it was stable and the liner was placed and gently tapped and seated. After this, the final stem was placed. It was then trialed and it appeared that the -4 was the most appropriate. It was stable to full flexion, full adduction, and internal rotatio n to at least 45 degrees. This was selected and the final ball was then placed. The wound was copio usly irrigated and external rotators capsule repaired back to the greater trochanter via bone tunnels . It was again irrigated and the fascia was closed in a watertight fashion using heavy Vicryl suture s. It was again irrigated and skin was closed using Vicryl sutures followed by isaiah. The patient was then placed in Aquacel dressing, awakened, and taken to recovery room in good condition. There were no complications. SE/MODL Voice ID: [id number] Report ID: [id number]
[2024-01-29] MEDS ORDERED: METOCLOPRAMIDE 10 MG/2mL INJ IV PRN (11:40)
[2024-01-29] MEDS: EPHEDRINE SULF 50 MG/ML VIAL ONE (11:44)
[2024-01-29] MEDS: DIPHENHYDRAMINE 50 MG/ML VIAL IV PRN (14:15)
--- NOTE | 2024-01-29 14:50 | P.CNS ---
Date of Consult: 01/29/24 Reason for Consult: Medical Management Chief Complaint: Left total hip arthroplasty History of Present Illness: Patricia Waldrop is a 68 year old female with Pmhx COPD, hyperlipidemia, hypertension, diabetes mellitus who is admitted status post left total knee ar throplasty without complication with Dr. Amador. Hospital medicine team consulted for medical management. On examination, she is awake and oriented, lung sounds clear, NAD, and hemodynamically stable. Allergies Sulfa (Sulfonamide Antibiotics) [Sulfa(Sulfonamide Antibiotics)] Allergy (Intermediate, Verified 01/29/24 06:57) Itching/Hives/Rash Home Medications: Albuterol Sulfate [Proair Digihaler] 2 puff IH Q4HP PRN 01/25/24 Cholecalciferol (Vitamin D3) [Vitamin D3] 2,000 unit PO DAILY 01/25/24 Codeine/APAP [Tylenol W/Codeine #3 tab] 1 tab PO Q6HP PRN 01/25/24 Cyanocobalamin [Vitamin B-12] 1,000 mcg PO DAILY 01/25/24 Cyclobenzaprine [Flexeril] 10 mg PO TID PRN 01/25/24 Diclofenac Sodium [Voltaren] 75 mg PO BEDTIME PRN PRN 01/25/24 Duloxetine [Cymbalta Dalayed Release Pellets] 20 mg PO DAILY 01/25/24 Hydroxyzine HCl [Atarax] 10 mg PO DAILY 01/25/24 Losartan Potassium 100 mg PO DAILY 01/25/24 Rosuvastatin [Crestor] 10 mg PO BEDTIME 01/25/24 Semaglutide [Ozempic] 1 mg SQ EVERY 7TH DAY 01/25/24 Trazodone [Desyrel] 50 mg PO BEDTIME 01/25/24 - Past Medical/Surgical History Diabetic: Yes -: History of colon polyps -: HTN -: Hyperlipidemia -: Spinal stenosis -: Diabetes mellitus type 2 -: Diabetic neuropathy -: GERD -: Tobacco abuse -: History of colon polyps -: Tubal ligation -: Back surgery -: Colonoscopy -: retina reattachment Psychosocial/ Personal History: The patient is . She has 2 children. 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 - Family History Mother Medical History: Hypertension, Lung disease Father Medical History: Heart disease, Hypertension Brother Medical History: Heart disease, Hypertension, Lung disease Sister Medical History: Hypertension, Other (see notes) Notes: "thyroid problems - cannot recall the name" - Social History Smoking Status: Current every day smoker Alcohol use: Yes CD- Drugs: No Caffeine use: Yes Place of Residence: Home Review of Systems Unremarkable Physical Examination Temp Pulse Resp BP Pulse Ox 97.7 F 90 16 104/63 90 L 01/29/24 14:41 01/29/24 14:41 01/29/24 14:41 01/29/24 14:41 01/29/24 14:41 General: Alert, In no apparent distress, Oriented x3 HEENT: Atraumatic, Normocephalic, PERRLA Neck: Supple, 2+ carotid pulse no bruit, JVD not distended Respiratory: Clear to auscultation bilaterally, Normal air movement Cardiovascular: No edema, Normal pulses, Regular rate/rhythm, Normal S1 S2 Capillary refill: <2 Seconds Gastrointestinal: Normal bowel sounds, Soft and benign, No tenderness Musculoskeletal: No clubbing, Other (Left hip dressing CDI) Integumentary: No rashes Laboratory Data (last 24 hrs) 01/29/24 10:02 Hgb 11.1 L Hct 34.0 L Conclusions/Impression: Assessment and plan Left hip degenerative joint disease status post left total hip arthroplasty -Dr. Amador managing -intraoperative imaging showing hardware alignment as expected -H/H , redraw tonight for continued monitoring -Physical therapy -Pain control -Antiemetics -Ancef IV x 3 bags total -operative giles to be dc tomorrow AM (01/29) Diabetes mellitus -Accucheck ACHS -continue home ozempic COPD Hyperlipidemia Hypertension -Continue home medications -hold antihypertensives for now, s/p anesthesia Smoking Abuse -cessation education provided DVT PPx Lovenox per Dr. Amador Full code LOS 2 days
[2024-01-29 15:07] VITALS: BMI 30.1
[2024-01-29] MEDS ORDERED: CODEINE 30MG/APAP 300MG TAB PO PRN (15:15)
[2024-01-29] MEDS ORDERED: D10W 125 ML IV PRN (15:19)
[2024-01-29] MEDS ORDERED: GLUCAGON 1 MG/VIAL IM PRN (15:19)
[2024-01-29] MEDS ORDERED: [UNRECOGNIZED DRUG - OTHER] PO PRN (15:34)
[2024-01-29] MEDS: INSULIN REGULAR (HUMAN) 100 UNIT/ML SQ SCH (16:30)
[2024-01-29] MEDS: ALBUTEROL 2.5 MG/3 ML NEB SOL NEB SCH (17:00)
[2024-01-29] MEDS: CEFAZOLIN 1 GM in NA CHLORIDE 0.9% 50 ML IVPB SCH (17:29)
[2024-01-29 17:47] LABS: Hematocrit 36.2 % (36.0-45.0); Hemoglobin 11.8 g/dL (12.0-15.0)
[2024-01-29] MEDS: TRAZODONE 50 MG TABLET PO SCH (20:06)
[2024-01-29] MEDS: ROSUVASTATIN 10 MG TAB PO SCH (20:06)
[2024-01-30] MEDS: HYDROCODONE/APAP 7.5/325 MG TAB PO PRN (00:43)
[2024-01-30 07:01] LABS: Absolute Basophils 0.1 K/uL (0-0.5); Absolute Lymphocytes (CBC) 1.9 K/uL (0.7-4.9); Absolute Neutrophil 15.4 K/uL (1.8-8.0); Basophils % 0.6 % (0-1.3); Eosinophils % 0.1 % (0-4.4); Hematocrit 33.4 % (36.0-45.0); Hemoglobin 10.7 g/dL (12.0-15.0); Lymphocytes % 10.4 % (15.3-44.8); MCV 93.6 fL (80-100); MPV 10.8 fL (7.6-11.3); Monocytes % 5.5 % (3.3-12.3); Neutrophils % 83.4 % (41.7-73.7); Platelets 136 thou/uL (152-406); RBC Red Blood Cell Count 3.57 M/uL (3.86-4.86); Red Cell Distribution Width 14.7 % (12.1-15.2)
[2024-01-30 07:19] LABS: Magnesium 2.1 mg/dL (1.6-2.4); Phosphorus 2.8 mg/dL (2.5-4.9)
[2024-01-30] MEDS: ENOXAPARIN 40 MG/0.4 ML SQ SCH (08:30)
[2024-01-30] MEDS: DULOXETINE 20 MG CAP PO SCH (08:30)
[2024-01-30] MEDS: HYDROXYZINE HCL 10 MG/5 ML SYRUP UD PO SCH (08:30)
[2024-01-30] MEDS ORDERED: HOME MED 1 EA UNK (Hydroxyzine Hcl [Atarax] 10 MG Tablet) PO SCH (09:00)
--- NOTE | 2024-01-30 15:56 | P.PN ---
Subjective Date of Service: 01/30/24 Chief Complaint: Left total hip arthroplasty She is complaining of persistent left hip pain after surgery, pain is precipitated by bearing weight, reasonably controlled with the oral analgesics, Review of Systems Other: Consitutional; fever(-), chills (-), rigor(-), night sweat(-), unintentional weight loss(-) HEENT; diplopia (-), rhinorrhea (-), epistaxis (-), otorrhea (-), otalgia (-) Respiratory; shortness of breath (-), wheezing (-), cough (-), sputum (-), pleuritic chest pain (-) Cardiovascular; chest pain (-), peripheral edema (-), paroxysmal nocturnal dyspnea (-), orthopnea (-) Gastrointestinal; nausea (-), vomiting (-), abdominal pain (-), diarrhea (-), constipation (-), melena (-), hematochezia (-) Urinary; urinary frequency (-), dysuria (-), urgency (-), flank pain (-), gross hematuria (-), incontinence (-) Skin; rash (-), 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 General: Obese, not acutely ill looking, in no apparent distress,. HEENT: Normocephalic, atraumatic, nonicteric sclera, nonanemic conjunctive. Neck: Supple, without JVD or goiter or thyroid mass. Respiratory: Normal breathing effort, clear to auscultation bilaterally, no crackles no wheezing or rhonchi. Cardiovascular: Regular rate and rhythm, S1, S2 normal, no murmur no gallop. Gastrointestinal: Normal bowel sounds, nondistended, nontender, No ascites, , No masses, no hepatosplenomegaly. Extremities l: No clubbing, No peripheral edema, full range of motion, no deformity, no muscle atrophy. Integumentary: No rashes, petechia, suspected lesions. Lymphatics: No axilla or cervical lymphadenopathy. Neurology; alert awake oriented x3, no focal neurologic deficit, normal affection . mood and behavior. - Studies Laboratory Data (last 24 hrs) 01/30/24 01/30/24 01/29/24 06:45 06:45 17:21 WBC 18.50 H Hgb 10.7 L D 11.8 L Hct 33.4 L 36.2 Plt Count 136 L Sodium 137 Potassium 5.0 BUN 16 Creatinine 0.91 Glucose 166 H Phosphorus 2.8 Magnesium 2.1 Assessment And Plan - Plan This is a 68 years old female patient with past medical history of for osteoarthritis of the left hip, hypertension, type II diabetic, hyperlipidemia, no history of PE or DVT has been admitted after elective left hip total arthroplasty. #1 status post left total hip arthroplasty Good postoperative recovery, continuous pain control with oral and IV analgesics as needed #2 well-controlled type 2 diabetes Hemoglobin A1c 6.2, good glycemic control, continue Ozempic and moderate insulin sliding scale #3 history of hypertension Her blood pressure reasonably controlled without antihypertensive medication, patient can resume her losartan after discharge. #4 anemia due to perioperative blood loss Hemoglobin stable around 10-11, which is expected and acceptable. DVT prophylaxis; continue enoxaparin subcu during hospitalization, recommend 5 to 7 days of enoxaparin subcu or rivaroxaban 10 mg once a day p.o. then switch over to aspirin 81 mg twice daily for total 35 days Internal medicine will sign off, please contact us if you have any questions or concerns.
[2024-01-30] MEDS: CYCLOBENZAPRINE 10 MG TAB PO PRN (21:15)
[2024-01-31 06:47] LABS: Absolute Lymphocytes (CBC) 3.5 K/uL (0.7-4.9); Absolute Monocytes 0.8 K/uL (0.1-1.3); Absolute Neutrophil 8.6 K/uL (1.8-8.0); Basophils % 0.2 % (0-1.3); Eosinophils % 0.3 % (0-4.4); Hematocrit 31.6 % (36.0-45.0); Hemoglobin 10.1 g/dL (12.0-15.0); Lymphocytes % 26.9 % (15.3-44.8); MCH 29.7 pg (27.0-35.0); MCV 92.7 fL (80-100); MPV 10.5 fL (7.6-11.3); Monocytes % 6.2 % (3.3-12.3); Neutrophils % 66.4 % (41.7-73.7); Platelets 127 thou/uL (152-406); RBC Red Blood Cell Count 3.41 M/uL (3.86-4.86); Red Cell Distribution Width 14.7 % (12.1-15.2)
[2024-01-31 06:56] LABS: Anion Gap 6.3 mEq/L (5.0-15.0); Phosphorus 2.6 mg/dL (2.5-4.9); Potassium 4.3 mEq/L (3.5-5.1)
[2024-01-31 09:43] VITALS: O2SAT 93
[2024-01-31 13:05] VITALS: BP 131/71; TEMP 97.9
[2024-02-04] MEDS ORDERED: SEMAGLUTIDE 1 MG/0.75 ML SQ SCH (09:00)
== END 2024-01-31 14:00 | disposition home health service (06) ==
LOC: OR 05:54 → 4TH 09:21 → OR 01-31 16:57
PROVIDERS: ATTEND Orthopaedic Surgery
PROC: 0SRB0JA Replacement of Left Hip Joint with Synthetic Substitute, Uncemented, Open Approach (ICD-10-PCS; principal; 2024-01-29 07:00)
DX: M16.12 Unilateral primary osteoarthritis, left hip (principal); M25.552 Pain in left hip
CPT/HCPCS: 27130; 93005; 85025 ×3; 81001; 80048 ×2; 36415 ×3; 83735 ×2; 84100 ×2; 85610; 82947 ×11; 88305; 88311; 85730; 85018 ×2; 85014 ×2; 83036; 80053; 71046; 73501; 97110; 97116 ×4; 97161; 97530 ×4; 94760 ×3; C1776; J3475 ×2; P9045; J2704; J1100 ×2; J1200; J2003 ×2; J2371; J7613; J1650; J2250 ×2; J3010 ×2; J0171 ×2; J2405; J7030 ×4; J0690 ×2